=== PATIENT | female | born 1935 | race Caucasian/White ===

== ENCOUNTER 2016-09-27 06:28 | Emergency (ER) | payer OTHER, MEDICARE ==
[~2016-09-27] VITALS: Ht 162.6 cm; Wt 45.0 kg
[~2016-09-27 06:28] MED LIST: MAGN400T6 PO; METO25TA3 PO; XNX25 PO
[2016-09-27 06:32] VITALS: TEMP 36.7; Ht 162.6 cm; Wt 45.0 kg
[2016-09-27] MEDS ORDERED: XNX25 PO (06:49)
[2016-09-27] MEDS ORDERED: TPRSR/25 PO (06:49)
[2016-09-27] MEDS ORDERED: RANI150T2 PO (06:49)
[2016-09-27] MEDS ORDERED: SODIUM CHLORIDE 0.9% 500ML 500 ML IV STA (06:53)
[2016-09-27] MEDS ORDERED: ACET1TAB84 PO (06:54)
--- NOTE | 2016-09-27 06:57 | EMERGENCY ROOM VISIT NOTE ---
History Report prepared by Jeremy: Elina Haro Under the Supervision of: Dr. José Luis Jaime M.D. First contact with patient: 06:46 Chief Complaint: URINARY SYMPTOMS Stated Complaint: WEAKNESS Nursing Triage Summary: patient presents via EMS with c/o urinary frequency and also c/o feeling " shaky and weak" for past two days that worsened tonight. History of Present Illness The patient is a 80 year old female who presents to the Emergency Room with complaints of worsening urinary frequency beginning 2 days prior to arrival. The patient has been experiencing intermittent urinary tract infections for the past few years. She states that when the urinary symptoms present she is also experiencing headache, confusion, shakes, and weakness. The patient has had diarrhea episodes. She states that she saw her PCP on Sunday and no urinary tract infection was shown in the urine. A blood test showed that she was dehydrated. The patient has seen a urologist for the urinary issues. She notes a 30 pound weight loss in the past year with no known cause for the loss. The patient denies syncope episode, cough or fever. 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 A total of 10 systems reviewed and were otherwise negative. Past Medical & Surgical Medical Problems: (1) Depression (2) GERD (gastroesophageal reflux disease) Family History No pertinent family history Social History Smoking Status: Never Smoker Alcohol Use: none Housing Status: lives alone Occupation Status: retired Current/Historical Medications Scheduled Acetaminophen (Tylenol Arthritis Ext Rel), 650 MG PO Q8H Alprazolam (Alprazolam), 0.5 MG PO TID Metoprolol Succinate (Metoprolol Succinate ER), 12.5 MG PO QAM Ranitidine HCl (Ranitidine HCl), 150 MG PO DAILY Allergies Coded Allergies: Iodinated Diagnostic Agents (Unverified Allergy, Severe, Pt unable to describe, 09/27/16) states she was told never to allow to be given again due to severity of reaction Celecoxib (Verified Allergy, Mild, 09/27/16) Macrolides (Verified Allergy, Mild, 09/27/16) Corticosteroids (Verified Allergy, Unknown, 09/27/16) Sulfa Drugs (Verified Allergy, Unknown, 09/27/16) Dextromethorphan (Unverified Adverse Reaction, Intermediate, DIZZY, ) Guaifenesin (Unverified Adverse Reaction, Intermediate, DIZZY, 09/27/16) Procaterol (Unverified Adverse Reaction, Intermediate, Palpitations, ) Yellow Dye (Unverified Adverse Reaction, Intermediate, DIZZY, 09/27/16) Erythromycin (Verified Adverse Reaction, Unknown, stomach upset, 09/27/16) Physical Exam Vital Signs Date Time Temp Pulse Resp B/P (MAP) Pulse Ox O2 Delivery O2 Flow Rate FiO2 09/27/16 09:15 86 18 170/82 99 Room Air 09/27/16 07:58 82 09/27/16 07:55 82 22 160/87 09/27/16 06:39 90 09/27/16 06:32 36.7 88 22 175/96 100 Room Air Physical Exam GENERAL: Patient is frail, anxious appearing and in no acute distress. HEENT: No acute trauma, normocephalic atraumatic, mucous membranes dry, no nasal congestion, no scleral icterus. NECK: No stridor, no adenopathy, no meningismus, trachea is midline. LUNGS: No dyspnea. Clear to auscultation and equal bilaterally. No wheeze, no rhonchi. HEART: Regular rate and rhythm. No murmurs, rubs, gallops appreciated. ABDOMEN: Soft, nontender, bowel sounds positive, no masses appreciated, no peritonitis. BACK: No midline tenderness, no CVA tenderness EXTREMITIES: Normal motion all extremities, no cyanosis, no edema. NEUROLOGIC: Alert and oriented, no acute motor or sensory deficits, no focal weakness, cranial nerves grossly intact. SKIN: No rash, no jaundice, no diaphoresis. Medical Decision & Procedures ER Provider Diagnostic Interpretation: Radiology results and stated below per my review and radiologist interpretation: CT SCAN OF THE BRAIN WITHOUT IV CONTRAST CLINICAL HISTORY: Generalized weakness. COMPARISON STUDY: CT of the brain dated 07/08/2014. TECHNIQUE: Unenhanced axial CT scan of the brain is performed from the vertex to the skull base. CT DOSE: 537.48 mGy.cm FINDINGS: Brain parenchyma: There are age-related involutional changes noting mild subcortical and periventricular microangiopathic change. There is no hemorrhage, mass effect, or evidence of acute territorial ischemia by CT criteria. Morse-white matter is preserved. No extra-axial fluid collection is seen. Ventricles, sulci, cisterns: Prominent secondary to involutional change. Intracranial vasculature: There is atherosclerotic calcification of the cavernous carotid and vertebral arteries. Calvarium: Unremarkable. Sinuses and mastoids: The visualized paranasal sinuses are clear. The mastoid air cells are well pneumatized. Orbits: The bony orbits are grossly intact. IMPRESSION: There is no hemorrhage, mass effect, or evidence of acute territorial ischemia by CT criteria. Electronically signed by: Blair Swift M.D. 09/27/2016 7:52 AM Dictated Date/Time: 09/27/2016 7:50 AM CHEST ONE VIEW PORTABLE CLINICAL HISTORY: Generalized Weakness dyspnea COMPARISON STUDY: 01/08/2006 FINDINGS: Mild emphysematous change. Mild chronic parenchymal fibrotic change. Minimal apical pleural thickening. No acute infiltrate. IMPRESSION: Chronic change. No acute process. Electronically signed by: Arnie Yanez M.D. 09/27/2016 7:07 AM Dictated Date/Time: 09/27/2016 7:06 AM Laboratory Results 09/27/16 07:15 Red Blood Count 3.99, Mean Corpuscular Volume 95.2, Mean Corpuscular Hemoglobin 31.3, Mean Corpuscular Hemoglobin Concent 32.9, Mean Platelet Volume 10.3, Neutrophils (%) (Auto) 68.8, Lymphocytes (%) (Auto) 22.3, Monocytes (%) (Auto) 7.1, Eosinophils (%) (Auto) 0.8, Basophils (%) (Auto) 0.8, Neutrophils # (Auto) 4.35, Lymphocytes # (Auto) 1.41, Monocytes # (Auto) 0.45, Eosinophils # (Auto) 0.05, Basophils # (Auto) 0.05 09/27/16 07:15 Test 09/27/16 06:40 09/27/16 07:15 Urine Color YELLOW Urine Appearance CLEAR (CLEAR) Urine pH 8.5 (4.5-7.5) Urine Specific [place] 1.009 (1.000-1.030) Urine Protein NEG (NEG) Urine Glucose (UA) NEG (NEG) Urine Ketones NEG (NEG) Urine Occult Blood NEG (NEG) Urine Nitrite NEG (NEG) Urine Bilirubin NEG (NEG) Urine Urobilinogen NEG (NEG) Urine Leukocyte Esterase NEG (NEG) Urine WBC (Auto) 0 /hpf (0-5) Urine RBC (Auto) 0-4 /hpf (0-4) Urine Hyaline Casts (Auto) 0 /lpf (0-5) Urine Epithelial Cells (Auto) 0-5 /lpf (0-5) Urine Bacteria (Auto) NEG (NEG) White Blood Count 6.32 K/uL (4.8-10.8) Red Blood Count 3.99 M/uL (4.2-5.4) Hemoglobin 12.5 g/dL (12.0-16.0) Hematocrit 38.0 % (37-47) Mean Corpuscular Volume 95.2 fL (80-100) Mean Corpuscular Hemoglobin 31.3 pg (25-34) Mean Corpuscular Hemoglobin Concent 32.9 g/dl (32-36) Platelet Count 300 K/uL (130-400) Mean Platelet Volume 10.3 fL (7.4-10.4) Neutrophils (%) (Auto) 68.8 % Lymphocytes (%) (Auto) 22.3 % Monocytes (%) (Auto) 7.1 % Eosinophils (%) (Auto) 0.8 % Basophils (%) (Auto) 0.8 % Neutrophils # (Auto) 4.35 K/uL (1.4-6.5) Lymphocytes # (Auto) 1.41 K/uL (1.2-3.4) Monocytes # (Auto) 0.45 K/uL (0.11-0.59) Eosinophils # (Auto) 0.05 K/uL (0-0.5) Basophils # (Auto) 0.05 K/uL (0-0.2) RDW Standard Deviation 47.4 fL (36.4-46.3) RDW Coefficient of Variation 13.6 % (11.5-14.5) Immature Granulocyte % (Auto) 0.2 % Immature Granulocyte # (Auto) 0.01 K/uL (0.00-0.02) Erythrocyte Sedimentation Rate 10 mm/hr (0-21) Prothrombin Time 10.7 SECONDS (9.0-12.0) Prothromb Time International Ratio 1.0 (0.9-1.1) Activated Partial Thromboplast Time 24.5 SECONDS (21.0-31.0) Partial Thromboplastin Ratio 0.9 Anion Gap 7.0 mmol/L (3-11) Est Creatinine Clear Calc Drug Dose 49.8 ml/min Estimated GFR () 97.5 Estimated GFR (Non- 84.1 BUN/Creatinine Ratio 25.0 (10-20) Calcium Level 8.6 mg/dl (8.5-10.1) Phosphorus Level 2.9 mg/dl (2.5-4.9) Magnesium Level 2.4 mg/dl (1.8-2.4) Total Bilirubin 0.5 mg/dl (0.2-1) Direct Bilirubin 0.1 mg/dl (0-0.2) Aspartate Amino Transf (AST/SGOT) 18 U/L (15-37) Alanine Aminotransferase (ALT/SGPT) 23 U/L (12-78) Alkaline Phosphatase 57 U/L (45-117) Total Creatine Kinase 159 U/L (26-192) Creatine Kinase MB 2.9 ng/ml (0.5-3.6) Creatine Kinase MB Ratio 1.8 (0-3.0) Troponin I < 0.015 ng/ml (0-0.045) C-Reactive Protein < 0.29 mg/dl (0-0.29) Total Protein 7.2 gm/dl (6.4-8.2) Albumin 3.7 gm/dl (3.4-5.0) Lipase 158 U/L (73-393) Thyroid Stimulating Hormone (TSH) 1.140 uIu/ml (0.300-4.500) Free Thyroxine 1.20 ng/dl (0.80-1.60) Laboratory results as reviewed by me. Medications Administered Medications (Trade) Dose Ordered Sig/Adriana Route Start Time Stop Time Status Last Admin Dose Admin Sodium Chloride 500 ml @ 999 mls/hr Q31M STAT IV 09/27/16 06:53 09/27/16 07:23 DC 09/27/16 07:53 999 MLS/HR ECG Indication: weakness Rate (beats per minute): 86 Rhythm: normal sinus Findings: [facility] ED Course 0647: The patient was evaluated in room B11. A complete history and physical exam was performed. 0653: Sodium Chloride 500 ml @ 999 mls/hr IV. 0831: The patient is feeling the same. I talked with the family and patient. They are requesting [facility] hospitalist to evaluate the patient. 0836: Discussed the patient's case with Dr. Eugene Gresham. The patient will be evaluated. 920: I spoke with Dr. Eugene Gresham about the patient. He feels she should continue following with PCP and ask about follow up with Urology. 924: Reevaluated the patient. Discussed results and discharge instructions: She verbalized understanding and agreement. The patient is ready for discharge. Medical Decision Differential: Sepsis, Infectious (UTI/Pneumonia/Meningitis/etc), Metabolic/ Electrolyte Abnormality, Cardiac, Hepatic, Endocrine, Toxicologic, Neurologic, amongst other pathologies entertained. Medication Reconciliation: I attest that I have personally reviewed the patient 's current medication list. Blood pressure screening: Patient was found to have an elevated blood pressure and was referred to their primary doctor for recheck and further treatment. 80 yr old female with genearlized weakness, weight loss, and episodes of confusion/forgetfulness over last few weeks/months. She is in no distress here and looks well. Large work-up unremarkable, including negative CT head. Discussed limitations of ED testing and family requested evaluation by hospitalist. Hospitalist agrees no indication for admission at this time and that continued outpatient work-up reasonable. Discussed at length ability to return if worsening symptoms or other concerns. Consults Time Called: 08 Consulting Physician: Dr. Eugene Gresham Returned Call: 0836 Discussed the patient's case with Dr. Eugene Gresham. The patient will be evaluated. Impression Primary Impression: Generalized weakness Scribe Attestation The scribe's documentation has been prepared under my direction and personally reviewed by me in its entirety. I confirm that the note above accurately reflects all work, treatment, procedures, and medical decision making performed by me. Departure Information Dispostion Home / Self-Care Referrals Alonzo Limon D.O. (PCP) Forms HOME CARE DOCUMENTATION FORM, IMPORTANT VISIT INFORMATION Patient Instructions My [facility] Additional Instructions It is advised you follow up with Neurology. Discuss a referral with your primary care provider. We are always here to help. You have been examined and treated today on an emergency basis only. This is not a substitute for, or an effort to provide, complete comprehensive medical care. It is impossible to recognize and treat all injuries or illnesses in a single emergency department visit. It is therefore important that you follow up closely with your Primary Physician. Call as soon as possible for an appointment so you can review all labs, imaging and other testing that you had. Return to Emergency Department, call 911 or seek immediate medical attention if you feel your symptoms are worsening.
--- NOTE | 2016-09-27 07:08 | DIAGNOSTIC IMAGING REPORT ---
CHEST ONE VIEW PORTABLE CLINICAL HISTORY: Generalized Weakness dyspnea COMPARISON STUDY: 01/08/2006 FINDINGS: Mild emphysematous change. Mild chronic parenchymal fibrotic change. Minimal apical pleural thickening. No acute infiltrate. IMPRESSION: Chronic change. No acute process. Electronically signed by: Arnie Yanez M.D. 09/27/2016 7:07 AM Dictated Date/Time: 09/27/2016 7:06 AM
[2016-09-27 07:29] LABS: BASO % 0.8 %; BASO ABS # 0.05 K/uL (0-0.2); COMPLETE YES; EOS % 0.8 %; IG% 0.2 %; LYMPH % 22.3 %; LYMPH ABS # 1.41 K/uL (1.2-3.4); MEAN CELL VOLUME 95.2 fL (80-100); MEAN CORPUSCULAR HEMOGLOBIN 31.3 pg (25-34); MEAN CORPUSCULAR HGB CONC 32.9 g/dl (32-36); MEAN PLATELET VOLUME 10.3 fL (7.4-10.4); MONO % 7.1 %; NEUT % 68.8 %; PLATELET COUNT 300 K/uL (130-400); RED BLOOD COUNT 3.99 M/uL (4.2-5.4); WHITE BLOOD COUNT 6.32 K/uL (4.8-10.8)
[2016-09-27 07:32] LABS: URINE APPEARANCE CLEAR (CLEAR); URINE BILIRUBIN NEG (NEG); URINE COLOR YELLOW; URINE EPITHELIAL CELL AUTO 0-5 /lpf (0-5); URINE NITRITE NEG (NEG); URINE PH 8.5 (4.5-7.5); URINE SPECIFIC GRAVITY 1.009 (1.000-1.030); UROBILINOGEN NEG (NEG); ZZUR CULT IF INDIC CLEAN CATCH NO
[2016-09-27 07:40] LABS: MANUAL MICROSCOPIC REQUIRED? NO; REVIEW REQ? NO
[2016-09-27 07:43] LABS: PARTIAL THROMBOPLASTIN RATIO 0.9; PROTHROMBIN TIME (PATIENT) 10.7 SECONDS (9.0-12.0)
[2016-09-27 07:46] LABS: ALT/SGPT 23 U/L (12-78); AST/SGOT 18 U/L (15-37); BLOOD UREA NITROGEN 16 mg/dl (7-18); CALCIUM 8.6 mg/dl (8.5-10.1); CARBON DIOXIDE 27 mmol/L (21-32); CHLORIDE 111 mmol/L (98-107); CREATININE 0.63 mg/dl (0.60-1.20); GLUCOSE 88 mg/dl (70-99); MAGNESIUM 2.4 mg/dl (1.8-2.4); POTASSIUM 3.9 mmol/L (3.5-5.1); SODIUM 145 mmol/L (136-145)
[2016-09-27 07:50] LABS: ALKALINE PHOSPHATASE 57 U/L (45-117); C-REACTIVE PROTEIN < 0.29 mg/dl (0-0.29); CKMB/CK RATIO 1.8 (0-3.0); PHOSPHORUS 2.9 mg/dl (2.5-4.9)
--- NOTE | 2016-09-27 07:53 | DIAGNOSTIC IMAGING REPORT ---
CT SCAN OF THE BRAIN WITHOUT IV CONTRAST CLINICAL HISTORY: Generalized weakness. COMPARISON STUDY: CT of the brain dated 07/08/2014. TECHNIQUE: Unenhanced axial CT scan of the brain is performed from the vertex to the skull base. CT DOSE: 537.48 mGy.cm FINDINGS: Brain parenchyma: There are age-related involutional changes noting mild subcortical and periventricular microangiopathic change. There is no hemorrhage, mass effect, or evidence of acute territorial ischemia by CT criteria. Morse-white matter is preserved. No extra-axial fluid collection is seen. Ventricles, sulci, cisterns: Prominent secondary to involutional change. Intracranial vasculature: There is atherosclerotic calcification of the cavernous carotid and vertebral arteries. Calvarium: Unremarkable. Sinuses and mastoids: The visualized paranasal sinuses are clear. The mastoid air cells are well pneumatized. Orbits: The bony orbits are grossly intact. IMPRESSION: There is no hemorrhage, mass effect, or evidence of acute territorial ischemia by CT criteria. Electronically signed by: Blair Swift M.D. 09/27/2016 7:52 AM Dictated Date/Time: 09/27/2016 7:50 AM
[2016-09-27 08:16] LABS: THYROID STIMULATING HORMONE 1.14 uIu/ml (0.300-4.500)
[2016-09-27 09:15] VITALS: BP 170/82; PULSE 86; O2SAT 99
== END 2016-09-27 09:58 | disposition home or self-care (01) ==
LOC: EDBD 06:28 → C.EDB 06:29
DX: R53.1 Weakness (principal); F32.9 Major depressive disorder, single episode, unspecified; K21.9 Gastro-esophageal reflux disease without esophagitis

== ENCOUNTER → 2016-10-05 | Outpatient (CLI) | payer OTHER, MEDICARE ==
[~2016-10-05] MED LIST changes: +ACET1TAB84 PO; -MAGN400T6 PO; -METO25TA3 PO; +RANI150T2 PO; +TPRSR/25 PO
--- NOTE | 2016-10-05 16:08 | DIAGNOSTIC IMAGING REPORT ---
MRI OF THE BRAIN WITHOUT CONTRAST CLINICAL HISTORY: Gait dysfunction. Confusion. Dementia. COMPARISON STUDY: Head CT September 27, 2016. TECHNIQUE: Utilizing a 1.5 Daja magnet and dedicated coil, multiplanar, multiecho imaging of the brain was performed without IV contrast. FINDINGS: There are no areas of restricted diffusion. No acute intracranial hemorrhage, midline shift or mass effect is present. Ventricular system is normal for age. Basilar cisterns are patent. Flow-voids for the major intracranial vessels are present. There is mild atrophy. There are are multiple white matter T2 hyperintense foci which suggest small vessel disease. There is no intracranial mass on this unenhanced examination. Calvarial signal is maintained. Orbits and sinuses are unremarkable. IMPRESSION: 1. No acute intracranial findings. 2. Mild atrophy and scattered white matter T2 hyperintense foci which suggest small vessel disease. Electronically signed by: Keshav Perez M.D. 10/05/2016 4:07 PM Dictated Date/Time: 10/05/2016 4:04 PM
--- NOTE | 2016-10-05 16:31 | DIAGNOSTIC IMAGING REPORT ---
CERVICAL SPINE MRI HISTORY: Neck pain. COGNITIVE CHANGES, GAIT DYSFUNCTION TECHNIQUE: Multiplanar multisequence MRI of the cervical spine was performed without the use of contrast. COMPARISON STUDY: None. FINDINGS: Mild levoscoliosis of the cervical spine. Straightening of the cervical spine. Alignment is intact. No fractures within the cervical spine. Prevertebral soft tissues and the C1-C2 interval are maintained. The cervical spinal cord demonstrates a normal signal intensity. Bilateral C3-C4 facets are fused. Mild disc space narrowing at C3-C4. Moderate disc space narrowing at C5-C6 and C6-C7. C2-C3: No significant central canal or neural foraminal narrowing. C3-C4: No significant central canal or neural foraminal narrowing. C4-C5: Small broad-based posterior disc osteophyte complex which abuts and slightly deforms the anterior cord. Mild right neural foraminal narrowing. C5-C6: Tiny broad-based posterior disc osteophyte complex without significant central canal or neural foraminal narrowing. C6-C7: Tiny broad-based posterior disc osteophyte complex without significant central canal or neural foraminal narrowing. C7-T1: No significant central canal or neural foraminal narrowing. IMPRESSION: 1. Straightening of the cervical spine. 2. Mild levoscoliosis. 3. Mild degenerative changes as described above. Electronically signed by: Jermain Elena M.D. 10/05/2016 4:30 PM Dictated Date/Time: 10/05/2016 4:20 PM
== END | disposition home or self-care (01) ==
LOC: C.MRIBC 15:16
PROVIDERS: ATTEND Psychiatry & Neurology Neurology
DX: R26.9 Unspecified abnormalities of gait and mobility (principal); R41.89 Other symptoms and signs involving cognitive functions and awareness

== ENCOUNTER 2018-07-31 11:17 | Observation (INO) ==
[2018-07-31 12:20] LABS: Appearance Urine Clear (Clear); Bacteria Urine Automated Negative (Negative); Bilirubin Urine Negative (Negative); Blood Urine Negative (Negative); Cast Urine Automated 0 /lpf (0-5); Color Urine Yellow; Glucose Urine UA Negative (Negative); Ketones Urine Negative (Negative); Leukocyte Esterase Urine Trace (Negative); Nitrite Urine Negative (Negative); Protein Urine Negative (Negative); RBC Urine Automated 0-4 /hpf (0-4); Specific Gravity Urine 1.011 (1.000-1.030); Urobilinogen Urine Negative (Negative); pH Urine 7.5 (4.5-7.5)
[2018-07-31 12:44] LABS: Basophils # (auto) 0.04 K/uL (0-0.2); Basophils % (auto) 0.5 %; Eosinophils # (auto) 0.11 K/uL (0-0.5); Eosinophils % (auto) 1.3 %; Hematocrit (blood only) 34.9 % (37-47); Hemoglobin 11.4 g/dL (12.0-16.0); Immature Granulocytes # (auto) 0.02 K/uL (0.00-0.02); Immature Granulocytes % (auto) 0.2 %; Lymphocytes # (auto) 2.14 K/uL (1.2-3.4); Lymphocytes % (auto) 25.9 %; Mean Corpuscular Hgb Conc 32.7 g/dL (32-36); Mean Corpuscular Volume 94.1 fL (80-100); Mean Platelet Volume 10.1 fL (7.4-10.4); Monocytes # (auto) 0.74 K/uL (0.11-0.59); Monocytes % (auto) 8.9 %; Neutrophils # (auto) 5.22 K/uL (1.4-6.5); Neutrophils % (auto) 63.2 %; Platelet Count 318 K/uL (130-400); RDW Coefficient of Variation 14.7 % (11.5-14.5); RDW Standard Deviation 50.4 fL (36.4-46.3); Red Blood Count 3.71 M/uL (4.2-5.4); White Blood Count 8.27 K/uL (4.8-10.8)
[2018-07-31 13:05] LABS: Alanine Aminotransferase 19 U/L (12-78); Albumin Level 3.2 gm/dl (3.4-5.0); Aspartate Aminotransferase 17 U/L (15-37); BUN Creatinine Ratio 23.6 (10-20); Blood Urea Nitrogen 16 mg/dl (7-18); Calcium 8.9 mg/dl (8.5-10.1); Carbon Dioxide 30 mmol/L (21-32); Chloride 107 mmol/L (98-107); Creatinine Clr Calc Pharmacy 54.1 ml/min; Est GFR (African American) 93.8; Est GFR (Non-African American) 80.9; Glucose 83 mg/dl (70-99); Potassium 3.9 mmol/L (3.5-5.1); Sodium 142 mmol/L (136-145)
[2018-07-31 13:10] LABS: Albumin Globulin Ratio 0.8 (0.9-2); Alkaline Phosphatase 68 U/L (45-117); Bilirubin,Total 0.3 mg/dl (0.2-1); Globulin 3.9 gm/dl (2.5-4.0); Total Protein 7.1 gm/dl (6.4-8.2); Troponin I < 0.015 ng/ml (0-0.045)
[2018-07-31] MEDS ORDERED: ERTAPENEM SODIUM 1,000 MG in SYRINGE 0 ML IV STA (13:36)
[2018-07-31] MEDS ORDERED: ERTAPENEM SODIUM 1,000 MG in SODIUM CHLORIDE 0.9% 50 ML IV SCH (13:36)
--- NOTE | 2018-07-31 13:48 | Emergency Department Note ---
Entered by Liat Painter acting as a scribe for Minor Altman M.D. History of Present Illness General Chief complaint: Urinary Symptoms Stated complaint: BLADDER ISSUES Source: patient and family Mode of arrival: ambulatory Limitations: no limitations History of Present Illness Maximum Pain Intensity: 7 The patient is an 82 year old female with a history of UTI and dementia who presents to the ED with complaints of constant urinary symptoms that onset 3 days ago. The patient presents with her daughter. She states that the patient lives at the [facility]. Per daughter, the patient is not a good historian. She states that the patient was started on Macrobid yesterday. The patient complains of pain with urination, and fatigue. The patient denies fevers and nausea. She notes that she was recently started on antidepressants. The daughter mentions that she has not had any recent falls. Home Medications Home Medications Medication Instructions Recorded Confirmed Type alprazolam 0.25 mg PO BID 03/02/18 07/31/18 History metoprolol succinate 12.5 mg PO BID 03/02/18 07/31/18 History mirtazapine 15 mg PO BID 03/02/18 07/31/18 History sennosides [Senokot] 8.6 mg PO BID PRN 03/02/18 07/31/18 History nitrofurantoin monohyd/m-cryst 100 mg PO BID 07/31/18 07/31/18 History [Macrobid] pumpkin seed extract-soy germ [Azo 1 dose PO UD PRN 07/31/18 07/31/18 History Bladder Control] Allergies Allergy/AdvReac Type Severity Reaction Status Date / Time Iodinated Contrast- Oral and Allergy Severe Pt unable Unverified 07/31/18 12:10 IV Dye to describe celecoxib Allergy Mild Unknown Verified 07/31/18 12:10 Macrolide Antibiotics Allergy Mild Unknown Verified 07/31/18 12:10 Corticosteroids Allergy Unknown Unknown Verified 07/31/18 12:10 (Glucocorticoids) Sulfa (Sulfonamide Allergy Unknown Unknown Verified 07/31/18 12:10 Antibiotics) dextromethorphan AdvReac Intermediate DIZZY Unverified 07/31/18 12:10 guaifenesin AdvReac Intermediate DIZZY Unverified 07/31/18 12:10 procaterol AdvReac Intermediate Palpitation Unverified 07/31/18 12:10 s yellow dye AdvReac Intermediate DIZZY Unverified 07/31/18 12:10 erythromycin base AdvReac Unknown stomach Verified 07/31/18 12:10 upset Past Med/Surg History Medical History Recurrent UTI Dementia (Chronic) Depression (Resolved) GERD (gastroesophageal reflux disease) (Chronic) Facial laceration (Acute) Fall (Acute) Radial neck fracture (Acute) No pertinent family history Family History Other No significant family history Social History Preferred Language: Gibralt[place] 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: Impaired Beliefs That Will Affect Care: None Current Living Situation: [facility] Current Living Situation Comment: [facility] Other Information That Helps Us Care for You: No Feels Safe at Home: Yes Safety Concerns: Feels Safe At This Time Smoking Status: Never smoker Hx Alcohol Use: No Hx Substance Use: No Review of Systems See HPI for pertinent positives & negatives. and A total of 10 systems reviewed and were otherwise negative Physical Exam Vital Signs Vital Signs - 24 hr 07/31/18 11:28 07/31/18 13:18 07/31/18 13:59 Temperature 36.6 C Temperature Source Oral Sepsis Recent Fever Within 48 Hours No Sepsis New/Unexplained Change in Mental Status No Sepsis Action Taken by Nursing No Action Required Pulse Rate 71 Pulse Rate [Finger] 76 Pulse Rhythm [Finger] Regular Pulse Strength [Finger] Normal Respiratory Rate 17 18 Respiratory Effort / Characteristics Non-Labored Non-Labored Spontaneous Respiratory Depth Normal Normal Respiratory Pattern Regular Blood Pressure 141/69 H Blood Pressure [Right Arm] 152/64 H Blood Pressure Mean 93 Blood Pressure Mean [Right Arm] 93 Blood Pressure Position Sitting Blood Pressure Position [Right Arm] Lying Pulse Oximetry 100 98 Oxygen Delivery Method Room Air Room Air Room Air GENERAL: Awake, alert, well-appearing, in no distress. Some confusion regarding events HENT: Normocephalic, atraumatic. Oropharynx unremarkable. EYES: Normal conjunctiva. Sclera non-icteric. NECK: Supple. No nuchal rigidity. RESPIRATORY: Clear to auscultation. No wheezes. Normal respiratory effort. CARDIAC: Normal rate. Normal rhythm. Extremities warm and well perfused. GI: Soft, non-distended. No tenderness to palpation. No rebound or guarding. No masses. RECTAL: Deferred. MUSCULOSKELETAL: Atraumatic. Chest examination reveals no tenderness. There is no CVA tenderness to palpation. LOWER EXTREMITIES: Calves are equal size bilaterally and non-tender. No edema NEURO: Normal sensorium. No sensory or motor deficits noted. No facial droop. Some confusion regarding events. SKIN: Warm and dry. No rash or jaundice noted. Course 1153: Past medical records reviewed. The patient was evaluated in room C05. A complete history and physical examination was performed. 1326: I reviewed the patient's case with [facility] GARC[facility] Hospitalist Audra Gresham. She will evaluate the patient for further management. Administered Medications Ertapenem 1,000 mg/ Sodium (Chloride) 60 mls @ 100 mls/hr IV TODAY@1336 MARIAA Stop: 07/31/18 19:00 Last Admin: 07/31/18 14:10 Dose: 100 mls/hr Documented by: [id number] Medical Decision Making Differential Diagnosis Differential diagnoses: Metabolic, infection, hypo/hyperglycemia, electrolyte abnormalities, cardiac sources, intracerebral event, toxicologic, neurologic, as well as others were entertained. Medical Records Attestation: I reviewed the patient's medical records. Home Medications Current Medication List: was personally reviewed by me Laboratory Data Attestation: I reviewed the patient's lab results. Result diagrams: 07/31/18 12:14 07/31/18 12:14 Lab Results 07/31/18 07/31/18 07/31/18 Range/Units 11:55 12:14 12:14 WBC 8.27 (4.8-10.8) K/uL RBC 3.71 L (4.2-5.4) M/uL Hgb 11.4 L (12.0-16.0) g/dL Hct 34.9 L (37-47) % MCV 94.1 (80-100) fL MCH 30.7 (25-34) pg MCHC 32.7 (32-36) g/dL RDW Std Deviation 50.4 H (36.4-46.3) fL RDW Coeff of Bull 14.7 H (11.5-14.5) % Plt Count 318 (130-400) K/uL MPV 10.1 (7.4-10.4) fL Immature Gran % (Auto) 0.2 % Neut % (Auto) 63.2 % Lymph % (Auto) 25.9 % [place] % (Auto) 8.9 % Eos % (Auto) 1.3 % Baso % (Auto) 0.5 % Immature Gran # (Auto) 0.02 (0.00-0.02) K/uL Neut # (Auto) 5.22 (1.4-6.5) K/uL Lymph # (Auto) 2.14 (1.2-3.4) K/uL [place] # (Auto) 0.74 H (0.11-0.59) K/uL Eos # (Auto) 0.11 (0-0.5) K/uL Baso # (Auto) 0.04 (0-0.2) K/uL Sodium 142 (136-145) mmol/L Potassium 3.9 (3.5-5.1) mmol/L Chloride 107 (98-107) mmol/L Carbon Dioxide 30 (21-32) mmol/L Anion Gap 6.0 (3-11) BUN 16 (7-18) mg/dl Creatinine 0.68 (0.6-1.2) mg/dl Est Cr Clr Drug Dosing 54.1 ml/min Est GFR ( Amer) 93.8 Est GFR (Non-Af Amer) 80.9 BUN/Creatinine Ratio 23.6 H (10-20) Glucose 83 (70-99) mg/dl Lactate (0.4-2.0) mmol/L Calcium 8.9 (8.5-10.1) mg/dl Total Bilirubin 0.3 (0.2-1) mg/dl AST 17 (15-37) U/L ALT 19 (12-78) U/L Alkaline Phosphatase 68 (45-117) U/L Troponin I < 0.015 (0-0.045) ng/ml Total Protein 7.1 (6.4-8.2) gm/dl Albumin 3.2 L (3.4-5.0) gm/dl Globulin 3.9 (2.5-4.0) gm/dl Albumin/Globulin Ratio 0.8 L (0.9-2) Lipase 127 (73-393) U/L Urine Color Yellow Urine Appearance Clear (Clear) Urine pH 7.5 (4.5-7.5) Ur Specific [place] 1.011 (1.000-1.030) Urine Protein Negative (Negative) Urine Glucose (UA) Negative (Negative) Urine Ketones Negative (Negative) Urine Blood Negative (Negative) Urine Nitrite Negative (Negative) Urine Bilirubin Negative (Negative) Urine Urobilinogen Negative (Negative) Ur Leukocyte Esterase Trace H (Negative) Urine WBC (Auto) 5-10 H (0-5) /hpf Urine RBC (Auto) 0-4 (0-4) /hpf U Hyaline Cast (Auto) 0 (0-5) /lpf U Epithel Cells (Auto) 5-10 H (0-5) /lpf Urine Bacteria (Auto) Negative (Negative) 07/31/18 Range/Units 12:14 WBC (4.8-10.8) K/uL RBC (4.2-5.4) M/uL Hgb (12.0-16.0) g/dL Hct (37-47) % MCV (80-100) fL MCH (25-34) pg MCHC (32-36) g/dL RDW Std Deviation (36.4-46.3) fL RDW Coeff of Bull (11.5-14.5) % Plt Count (130-400) K/uL MPV (7.4-10.4) fL Immature Gran % (Auto) % Neut % (Auto) % Lymph % (Auto) % [place] % (Auto) % Eos % (Auto) % Baso % (Auto) % Immature Gran # (Auto) (0.00-0.02) K/uL Neut # (Auto) (1.4-6.5) K/uL Lymph # (Auto) (1.2-3.4) K/uL [place] # (Auto) (0.11-0.59) K/uL Eos # (Auto) (0-0.5) K/uL Baso # (Auto) (0-0.2) K/uL Sodium (136-145) mmol/L Potassium (3.5-5.1) mmol/L Chloride (98-107) mmol/L Carbon Dioxide (21-32) mmol/L Anion Gap (3-11) BUN (7-18) mg/dl Creatinine (0.6-1.2) mg/dl Est Cr Clr Drug Dosing ml/min Est GFR ( Amer) Est GFR (Non-Af Amer) BUN/Creatinine Ratio (10-20) Glucose (70-99) mg/dl Lactate 0.9 (0.4-2.0) mmol/L Calcium (8.5-10.1) mg/dl Total Bilirubin (0.2-1) mg/dl AST (15-37) U/L ALT (12-78) U/L Alkaline Phosphatase (45-117) U/L Troponin I (0-0.045) ng/ml Total Protein (6.4-8.2) gm/dl Albumin (3.4-5.0) gm/dl Globulin (2.5-4.0) gm/dl Albumin/Globulin Ratio (0.9-2) Lipase (73-393) U/L Urine Color Urine Appearance (Clear) Urine pH (4.5-7.5) Ur Specific [place] (1.000-1.030) Urine Protein (Negative) Urine Glucose (UA) (Negative) Urine Ketones (Negative) Urine Blood (Negative) Urine Nitrite (Negative) Urine Bilirubin (Negative) Urine Urobilinogen (Negative) Ur Leukocyte Esterase (Negative) Urine WBC (Auto) (0-5) /hpf Urine RBC (Auto) (0-4) /hpf U Hyaline Cast (Auto) (0-5) /lpf U Epithel Cells (Auto) (0-5) /lpf Urine Bacteria (Auto) (Negative) ECG Data Attestation: I personally reviewed and interpreted this ECG as follows: Indication: palpitations Rate (beats per minute): 76 Rhythm: sinus rhythm Findings: + LBBB and + PAC Comparison ECG Date: from (03/02/2019) Change: no significant change Blood Pressure Blood Pressure Findings: Elevated blood pressure Blood Pressure Disposition: further management by hospitalist GIDEON Narrative Patient is a 82-year-old female history of some dementia and recurrent UTIs sitting from her facility with reports of a UTI. Recently had symptoms of dysuria and urine culture and urinalysis completed. Started yesterday on Macrobid. Complains of generalized weakness. No significant back pain. Benign exam does not appear grossly septic. Urine culture shows ESBL with concerns for significant resistance. PCP directed here for admission for treatment with IV carbapems. Basic labs here show no evidence of acute dehydration or electrolyte abnormalities. Again reassuring do not believe this is sepsis. Generalized weakness likely related to UTI but no other acute findings or evidence of cardiac injury. No evidence of acute hepatitis or pancreatitis either. Blood cultures were obtained. Discussed with the [facility] hospitalist culture findings. Attempted to set up outpatient ertapenem daily however will require the patient to be observed here overnight for this entire process to be completed for her to receive in the appropriate amount of time. Discussed with patient and family are in agreement. Impression & Plan Acute UTI, Weakness Discharge Plan Visit Data Chief Complaint: Urinary Symptoms Stated Complaint: BLADDER ISSUES ED Provider: Minor Altman Discharge Problem: Acute UTI, Weakness Patient Disposition: Being Evaluated by Hospitalist Forms Stand Alone Forms: My [facility] Prescriptions Prescriptions: No Action sennosides [Senokot] 8.6 mg Tablet 8.6 mg PO BID PRN (Reason: Constipation) RF: 0 alprazolam 0.25 mg tablet 0.25 mg PO BID RF: 0 mirtazapine 15 mg tablet 15 mg PO BID RF: 0 metoprolol succinate 25 mg tablet extended release 24 hr 12.5 mg PO BID RF: 0 nitrofurantoin monohyd/m-cryst [Macrobid] 100 mg Capsule 100 mg PO BID RF: 0 Azo Bladder Control 300 mg Capsule 1 dose PO UD PRN (Reason: NEEDED) RF: 0 Referrals Referrals: YOMI, [Primary Care Provider] - The scribe's documentation has been prepared under my direction and personally reviewed by me in its entirety. I confirm that the note above accurately refl ects all work, treatment, procedures, and medical decision making performed by me.
[2018-07-31] MEDS ORDERED: ACETAMINOPHEN 325 MG TAB PO PRN (14:35)
--- NOTE | 2018-07-31 15:06 | History & Physical Report ---
Date of Service July 31, 2018 Assessment & Plan (1) UTI due to extended-spectrum beta lactamase (ESBL) producing Escherichia coli: -Admit to [facility] -Patient sent from [facility] for evaluation of ESBL producing E. coli urine culture -Patient with history of similar urine culture 05/2018 which was treated with Ceftin -Currently, patient hemodynamically stable without any signs of sepsis -Received IV ertapenem in the ED according to urine culture, will continue -Admit for observation overnight with plans to discharge back to [facility] tomorrow with home health for administration of IV ertapenem -ID consult for recommendation of duration of antibiotic -Patient follows with Dr. Torres, family requesting appointment in October to be moved up (2) HTN (hypertension): -BP controlled, Continue metoprolol (3) Dementia: (4) Depression: -Continue Remeron and alprazolam (5) DVT prophylaxis: -SQ heparin History of Present Illness Chief Complaint: UTI Primary Care Provider: Alonzo Limon DO 82-year-old female who was sent to the ED from [facility] for evaluation of resistant UTI. Patient has underlying dementia so therefore history is somewhat limited from her. Patient's daughters at the bedside who provides some information. They report that the patient chronically complains of urinary burning however it seems as though her complaints of increased over the past couple of weeks. Outpatient urine sample was obtained with culture showing a resistant/ESBL producing E. coli requiring IV antibiotics. Patient also reports lower abdominal/bladder pain. She reports severe burning and pain with urinat ion. She has felt generally weak. No fevers or chills. She denies nausea and vomiting. She reports lightheadedness and dizziness with standing however denies any syncopal events. No chest pain or shortness of breath. In the ED, patient is hemodynamically stable. She was given a dose of IV ertapenem according to urine culture sensitivities. Allergies Allergy/AdvReac Type Severity Reaction Status Date / Time Iodinated Contrast- Oral and Allergy Severe Pt unable Unverified 07/31/18 12:10 IV Dye to describe celecoxib Allergy Mild Unknown Verified 07/31/18 12:10 Macrolide Antibiotics Allergy Mild Unknown Verified 07/31/18 12:10 Corticosteroids Allergy Unknown Unknown Verified 07/31/18 12:10 (Glucocorticoids) Sulfa (Sulfonamide Allergy Unknown Unknown Verified 07/31/18 12:10 Antibiotics) dextromethorphan AdvReac Intermediate DIZZY Unverified 07/31/18 12:10 guaifenesin AdvReac Intermediate DIZZY Unverified 07/31/18 12:10 procaterol AdvReac Intermediate Palpitation Unverified 07/31/18 12:10 s yellow dye AdvReac Intermediate DIZZY Unverified 07/31/18 12:10 erythromycin base AdvReac Unknown stomach Verified 07/31/18 12:10 upset Home Medications Home Medications Medication Instructions Recorded Confirmed Type alprazolam 0.25 mg PO BID 03/02/18 07/31/18 History metoprolol succinate 12.5 mg PO BID 03/02/18 07/31/18 History mirtazapine 30 mg PO HS 03/02/18 07/31/18 History sennosides [Senokot] 8.6 mg PO BID PRN 03/02/18 07/31/18 History nitrofurantoin monohyd/m-cryst 100 mg PO BID 07/31/18 07/31/18 History [Macrobid] pumpkin seed extract-soy germ [Azo 1 dose PO UD PRN 07/31/18 07/31/18 History Bladder Control] Past Med/Surg History Medical History History of hysterectomy (Chronic) LBBB (left bundle branch block) (Chronic) IBS (irritable bowel syndrome) (Chronic) Recurrent UTI (Chronic) Dementia (Chronic) Depression (Chronic) GERD (gastroesophageal reflux disease) (Chronic) Surgical History S/P tonsillectomy and adenoidectomy (Chronic) History of appendectomy (Chronic) H/O arthroscopic knee surgery (Chronic) H/O oophorectomy (Chronic) Family History Father Coronary heart disease Mother Coronary heart disease Social History Preferred Language: Spanish 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: Impaired Beliefs That Will Affect Care: None Current Living Situation: [facility] Current Living Situation Comment: [facility] Other Information That Helps Us Care for You: No Feels Safe at Home: Yes Safety Concerns: Feels Safe At This Time Smoking Status: Never smoker Hx Alcohol Use: No Hx Substance Use: No Review of Systems Review of Systems: ROS per HPI, all other systems reviewed and negative - somewhat limited secondary to patient's underlying dementia Physical Exam Constitutional: WD/WN, vitals as above Eyes: PERRL, conjunctivae normal, anicteric sclerae ENMT: external ear and nose normal, oropharynx normal Respiratory: normal respiratory effort, lungs clear to auscultation Cardiovascular: Rate/Rhythm: regular rate and regular rhythm Vessels: normal peripheral pulses Extremities: no edema Gastrointestinal (Abdomen): Inspection/Auscultation: normal bowel sounds; abdomen not distended Percussion/Palpation: + abdomen tender (Mild suprapubic) and abdomen soft; no hepatosplenomegaly Musculoskeletal: no cyanosis or clubbing, extremities motor strength 5/5 Skin: no rashes, warm and dry Neurologic: PERRL, EOMI, accommodation nl, no face palsy, no dysarthria Psychiatric: Orientation: alert, oriented to person and oriented to place; + not oriented to time Insight: + limited insight Results & Data Vital Signs (Past 12 Hours) Vital Signs Temp Pulse Pulse Resp BP BP Pulse Ox 07/31/18 13:18 76 18 152/64 H 98 07/31/18 11:28 36.6 C 71 17 141/69 H 100 Laboratory Results Laboratory Last Values WBC 8.27 K/uL (4.8-10.8) 07/31/18 12:14 RBC 3.71 M/uL (4.2-5.4) L 07/31/18 12:14 Hgb 11.4 g/dL (12.0-16.0) L 07/31/18 12:14 Hct 34.9 % (37-47) L 07/31/18 12:14 MCV 94.1 fL (80-100) 07/31/18 12:14 MCH 30.7 pg (25-34) 07/31/18 12:14 MCHC 32.7 g/dL (32-36) 07/31/18 12:14 RDW Std Deviation 50.4 fL (36.4-46.3) H 07/31/18 12:14 RDW Coeff of Bull 14.7 % (11.5-14.5) H 07/31/18 12:14 Plt Count 318 K/uL (130-400) 07/31/18 12:14 MPV 10.1 fL (7.4-10.4) 07/31/18 12:14 Immature Gran % (Auto) 0.2 % 07/31/18 12:14 Neut % (Auto) 63.2 % 07/31/18 12:14 Lymph % (Auto) 25.9 % 07/31/18 12:14 [place] % (Auto) 8.9 % 07/31/18 12:14 Eos % (Auto) 1.3 % 07/31/18 12:14 Baso % (Auto) 0.5 % 07/31/18 12:14 Immature Gran # (Auto) 0.02 K/uL (0.00-0.02) 07/31/18 12:14 Neut # (Auto) 5.22 K/uL (1.4-6.5) 07/31/18 12:14 Lymph # (Auto) 2.14 K/uL (1.2-3.4) 07/31/18 12:14 [place] # (Auto) 0.74 K/uL (0.11-0.59) H 07/31/18 12:14 Eos # (Auto) 0.11 K/uL (0-0.5) 07/31/18 12:14 Baso # (Auto) 0.04 K/uL (0-0.2) 07/31/18 12:14 Sodium 142 mmol/L (136-145) 07/31/18 12:14 Potassium 3.9 mmol/L (3.5-5.1) 07/31/18 12:14 Chloride 107 mmol/L (98-107) 07/31/18 12:14 Carbon Dioxide 30 mmol/L (21-32) 07/31/18 12:14 Anion Gap 6.0 (3-11) 07/31/18 12:14 BUN 16 mg/dl (7-18) 07/31/18 12:14 Creatinine 0.68 mg/dl (0.6-1.2) 07/31/18 12:14 Est Cr Clr Drug Dosing 54.1 ml/min 07/31/18 12:14 Est GFR ( Amer) 93.8 07/31/18 12:14 Est GFR (Non-Af Amer) 80.9 07/31/18 12:14 BUN/Creatinine Ratio 23.6 (10-20) H 07/31/18 12:14 Glucose 83 mg/dl (70-99) 07/31/18 12:14 Lactate 0.9 mmol/L (0.4-2.0) 07/31/18 12:14 Calcium 8.9 mg/dl (8.5-10.1) 07/31/18 12:14 Total Bilirubin 0.3 mg/dl (0.2-1) 07/31/18 12:14 AST 17 U/L (15-37) 07/31/18 12:14 ALT 19 U/L (12-78) 07/31/18 12:14 Alkaline Phosphatase 68 U/L (45-117) 07/31/18 12:14 Troponin I < 0.015 ng/ml (0-0.045) 07/31/18 12:14 Total Protein 7.1 gm/dl (6.4-8.2) 07/31/18 12:14 Albumin 3.2 gm/dl (3.4-5.0) L 07/31/18 12:14 Globulin 3.9 gm/dl (2.5-4.0) 07/31/18 12:14 Albumin/Globulin Ratio 0.8 (0.9-2) L 07/31/18 12:14 Lipase 127 U/L (73-393) 07/31/18 12:14 Urine Color Yellow 07/31/18 11:55 Urine Appearance Clear (Clear) 07/31/18 11:55 Urine pH 7.5 (4.5-7.5) 07/31/18 11:55 Ur Specific [place] 1.011 (1.000-1.030) 07/31/18 11:55 Urine Protein Negative (Negative) 07/31/18 11:55 Urine Glucose (UA) Negative (Negative) 07/31/18 11:55 Urine Ketones Negative (Negative) 07/31/18 11:55 Urine Blood Negative (Negative) 07/31/18 11:55 Urine Nitrite Negative (Negative) 07/31/18 11:55 Urine Bilirubin Negative (Negative) 07/31/18 11:55 Urine Urobilinogen Negative (Negative) 07/31/18 11:55 Ur Leukocyte Esterase Trace (Negative) H 07/31/18 11:55 Urine WBC (Auto) 5-10 /hpf (0-5) H 07/31/18 11:55 Urine RBC (Auto) 0-4 /hpf (0-4) 07/31/18 11:55 U Hyaline Cast (Auto) 0 /lpf (0-5) 07/31/18 11:55 U Epithel Cells (Auto) 5-10 /lpf (0-5) H 07/31/18 11:55 Urine Bacteria (Auto) Negative (Negative) 07/31/18 11:55 Code Status & VTE Plan Code Status Patient is a DNR as per my discussion with her and her daughters who were at the bedside. VTE Prophylaxis Plan VTE Prophylaxis will be ordered: Yes Supervising Physician Co-Signing Physician Notes I have seen and examined the patient and have discussed the case with the provider above. I agree with the assessment and plan as stated with the following exceptions. The patient is an 82 yo F with frequent UTIs reported and multiple antibiotic allergies. She currently reports urinary urgency, increased frequency and burning. She is hemodynamically stable and afebrile. Abdominal exam reveals some suprapubic tenderness. Lung and heart exams are normal. She is WNWD and in no acute distress and no respiratory distress. Consented her for a midline to be placed this evening in preparation for a short course of IV antibiotics based on ID recommendations. She lives at [facility]- and home health for daily infusions would be preferred. Appreciate Case Management's assistance with setting this up. Otherwise, plan as above. DO Hema
[2018-07-31] MEDS ORDERED: SENNA 8.6 MG TAB PO PRN (16:25)
[2018-07-31 17:44] LABS: Prothrombin Time 10.6 Seconds (9.0-12.0)
[2018-07-31] MEDS ORDERED: MIRTAZAPINE TAB 15 MG TAB PO SCH (21:00)
[2018-07-31] MEDS: HEPARIN SOD 5,000 UNIT/0.5 ML VIAL SQ SCH (21:14)
[2018-07-31] MEDS: METOPROLOL SUCC 25MG EXT REL TAB PO SCH (21:16)
[2018-07-31] MEDS: ALPRAZolam 0.25 MG TABLET PO SCH (21:21)
[2018-08-01] MEDS: HEPARIN SOD 5,000 UNIT/0.5 ML VIAL SQ SCH ×2 (05:32→13:57)
[2018-08-01 05:39] LABS: Hematocrit (blood only) 32.6 % (37-47); Hemoglobin 10.7 g/dL (12.0-16.0); Mean Corpuscular Hgb Conc 32.8 g/dL (32-36); Mean Corpuscular Volume 93.7 fL (80-100); Mean Platelet Volume 10.1 fL (7.4-10.4); Platelet Count 287 K/uL (130-400); RDW Coefficient of Variation 14.8 % (11.5-14.5); RDW Standard Deviation 50.6 fL (36.4-46.3); Red Blood Count 3.48 M/uL (4.2-5.4); White Blood Count 5.51 K/uL (4.8-10.8)
[2018-08-01 06:07] LABS: BUN Creatinine Ratio 31.1 (10-20); Calcium 8.4 mg/dl (8.5-10.1); Creatinine Clr Calc Pharmacy 62.4 ml/min; Est GFR (African American) 98.2; Est GFR (Non-African American) 84.8; Potassium 3.7 mmol/L (3.5-5.1)
[2018-08-01] MEDS: METOPROLOL SUCC 25MG EXT REL TAB PO SCH (07:19)
[2018-08-01] MEDS: ALPRAZolam 0.25 MG TABLET PO SCH (07:22)
--- NOTE | 2018-08-01 10:13 | Infectious Disease Consult ---
Date of Consultation August 01, 2018 Assessment & Plan (1) UTI due to extended-spectrum beta lactamase (ESBL) producing Escherichia coli: 82-year-old female with recurrent urinary tract infections now with recurrent infection with ESBL producing E. coli. Appears to be clinically responding to IV ertapenem. Would recommend 10-day course of ertapenem, then will have patient follow-up in the office to discuss possibility of rotating antibiotics for suppression of recurrent infection. History of Present Illness Reason for Consultation: ESBL UTI Attending Physician: Hamlet Knight MD History of Present Illness 82-year-old female with history of hypertension, mild dementia, with history of recurrent urinary tract infections over the last several years. She recently was diagnosed as having a recurrent E. coli urinary tract infection, and was treated with Omnicef. However developed progressively worsening dysuria along with mild mental status changes, and isolate was found to be ESBL producing and patient was admitted for IV antibiotics. She was started on IV ertapenem, and today is feeling significantly better with decreasing urinary symptoms and improvement in mental status. Remains afebrile, white count is normal. Currently without abdominal or flank pain. Allergies Allergy/AdvReac Type Severity Reaction Status Date / Time Iodinated Contrast- Oral and Allergy Severe Pt unable Unverified 07/31/18 12:10 IV Dye to describe celecoxib Allergy Mild Unknown Verified 07/31/18 12:10 Macrolide Antibiotics Allergy Mild Unknown Verified 07/31/18 12:10 Corticosteroids Allergy Unknown Unknown Verified 07/31/18 12:10 (Glucocorticoids) Sulfa (Sulfonamide Allergy Unknown Unknown Verified 07/31/18 12:10 Antibiotics) dextromethorphan AdvReac Intermediate DIZZY Unverified 07/31/18 12:10 guaifenesin AdvReac Intermediate DIZZY Unverified 07/31/18 12:10 procaterol AdvReac Intermediate Palpitation Unverified 07/31/18 12:10 s yellow dye AdvReac Intermediate DIZZY Unverified 07/31/18 12:10 erythromycin base AdvReac Unknown stomach Verified 07/31/18 12:10 upset Home Medications Home Medications Medication Instructions Recorded Confirmed Type alprazolam 0.25 mg PO BID 03/02/18 07/31/18 History metoprolol succinate 12.5 mg PO BID 03/02/18 07/31/18 History mirtazapine 30 mg PO HS 03/02/18 07/31/18 History sennosides [Senokot] 8.6 mg PO BID PRN 03/02/18 07/31/18 History nitrofurantoin monohyd/m-cryst 100 mg PO BID 07/31/18 07/31/18 History [Macrobid] pumpkin seed extract-soy germ [Azo 1 dose PO UD PRN 07/31/18 07/31/18 History Bladder Control] Patient History Medical History History of hysterectomy (Chronic) LBBB (left bundle branch block) (Chronic) IBS (irritable bowel syndrome) (Chronic) Recurrent UTI (Chronic) Dementia (Chronic) Depression (Chronic) GERD (gastroesophageal reflux disease) (Chronic) Surgical History S/P tonsillectomy and adenoidectomy (Chronic) History of appendectomy (Chronic) H/O arthroscopic knee surgery (Chronic) H/O oophorectomy (Chronic) Family History Father Coronary heart disease Mother Coronary heart disease Social History Preferred Language: French 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: Impaired Beliefs That Will Affect Care: None Current Living Situation: [facility] Current Living Situation Comment: [facility] Other Information That Helps Us Care for You: No Feels Safe at Home: Yes Safety Concerns: Feels Safe At This Time Smoking Status: Never smoker Hx Alcohol Use: No Hx Substance Use: No Review of Systems Review of Systems: All systems reviewed & are unremarkable except as noted in HPI & below Physical Exam Constitutional: WD/WN, vitals as above comfortable; no acute distress Eyes: PERRL, conjunctivae normal, anicteric sclerae ENMT: external ear and nose normal, oropharynx normal Neck: trachea midline, no thyromegaly neck nontender Respiratory: normal respiratory effort, lungs clear to auscultation normal percussion; does not use accessory muscles Cardiovascular: Rate/Rhythm: regular rate and regular rhythm Heart Sounds: normal S1 and normal S2; no gallop, no murmur and no cardiac rub Vessels: normal peripheral pulses; no JVD Gastrointestinal (Abdomen): normal bowel sounds, soft, nontender, no hepatosplenomegaly Musculoskeletal: no cyanosis or clubbing, extremities motor strength 5/5 Spine: thoracic spine normal to inspection and lumbar spine normal to inspection; no cervical spinal tenderness Skin: no rashes, warm and dry normal turgor; no lesions Neurologic: patellar DTR's 2+ bilat, sensation intact no focal motor deficits Psychiatric: A+Ox3, euthymic affect Orientation: cooperative Lymphatic: no cervical or axillary lymphadenopathy no inguinal lymphadenopathy Results & Data Vital Signs (Past 12 Hours) Vital Signs Temp Pulse Resp BP Pulse Ox 08/01/18 08:12 36.6 C 71 16 161/71 H 97 08/01/18 07:20 69 130/79 07/31/18 22:21 36.5 C 72 18 135/68 98 Laboratory Results Short CBC 07/31/18 08/01/18 Range/Units 12:14 05:13 WBC 8.27 5.51 (4.8-10.8) K/uL Hgb 11.4 L 10.7 L (12.0-16.0) g/dL Hct 34.9 L 32.6 L (37-47) % Plt Count 318 287 (130-400) K/uL BMP 07/31/18 08/01/18 12:14 05:13 Sodium 142 141 Potassium 3.9 3.7 Chloride 107 108 H Carbon Dioxide 30 31 BUN 16 18 Creatinine 0.68 0.59 L Glucose 83 82 Calcium 8.9 8.4 L Cardiac Enzymes 07/31/18 Range/Units 12:14 Troponin I < 0.015 (0-0.045) ng/ml Liver Function 07/31/18 Range/Units 12:14 Total Bilirubin 0.3 (0.2-1) mg/dl AST 17 (15-37) U/L ALT 19 (12-78) U/L Alkaline Phosphatase 68 (45-117) U/L Albumin 3.2 L (3.4-5.0) gm/dl Urine 07/31/18 Range/Units 11:55 Urine Color Yellow Urine Appearance Clear (Clear) Urine pH 7.5 (4.5-7.5) Ur Specific [place] 1.011 (1.000-1.030) Urine Protein Negative (Negative) Urine Glucose (UA) Negative (Negative) Diagnostic Findings Result Verified Site Urine Culture Final 05/29/18-1239 Organism 1 Escherichia coli ESBL [place] Count >100,000 CFU/ml Sens Sensitivities to Follow Sensitivity results indicate an organism with an Extended Spectrum Beta Lactamase. This is considered a Multidrug Resistant Organism. Phoned to EDELMIRA Alvarez on 05/29/18 at 1133 by [place] Miranda. Results were verbalized back. ESBL E col RX M.I.C. --- --------- Amikacin S <=16 Ampicillin R >16 Amp/Sul R >16/8 Cefazolin R >16 Cefepime R >16 Cefotaxime R >32 Cefoxitin S <=8 Ceftriaxone R >32 Cefuroxime R >16 Ciprofloxacin R >2 Ertapenem S <=1 Gentamicin S <=4 Imipenem S <=1 Levofloxacin R >4 Nitrofurantoin S <=32 Tobramycin S <=4 Trimeth/Sulfa R >2/38 Pip/Tazo S <=16 S = SENSITIVE I = INTERMEDIATE R = RESISTANT Name: DAVIS TEJEDA : 1935 PAGE 1 Printed: 08/01/18 1013 END OF REPORT
--- NOTE | 2018-08-01 12:36 | Hospitalist Progress Note ---
Date of Service August 01, 2018 Assessment & Plan (1) UTI due to extended-spectrum beta lactamase (ESBL) producing Escherichia coli: Patient is sent from [facility] for evaluation of ESBL producing E. coli urine culture H/O similar urine culture 05/2018 which was treated with Ceftin No signs of sepsis Started on IV ertapenem-- plan for 10 day course as per ID Appreciate ID Input Blood Culture: pending Patient follows with Dr. Torres as outpatient (2) HTN (hypertension): Stable Continue home metoprolol (3) Dementia: (4) Depression: Continue Remeron and alprazolam (5) DVT prophylaxis: SQ heparin Disposition: Plan to discharge home today Subjective Patient is seen and examined at bedside Reports feeling tired and has minimal dysuria Denies hematuria, abd pain Also denies any chets pain, SOB, dizziness Offers no other complaints Family at bedside Discussed with ID today Review of Systems Review of Systems: All systems reviewed & are unremarkable except as noted in HPI & below Physical Exam Physical Exam: Physical Exam: Vitals signs as noted above General Appearance:Moderately built and nourished, no apparent distress Head: normocephalic, Atraumatic Eyes: normal inspection, EOMI Neck: supple, Trachea midline Respiratory/Chest: Normal breath sounds, CTA Cardiovascular: S1, S2, No murmur Abdomen/GI:Soft, Bowel sounds present Extremities/Musculoskelatal:normal inspection, no edema Neurologic/Psych:AAOX3, grossly no focal neurological deficits Skin: normal color, warm Results & Data Vital Signs (Past 12 Hours) Vital Signs Temp Pulse Resp BP Pulse Ox 08/01/18 08:12 36.6 C 71 16 161/71 H 97 08/01/18 07:20 69 130/79 Laboratory Results Short CBC 08/01/18 Range/Units 05:13 WBC 5.51 (4.8-10.8) K/uL Hgb 10.7 L (12.0-16.0) g/dL Hct 32.6 L (37-47) % Plt Count 287 (130-400) K/uL BMP 08/01/18 05:13 Sodium 141 Potassium 3.7 Chloride 108 H Carbon Dioxide 31 BUN 18 Creatinine 0.59 L Glucose 82 Calcium 8.4 L
--- NOTE | 2018-08-01 13:01 | Discharge Summary ---
Date of Service August 01, 2018 Admission HPI Per Admitting Provider 82-year-old female who was sent to the ED from [facility] for evaluation of resistant UTI. Patient has underlying dementia so therefore history is somewhat limited from her. Patient's daughters at the bedside who provides some information. They report that the patient chronically complains of urinary burning however it seems as though her complaints of increased over the past couple of weeks. Outpatient urine sample was obtained with culture showing a resistant/ESBL producing E. coli requiring IV antibiotics. Patient also reports lower abdominal/bladder pain. She reports severe burning and pain with urinatio n. She has felt generally weak. No fevers or chills. She denies nausea and vomiting. She reports lightheadedness and dizziness with standing however denies any syncopal events. No chest pain or shortness of breath. In the ED, patient is hemodynamically stable. She was given a dose of IV ertapenem according to urine culture sensitivities. Admission Exam Per Admitting Provider Physical Exam Constitutional: WD/WN, vitals as above Eyes: PERRL, conjunctivae normal, anicteric sclerae ENMT: external ear and nose normal, oropharynx normal Respiratory: normal respiratory effort, lungs clear to auscultation Cardiovascular: Rate/Rhythm: regular rate and regular rhythm Vessels: normal peripheral pulses Extremities: no edema Gastrointestinal (Abdomen): Inspection/Auscultation: normal bowel sounds; abdomen not distended Percussion/Palpation: + abdomen tender (Mild suprapubic) and abdomen soft; no hepatosplenomegaly Musculoskeletal: no cyanosis or clubbing, extremities motor strength 5/5 Skin: no rashes, warm and dry Neurologic: PERRL, EOMI, accommodation nl, no face palsy, no dysarthria Psychiatric: Orientation: alert, oriented to person and oriented to place; + not oriented to time Insight: + limited insight Principal Diagnosis ESBL E. Coli UTI Discharge Data Allergies Allergy/AdvReac Type Severity Reaction Status Date / Time Iodinated Contrast- Oral and Allergy Severe Pt unable Unverified 07/31/18 12:10 IV Dye to describe celecoxib Allergy Mild Unknown Verified 07/31/18 12:10 Macrolide Antibiotics Allergy Mild Unknown Verified 07/31/18 12:10 Corticosteroids Allergy Unknown Unknown Verified 07/31/18 12:10 (Glucocorticoids) Sulfa (Sulfonamide Allergy Unknown Unknown Verified 07/31/18 12:10 Antibiotics) dextromethorphan AdvReac Intermediate DIZZY Unverified 07/31/18 12:10 guaifenesin AdvReac Intermediate DIZZY Unverified 07/31/18 12:10 procaterol AdvReac Intermediate Palpitation Unverified 07/31/18 12:10 s yellow dye AdvReac Intermediate DIZZY Unverified 07/31/18 12:10 erythromycin base AdvReac Unknown stomach Verified 07/31/18 12:[address] Steiner, infectious disease Procedures Performed CT head: No acute intracranial abnormality. Age-related change. CXR: Negative chest. Mild emphysematous change. Hospital Course (1) UTI due to extended-spectrum beta lactamase (ESBL) producing Escherichia coli: -Admitted to [facility] -Patient sent from [facility] for evaluation of ESBL producing E. coli urine culture -Patient with history of similar urine culture 05/2018 which was treated with Ceftin -Patient remained hemodynamically stable without signs of sepsis -Received IV ertapenem in the ED according to urine culture which was continued -Evaluated by Dr. Steiner who recommends a total of 10 days of IV Ertapenem and follow up with him for possible initiation of chronic suppressive antibiotics -Midline placed and patient will receive IV Ertapenem at [facility] -PT order written for patient to receive at [facility] (2) HTN (hypertension): -BP remained controlled, Continue metoprolol (3) Dementia: (4) Depression: -Continue Remeron and alprazolam Total Time Total Time Spent Total Time Spent (In Minutes): 35 Discharge Plan Discharge Items Patient Disposition: Personal Residential Reason For Visit: UTI Discharge Diagnosis: ESBL UTI Discharge Goals: Decrease discomfort, Improve disease control, Improve function and Therapeutic intervention Activity: Resume your previous activity Activity Comment: as per PT recommendations Non-emergency contact: Primary Care Provider Call non-emergency contact if: you have any medication questions, your symptoms worsen, your pain is not controlled and you have a fever Follow-up/Referrals: Hernando Steiner MD [Physician] - 08/13/18 2:15 pm ([address]) Hayder Monroy MD [Physician] - 08/05/18 11:45 am Janette Torres MD [Family Provider] - 08/14/18 8:15 am Diet: Regular Addtl Provider Instructions: You were admitted to the hospital for a UTI that requires IV antibiotics for treatment. You were seen by infectious disease physician who recommends a 10 day course of IV antibiotics. It has been arranged for you to receive this medication at the Medical Treatment Unit at [facility]. If you develop worsening urinary symptoms or a fever, report this to your PCP or return to the ED. PT has been ordered for you to receive at [facility]. Follow up: Dr. Steiner on 08/13/18 at 2:15 [address], [address] Dr. Monroy (Dr. Limon did not have any availability) on 08/05/18 at 11:45 Dr. Torres on 08/14/18 at 8:15 Prescriptions: New ertapenem 1 gram recon soln 1 gm IV DAILY 8 Days RF: 0 Continued sennosides [Senokot] 8.6 mg Tablet 8.6 mg PO BID PRN (Reason: Constipation) RF: 0 alprazolam 0.25 mg tablet 0.25 mg PO BID RF: 0 mirtazapine 15 mg tablet 30 mg PO HS RF: 0 metoprolol succinate 25 mg tablet extended release 24 hr 12.5 mg PO BID RF: 0 Azo Bladder Control 300 mg Capsule 1 dose PO UD PRN (Reason: NEEDED) RF: 0 Discontinued nitrofurantoin monohyd/m-cryst [Macrobid] 100 mg Capsule 100 mg PO BID RF: 0 Stand-Alone Forms: [facility] Discharge Orders: Discharge Order (Routine); Ordered 08/01/18 Ordered By: Aspen Perez Admission Data Admit Date/Time: 07/31/18 14:35 Attending Provider: Hamlet Knight Admit Provider: Laurence Garrido Primary Care Provider: Alonzo Limon Other Providers: Laurence Garrido ; Janette Smith Service: Medical Other Interventions: Discharge Summary Assessment (RN) Last Done: 08/01/18 14:06 Pending Studies at Discharge: Yes Studies:: Blood Cultures DC Date/Time DO NOT enter until pt leaves facility: 08/01/18 15:07
[2018-08-01] MEDS ORDERED: ERTAPENEM SODIUM 1,000 MG in SODIUM CHLORIDE 0.9% 50 ML IV SCH (14:00)
--- OUTSIDE RECORDS SUMMARY | 2018-08-05 20:27 | External Medical Summary | Continuity of Care Document ---
:1935 Author Name Aaliyah Campoverde Address Unavailable Unavailable , Care Team Providers Name Role Phone Fran Steiner M.D. 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) Vertigo (780.4) (R42) Nasal congestion (478.19) (R09.81) Arthritis (716.90) (M19.90) Hypertension (401.9) (I10) Urinary tract infection (599.0) (N39.0) Urinary urgency (788.63) (R39.15) Urge incontinence of urine (788.31) (N39.41) Left bundle-branch block (426.3) (I44.7) Allergies and Adverse Reactions albuterol (Allergy) CeleBREX CAPS (Allergy) Ciprofloxacin HCl TABS (Allergy) Contrast Media Ready-Box MISC (Allergy) Cortisone Acetate TABS (Allergy) Erythromycin Base TABS (Allergy) Flonase (Allergy) Sulfa Drugs (Allergy) Medications Azelastine HCl - 0.1 % Nasal Solution; i nstill 2 sprays into each nostril two to three times a day Nirali Tai Start: 05-Jan-2015 Quantity: 3 30 ML Bottle Refills: 6 Boost LIQD Refills: 0 Colace 100 MG Oral Capsule Refills: 0 Toprol XL 25 MG Oral Tablet Extended Release 24 Hour Refills: 0 Xanax TABS Refills: 0 Procedures History of Tonsillectomy With Adenoidectomy Status: Completed History of Ovarian Cystectomy Status: Co mpleted History of Shoulder Surgery Status: Comp leted History of Hysterectomy Status: Complete d History of Arthroscopy Knee Status: Comp leted Immunizations Immunizations not documented Social History - Smoking Status Never smoker Plan of Treatment Planned Encounters Appointment; Hernando Steiner M.D. Start: 13-Aug-2018 14:15 Reques t Planned Observations Planned Goals not documented Results CBC No Diff (Pending) Laboratory: [facility] [address] [facility] [address] tel: 01-Aug-2018 5:13 WBC 5.51 K/uL Range: 4.8-10.8 K/u L RBC 3.48 {M/uL} (below low Range: 4.2-5 .4 M/uL threshold) HEMOGLOBIN 10.7 g/dL (below low Range: 12.0-16.0 g/dL threshold) HEMATOCRIT 32.6 % (below low Range: 37- 47 % threshold) MCV 93.7 fL Range: 80-100 fL MCH 30.7 pg Range: 25-34 pg MEAN CORPUSCULAR HGB CONC 32.8 Range: 3 2-36 g/dL g/dL RED CELL DISTRIBUTION WIDTH SD Range: 3 6.4-46.3 fL 50.6 fL (above high threshold) RED CELL DISTRIBUTION WIDTH CV Range: 1 1.5-14.5 % 14.8 % (above high threshold) PLATELET COUNT 287 K/uL Range: 130-400 K/uL MEAN PLATELET VOLUME 10.1 fL Range: 7.4 -10.4 fL Basic Metabolic Panel Laboratory: [facility] [address] ([address]) [address] [facility] [address] tel: 01-Aug-2018 5:13 SODIUM 141 mmol/L Range: 136-145 mmol /L POTASSIUM 3.7 mmol/L Range: 3.5-5.1 mmo l/L CHLORIDE 108 mmol/L (above high Range: 98-107 mmol/L threshold) CARBON DIOXIDE 31 mmol/L Range: 21-32 m mol/L ANION GAP 2.0 (below low Range: 3-11 threshold) BLOOD UREA NITROGEN 18 mg/dl Range: 7-1 8 mg/dl CREATININE 0.59 mg/dl (below low Range: 0.6-1.2 mg/dl threshold) Estimated Creatinine Clearance Range: m l/min 62.4 ml/min Comments: Est. Creat inine Clearance (Mod Cockcroft-Gault) for pharmacydosing purposes. Estimated GFR () Comment s: Units: ml/min per 98.2 1.73 meters squaredT he estimated GFR (CKD-E PI equation) has not be en validatedfor inpatie nt settings and may not be an accurate reflectiono f renal function in critical ly ill patients or those withrapidly changing renal function (e.g. GERMAN). Estimated GFR (Non- Comments: Uni ts: ml/min per [place]) 84.8 1.73 meters squaredT he estimated GFR (CKD-E PI equation) has not be en validatedfor inpatie nt settings and may not be an accurate reflectiono f renal function in critical ly ill patients or those withrapidly changing renal function (e.g. GERMAN). BUN/CREATININE RATIO 31.1 (above Range: 10-20 high threshold) GLUCOSE 82 mg/dl Range: 70-99 mg/dl CALCIUM 8.4 mg/dl (below low Range: 8.5 -10.1 mg/dl threshold) Encounters Appointment; Hernando Steiner M.D. 13-Aug-2018 14:15 Encounter Diagnosis: Problem not documented
== END 2018-08-01 15:07 | disposition home or self-care (01) ==
LOC: ED 11:17 → 4E 14:35 → INTOOBSV 14:35 → 4E 15:25

== ENCOUNTER 2018-08-06 12:36 | Inpatient (IN) ==
[2018-08-06] MEDS ORDERED: SODIUM CHLORIDE 0.9% 1000ML 1,000 ML IV SCH (14:00)
--- NOTE | 2018-08-06 14:12 | XRay Report ---
XR chest 1V portable HISTORY: 82 years-old Female weakness acute weakness COMPARISON: Chest radiograph 03/02/2018 TECHNIQUE: Portable AP view of the chest FINDINGS: Cardiac silhouette is mildly enlarged, unchanged. Calcification of the thoracic aortic arch. Suggeste d emphysema with chronic interstitial coarsening. No pneumothorax, pleural effusion, focal airspace c onsolidation or overt pulmonary edema. Degenerative changes of the shoulders and spine. IMPRESSION: No acute process. The above report was generated using voice recognition software. It may contain grammatical, syntax o r spelling errors. Electronically signed by: Parvez Rhoades M.D. 08/06/2018 2:11 PM
[2018-08-06 14:46] LABS: Basophils # (auto) 0.02 K/uL (0-0.2); Basophils % (auto) 0.2 %; Eosinophils # (auto) 0.02 K/uL (0-0.5); Eosinophils % (auto) 0.2 %; Hematocrit (blood only) 33.4 % (37-47); Hemoglobin 11.5 g/dL (12.0-16.0); Immature Granulocytes # (auto) 0.02 K/uL (0.00-0.02); Immature Granulocytes % (auto) 0.2 %; Lymphocytes # (auto) 1.46 K/uL (1.2-3.4); Lymphocytes % (auto) 14.4 %; Mean Corpuscular Hgb Conc 34.4 g/dL (32-36); Mean Corpuscular Volume 92.5 fL (80-100); Monocytes # (auto) 0.83 K/uL (0.11-0.59); Monocytes % (auto) 8.2 %; Neutrophils # (auto) 7.77 K/uL (1.4-6.5); Neutrophils % (auto) 76.8 %; Platelet Count 223 K/uL (130-400); RDW Coefficient of Variation 14.5 % (11.5-14.5); RDW Standard Deviation 49.3 fL (36.4-46.3); Red Blood Count 3.61 M/uL (4.2-5.4); White Blood Count 10.12 K/uL (4.8-10.8)
[2018-08-06 15:06] LABS: Appearance Urine Clear (Clear); Bilirubin Urine Negative (Negative); Blood Urine Trace (Negative); Color Urine Yellow; Glucose Urine UA Negative (Negative); Ketones Urine Negative (Negative); Leukocyte Esterase Urine Negative (Negative); Nitrite Urine Negative (Negative); Protein Urine Negative (Negative); Urobilinogen Urine Negative (Negative); pH Urine 6.5 (4.5-7.5)
[2018-08-06 15:07] LABS: Albumin Level 3.2 gm/dl (3.4-5.0); BUN Creatinine Ratio 37.9 (10-20); Calcium 8.7 mg/dl (8.5-10.1); Creatinine Clr Calc Pharmacy 59.4 ml/min; Est GFR (African American) 96.6; Est GFR (Non-African American) 83.4; Magnesium 2.4 mg/dl (1.8-2.4); Potassium 3.6 mmol/L (3.5-5.1)
[2018-08-06 15:18] LABS: Albumin Globulin Ratio 0.8 (0.9-2); Bilirubin,Total 0.5 mg/dl (0.2-1); Total Protein 7.2 gm/dl (6.4-8.2)
--- NOTE | 2018-08-06 15:34 | CT Scan Report ---
CT head/brain wo con CLINICAL HISTORY: 82 years-old Female with AMS. Acutely altered mental status TECHNIQUE: Multiple axial CT images of the head were obtained without contrast. A dose lowering tech nique was utilized adhering to the principles of ALARA. CT DOSE: 720.95 mGycm COMPARISON: CT head 03/02/2018. FINDINGS: No acute intracranial hemorrhage, midline shift, intracranial mass, hydrocephalus, territorial ischem ia or abnormal extra-axial collection. Age-related involutional changes. Minimal white matter hypoden sities redemonstrated suggestive of chronic microvascular ischemic disease. Cerebral vascular calcifi cations are noted. The calvarium is intact. Mild mucosal thickening about the ethmoid air cells. Mastoid air cells and middle ear cavities are clear. Soft tissues and orbits are unremarkable. Prior bilateral cataract rep air. IMPRESSION: No acute intracranial abnormality. The above report was generated using voice recognition software. It may contain grammatical, syntax o r spelling errors. Electronically signed by: Parvez Rhoades M.D. 08/06/2018 3:32 PM
[2018-08-06 16:09] LABS: Bacteria Urine Negative (Negative); Epithelial Cell Urine 0-5 /lpf (0-5); RBC Urine 0-4 /hpf (0-4); WBC Urine 0-5 /hpf (0-5)
--- NOTE | 2018-08-06 17:31 | History & Physical Report ---
Date of Service August 06, 2018 Assessment & Plan (1) Metabolic encephalopathy: (2) UTI due to extended-spectrum beta lactamase (ESBL) producing Escherichia coli: This is an 82yo F with a PMH of ESBL UTI, HTN, depression, dementia and LBBB who presents from [facility] with frequent falls and change to mental status over the past few days. -Fall yesterday, ongoing agitation and hallucinations over past few days -Has dementia at baseline but more agitated and confused than usual -CT head negative for acute changes -Ddx: Side effect of Ertapenem vs ongoing UTI -Daughter discussed with Dr. Steiner yesterday, who recommended holding Ertapenem and giving Fosfomycin x 1 -In touch with [facility] to clarify whether or not dose has been given yet -ID consulted. Will follow cultures -IV fluids (3) Generalized weakness: Weakness in setting of infection -PT/OT evaluation, conditioning for possible SNF placement (4) Diarrhea: Endorses a few episodes yesterday and today -C diff toxin ordered (5) HTN (hypertension): Normotensive. Continue Toprol BID with hold parameters (6) Depression: Continue Remeron HS DVT Ppx: SQ heparin Code status: DNR per discussion with daughter/POA, patient PCP: [facility] Dispo: Admitted to med/surg. Discharge planning ordered. Patient seen in collaboration with Dr. Garrido. Please see addendum. History of Present Illness Chief Complaint: frequent falls, weakness, diarrhea Primary Care Provider: Alonzo Limon, DO This is an 82yo F with a PMH of ESBL UTI, HTN, depression, dementia and LBBB who presents from [facility] with frequent falls and change to mental status over the past few days. Was diagnosed with a UTI 2 weeks ago and culture grew ESBL E Coli. He was first treated with Ceftin and then transition to IV ertapenem last week. Was discharged back to facility with midline in place and has received 6 doses of antibiotic. Had a fall yesterday and was seen in the ED before being discharged back to facility. Has become increasingly agitated with hallucinations and bad dreams, per daughter. Also with continued generalized weakness, urinary incontinence and decreased appetite. Daughter spoke with Dr. Steiner of ID, who recommended that patient come to ED for further evaluation. Also recommended holding IV ertapenem and transitioning to Fosfomycin. It is not clear if patient has received dose yet or not. Will clarify with staff at [facility] and consult ID. Patient feels lightheaded and generally weak. Still experiencing dysuria and some incontinence. Has had a few episodes of diarrhea since yesterday. Denies any fever, chills, headache, chest pain, shortness of breath, nausea, vomiting, abdominal pain or constipation. Daughter/POA is interested in patient transitioning to SNF -- has noted significant decrease in patient's functional capacity in the past few weeks. Allergies Allergy/AdvReac Type Severity Reaction Status Date / Time Iodinated Contrast- Oral and Allergy Severe Pt unable Verified 08/06/18 13:07 IV Dye to describe celecoxib Allergy Mild Unknown Verified 08/06/18 13:07 Macrolide Antibiotics Allergy Mild Unknown Verified 08/06/18 13:07 Corticosteroids Allergy Unknown Unknown Verified 08/06/18 13:07 (Glucocorticoids) Sulfa (Sulfonamide Allergy Unknown Unknown Verified 08/06/18 13:07 Antibiotics) dextromethorphan AdvReac Intermediate DIZZY Verified 08/06/18 13:07 guaifenesin AdvReac Intermediate DIZZY Verified 08/06/18 13:07 procaterol AdvReac Intermediate Palpitation Verified 08/06/18 13:07 s yellow dye AdvReac Intermediate DIZZY Verified 08/06/18 13:07 erythromycin base AdvReac Unknown stomach Verified 08/06/18 13:07 upset Home Medications Home Medications Medication Instructions Recorded Confirmed Type alprazolam 0.125 mg PO BID 03/02/18 08/06/18 History metoprolol succinate 12.5 mg PO BID 03/02/18 08/06/18 History sennosides [Senokot] 8.6 mg PO DAILY PRN 03/02/18 08/06/18 History Azo Bladder Control 1 dose PO UD PRN 07/31/18 08/06/18 History acetaminophen 325 mg PO Q6H PRN MDD 3gm/24hr 08/05/18 08/06/18 History docusate sodium [COLACE Clear] 50 mg PO DAILY PRN 08/05/18 08/06/18 History loperamide [Imodium A-D] 2 mg PO QID PRN 08/05/18 08/06/18 History mirtazapine 30 mg PO HS 08/05/18 08/06/18 History ertapenem 1 g IV UD 08/06/18 08/06/18 History Past Med/Surg History Medical History History of hysterectomy (Chronic) LBBB (left bundle branch block) (Chronic) IBS (irritable bowel syndrome) (Chronic) Recurrent UTI (Chronic) Dementia (Chronic) Depression (Chronic) GERD (gastroesophageal reflux disease) (Chronic) Surgical History S/P tonsillectomy and adenoidectomy (Chronic) History of appendectomy (Chronic) H/O arthroscopic knee surgery (Chronic) H/O oophorectomy (Chronic) Family History Father Coronary heart disease Mother Coronary heart disease Social History Preferred Language: German 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: Effective Code Enforcement Supervisor Required: No Beliefs That Will Affect Care: None Current Living Situation: Personal Care Facility Current Living Situation Comment: [facility] Other Information That Helps Us Care for You: Yes (needs [place] [facility]) Feels Safe at Home: Yes Safety Concerns: Feels Safe At This Time Smoking Status: Unknown if ever smoked Hx Alcohol Use: No Hx Substance Use: No Review of Systems Review of Systems: At least ten systems reviewed and negative except as noted in the HPI. Physical Exam Physical Exam: General Appearance: WD/WN, no apparent distress, elderly, frail, thin Head: normocephalic, atraumatic Eyes: normal inspection, PERRL, EOMI ENT: hearing grossly normal, pharynx normal (moist mucous membranes) Neck: supple, no JVD, no adenopathy Respiratory/Chest: lungs clear to auscultation. No wheezes, rales or rhonci. No respiratory distress or accessory muscle use Cardiovascular: regular rate, rhythm, no murmur, normal peripheral pulses Abdomen/GI: normal bowel sounds, soft, non-tender to palpation Extremities/Musculoskelatal: normal inspection, no calf tenderness, normal capillary refill, no pedal edema Neurologic/Psych: alert, depressed mood, oriented to person & place but not time. Able to follow commands. Skin: normal color, warm/dry Results & Data Vital Signs (Past 12 Hours) Vital Signs Temp Pulse Pulse Resp BP BP Pulse Ox 08/06/18 17:23 86 20 131/73 97 08/06/18 16:47 92 H 16 131/62 97 08/06/18 15:52 93 H 19 129/59 L 97 08/06/18 13:53 97 08/06/18 13:51 96 08/06/18 13:50 103 H 20 125/69 96 08/06/18 13:00 36.9 C 92 H 20 134/66 98 Laboratory Results Short CBC 08/06/18 Range/Units 14:18 WBC 10.12 (4.8-10.8) K/uL Hgb 11.5 L (12.0-16.0) g/dL Hct 33.4 L (37-47) % Plt Count 223 (130-400) K/uL BMP 08/06/18 14:18 Sodium 139 Potassium 3.6 Chloride 106 Carbon Dioxide 28 BUN 23 H Creatinine 0.62 Glucose 95 Calcium 8.7 Cardiac Enzymes 08/06/18 Range/Units 14:18 Troponin I 0.035 (0-0.045) ng/ml Liver Function 08/06/18 Range/Units 14:18 Total Bilirubin 0.5 (0.2-1) mg/dl AST 21 (15-37) U/L ALT 20 (12-78) U/L Alkaline Phosphatase 74 (45-117) U/L Albumin 3.2 L (3.4-5.0) gm/dl Urine 08/06/18 Range/Units 14:45 Urine Color Yellow Urine Appearance Clear (Clear) Urine pH 6.5 (4.5-7.5) Ur Specific [place] 1.010 (1.000-1.030) Urine Protein Negative (Negative) Urine Glucose (UA) Negative (Negative) Diagnostic Findings CT head: IMPRESSION: No acute intracranial abnormality CXR: IMPRESSION: No acute process. ECG Rhythm: sinus tachycardia Supervising Physician Co-Signing Physician Notes I have seen and examined the patient and have discussed the case with the provider above. I agree with the assessment and plan as stated with the following exceptions. Ms. Gilman appears worn out. She has been having hallucinations and delirium per family and staff at care home since starting Ertpenem. She also endorses diarrhea. She has a known h/o multiple sensitivities to drugs in the past. ID was engaged as outpatient and ordered fosfomycin, which she didn't receive yet. This was ordered for tonight. The patient was somewhat apprehensive about taking yet another new drug, and we discussed that she could wait and discuss things further with DR. Steiner tomorrow. However, after considering this with her daughter she decided to go ahead with the fosfomycin now. UA from the ER yesterday appears clear of infection. Original course of ertapenem was for 10 days and she completed 6. Defer further antibiotic management to ID. Of note vitals are stable and she is afebrile and not septic. She has a slightly flushed face but no overt rash and skin is warm and dry. She is mentating at baseline and is articulating how she feels very clearly, with some of the facts mixed up about the last few days. She otherwise denies any specific symptoms aside from weakness and malaise. She hasn't eaten well and doesn't hydrate with water, although this is nothing new for her. Her midline site on the LUE looks clean with no erythema. Suspect symptoms related to adverse side effect of ertapenem which has been stopped with last dose given on 08/05. I spoke with daughter at bedside, who is mPOA, and she is fine with the current plan, also. Hema, DO
[2018-08-06] MEDS ORDERED: ONDANSETRON INJ 2 MG/ML 2 ML VIAL IV PRN (19:14)
[2018-08-06] MEDS ORDERED: ACETAMINOPHEN 325 MG TAB PO PRN (19:14)
--- NOTE | 2018-08-06 20:39 | Emergency Department Note ---
Entered by Manny Enamorado acting as a scribe for Lauryn Colbert MD History of Present Illness General Chief complaint: Weakness Stated complaint: WEAKNESS Source: patient and family Limitations: other (dementia) History of Present Illness Onset (ago): day(s) (past several) Location: head (global ) Pain Consistency: + other (worsening) Quality: + other (altered mental status) Associated symptoms: + weakness History is limited due to dementia. The patient is an 82 year old female from [facility] who presents to the Emergency Room with worsening altered mental status and weakness. The family at bedside reports that this is the patient�s third visit to the ER in the past several days. The first visit she was admitted for E. coli and UTI, and she was placed on Omnicef, switched to Ertapenem of which she received the full course, and then placed on another oral antibiotic. The patient was here yesterday after falling with head trauma. Today the family was called by [facility] and told that she has been hallucinating and weak with an unsteady gait, and this morning she developed diarrhea. The patient was referred to the ER after calling her PCP Dr. Steiner. The patient reports current abdominal pain. Family notes that she has a history of IBS. Home Medications Home Medications Medication Instructions Recorded Confirmed Type alprazolam 0.125 mg PO BID 03/02/18 08/06/18 History metoprolol succinate 12.5 mg PO BID 03/02/18 08/06/18 History sennosides [Senokot] 8.6 mg PO DAILY PRN 03/02/18 08/06/18 History Azo Bladder Control 1 dose PO UD PRN 07/31/18 08/06/18 History acetaminophen 325 mg PO Q6H PRN MDD 3gm/24hr 08/05/18 08/06/18 History docusate sodium [COLACE Clear] 50 mg PO DAILY PRN 08/05/18 08/06/18 History loperamide [Imodium A-D] 2 mg PO QID PRN 08/05/18 08/06/18 History mirtazapine 30 mg PO HS 08/05/18 08/06/18 History ertapenem 1 g IV UD 08/06/18 08/06/18 History Allergies Allergy/AdvReac Type Severity Reaction Status Date / Time Iodinated Contrast- Oral and Allergy Severe Pt unable Verified 08/06/18 13:07 IV Dye to describe celecoxib Allergy Mild Unknown Verified 08/06/18 13:07 Macrolide Antibiotics Allergy Mild Unknown Verified 08/06/18 13:07 Corticosteroids Allergy Unknown Unknown Verified 08/06/18 13:07 (Glucocorticoids) Sulfa (Sulfonamide Allergy Unknown Unknown Verified 08/06/18 13:07 Antibiotics) dextromethorphan AdvReac Intermediate DIZZY Verified 08/06/18 13:07 guaifenesin AdvReac Intermediate DIZZY Verified 08/06/18 13:07 procaterol AdvReac Intermediate Palpitation Verified 08/06/18 13:07 s yellow dye AdvReac Intermediate DIZZY Verified 08/06/18 13:07 erythromycin base AdvReac Unknown stomach Verified 08/06/18 13:07 upset Past Med/Surg History Medical History History of hysterectomy (Chronic) LBBB (left bundle branch block) (Chronic) IBS (irritable bowel syndrome) (Chronic) Recurrent UTI (Chronic) Dementia (Chronic) Depression (Chronic) GERD (gastroesophageal reflux disease) (Chronic) Surgical History S/P tonsillectomy and adenoidectomy (Chronic) History of appendectomy (Chronic) H/O arthroscopic knee surgery (Chronic) H/O oophorectomy (Chronic) Family History Father Coronary heart disease Mother Coronary heart disease Social History Preferred Language: German 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: 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[employer] Required: No Beliefs That Will Affect Care: None Current Living Situation: Personal Care Facility Current Living Situation Comment: [facility] Other Information That Helps Us Care for You: Yes (needs snf) Feels Safe at Home: Yes Safety Concerns: Feels Safe At This Time Smoking Status: Unknown if ever smoked Hx Alcohol Use: No Hx Substance Use: No Review of Systems Unobtainable due to cognitive status (dementia) Physical Exam Vital Signs Vital Signs - 24 hr 08/07/18 21:48 08/08/18 11:26 08/08/18 14:52 Temperature 36.3 C L 36.8 C 36.6 C Temperature Source Axillary Axillary Oral Pulse Rate [Finger] 73 67 Pulse Rate [Left Foot] 95 H Pulse Rhythm [Finger] Regular Pulse Strength [Finger] Normal Respiratory Rate 24 20 Respiratory Depth Normal Blood Pressure [Left Arm] 131/56 L 107/64 124/72 Blood Pressure Mean [Left Arm] 81 78 89 Blood Pressure Position [Left Arm] Lying Lying Lying Pulse Oximetry 95 95 96 Oxygen Delivery Method Room Air Room Air Room Air Vital signs reviewed. General: Elderly-appearing female, in no significant distress. HEENT: No scleral icterus, PERRLA, neck supple. Atraumatic. Cardiovascular: Regular rate and rhythm, no extra sounds. Pulmonary: Clear to auscultation bilaterally, normal work of breathing. Abdomen: Soft, nontender, nondistended, positive bowel sounds. Musculoskeletal: Atraumatic, no peripheral edema. Neurologic: Awake, alert, unable to answer questions appropriately, follows commands, states she is 72 years old. Full strength in all 4 extremities. Cranial nerves 2 through 12 grossly intact. Skin: Warm, dry, no rash Course 1350: The patient was evaluated in room C12B. A complete history and physical examination were performed. 1625: I consulted Kristie Montes PA-C: [facility] Hospitalist with Dr. Garrido. The patient will be reevaluated for hospitalization. 1638: I updated the patient and her family on the current plan. Administered Medications Alprazolam (Xanax) 0.125 mg PO BID [facility] Stop: 09/05/18 20:59 Last Admin: 08/08/18 09:11 Dose: 0.125 mg Documented by: [id number] Admin: 08/07/18 21:43 Dose: 0.125 mg Documented by: [id number] Admin: 08/07/18 08:42 Dose: 0.125 mg Documented by: [id number] Admin: 08/06/18 21:14 Dose: 0.125 mg Documented by: [id number] Heparin Sodium (Beef Lung) (Heparin Sod 10 Unit/Ml Flush) 5 ml FLUSH PRN PRN PRN Reason: Flush Stop: 09/05/18 23:24 Last Admin: 08/08/18 10:44 Dose: 5 ml Documented by: [id number] Admin: 08/07/18 11:52 Dose: 5 ml Documented by: [id number] Admin: 08/07/18 08:55 Dose: 5 ml Documented by: [id number] Admin: 08/07/18 06:21 Dose: 5 ml Documented by: [id number] Heparin Sodium (Porcine) (Heparin Sodium (Porcine)) 5,000 units SQ Q12 MARIAA Stop: 09/05/18 20:59 Last Admin: 08/08/18 09:12 Dose: 5,000 units Documented by: [id number] Cosigned by: [id number] Admin: 08/07/18 21:43 Dose: 5,000 units Documented by: [id number] Cosigned by: [id number] Admin: 08/07/18 08:45 Dose: Not Given Documented by: [id number] Admin: 08/06/18 21:16 Dose: 5,000 units Documented by: [id number] Cosigned by: [id number] Metoprolol Succinate (Toprol Xl) 12.5 mg PO BID MARIAA Stop: 09/05/18 20:59 Last Admin: 08/08/18 09:11 Dose: 12.5 mg Documented by: [id number] Admin: 08/07/18 21:45 Dose: 12.5 mg Documented by: [id number] Admin: 08/07/18 08:43 Dose: 12.5 mg Documented by: [id number] Admin: 08/06/18 21:16 Dose: 12.5 mg Documented by: [id number] Mirtazapine (Remeron) 30 mg PO HS MARIAA Stop: 09/05/18 20:59 Last Admin: 08/07/18 21:43 Dose: 30 mg Documented by: [id number] Admin: 08/06/18 21:15 Dose: 30 mg Documented by: [id number] Discontinued Medications Diphenhydramine HCl (Benadryl) Confirm Administered Dose 50 mg .ROUTE .STK-MED ONE Stop: 08/07/18 11:50 Last Admin: 08/07/18 11:51 Dose: 12.5 mg Documented by: [id number] Fosfomycin Tromethamine (Monurol) 3 gm PO TODAY@2100 MARIAA Stop: 08/06/18 21:01 Last Admin: 08/06/18 21:14 Dose: 3 gm Documented by: [id number] Sodium Chloride (Nss 1000ml) 1,000 mls @ 125 mls/hr IV .Q8H MARIAA Stop: 08/06/18 21:59 Last Infusion: 08/06/18 21:57 Dose: 0 mls/hr Documented by: [id number] Admin: 08/06/18 15:51 Dose: 125 mls/hr Documented by: [id number] Lorazepam (Ativan) 0.5 mg in 1 mls @ 1 mls/min IV TODAY@0900 MARIAA Stop: 08/07/18 10:30 Last Admin: 08/07/18 08:54 Dose: Not Given Documented by: [id number] Lorazepam (Ativan) Confirm Administered Dose 2 mg .ROUTE .STK-MED ONE Stop: 08/07/18 08:52 Last Admin: 08/07/18 08:54 Dose: 0.5 mg Documented by: [id number] Potassium Chloride (Klor-Con M20) 40 meq PO NOW STA Stop: 08/07/18 09:13 Last Admin: 08/07/18 10:02 Dose: 40 meq Documented by: [id number] Medical Decision Making Differential Diagnosis Differential diagnosis includes: metabolic, infection, hypoglycemia, electrolyte abnormalities, cardiac sources, intracerebral event, toxicologic, neurologic, as well as others were entertained. Medical Records Attestation: I reviewed the patient's medical records. Home Medications Current Medication List: was personally reviewed by me Laboratory Data Attestation: I reviewed the patient's lab results. Result diagrams: 08/08/18 08:13 08/08/18 08:13 Lab Results 08/06/18 08/06/18 08/06/18 Range/Units 14:18 14:18 14:18 WBC 10.12 (4.8-10.8) K/uL RBC 3.61 L (4.2-5.4) M/uL Hgb 11.5 L (12.0-16.0) g/dL Hct 33.4 L (37-47) % MCV 92.5 (80-100) fL MCH 31.9 (25-34) pg MCHC 34.4 (32-36) g/dL RDW Std Deviation 49.3 H (36.4-46.3) fL RDW Coeff of Bull 14.5 (11.5-14.5) % Plt Count 223 (130-400) K/uL MPV 10.0 (7.4-10.4) fL Immature Gran % (Auto) 0.2 % Neut % (Auto) 76.8 % Lymph % (Auto) 14.4 % Bay % (Auto) 8.2 % Eos % (Auto) 0.2 % Baso % (Auto) 0.2 % Immature Gran # (Auto) 0.02 (0.00-0.02) K/uL Neut # (Auto) 7.77 H (1.4-6.5) K/uL Lymph # (Auto) 1.46 (1.2-3.4) K/uL Bay # (Auto) 0.83 H (0.11-0.59) K/uL Eos # (Auto) 0.02 (0-0.5) K/uL Baso # (Auto) 0.02 (0-0.2) K/uL Sodium 139 (136-145) mmol/L Potassium 3.6 (3.5-5.1) mmol/L Chloride 106 (98-107) mmol/L Carbon Dioxide 28 (21-32) mmol/L Anion Gap 5.0 (3-11) BUN 23 H (7-18) mg/dl Creatinine 0.62 (0.6-1.2) mg/dl Est Cr Clr Drug Dosing 59.4 ml/min Est GFR ( Amer) 96.6 Est GFR (Non-Af Amer) 83.4 BUN/Creatinine Ratio 37.9 H (10-20) Glucose 95 (70-99) mg/dl Calcium 8.7 (8.5-10.1) mg/dl Magnesium 2.4 (1.8-2.4) mg/dl Total Bilirubin 0.5 (0.2-1) mg/dl AST 21 (15-37) U/L ALT 20 (12-78) U/L Alkaline Phosphatase 74 (45-117) U/L Ammonia (11-32) umol/L Troponin I 0.035 (0-0.045) ng/ml Total Protein 7.2 (6.4-8.2) gm/dl Albumin 3.2 L (3.4-5.0) gm/dl Globulin 4.0 (2.5-4.0) gm/dl Albumin/Globulin Ratio 0.8 L (0.9-2) TSH 0.406 (0.300-4.500) uIu/ml Urine Color Urine Appearance (Clear) Urine pH (4.5-7.5) Ur Specific [place] (1.000-1.030) Urine Protein (Negative) Urine Glucose (UA) (Negative) Urine Ketones (Negative) Urine Blood (Negative) Urine Nitrite (Negative) Urine Bilirubin (Negative) Urine Urobilinogen (Negative) Ur Leukocyte Esterase (Negative) Urine WBC (Auto) Urine RBC (Auto) U Hyaline Cast (Auto) U Epithel Cells (Auto) Urine Bacteria (Auto) Urine RBC (0-4) /hpf Urine WBC (0-5) /hpf Ur Epithelial Cells (0-5) /lpf Urine Bacteria (Negative) Stl C. diff Tox B Gene (Neg) 08/06/18 08/06/18 08/07/18 Range/Units 14:45 21:50 06:21 WBC 8.15 (4.8-10.8) K/uL RBC 3.62 L (4.2-5.4) M/uL Hgb 11.3 L (12.0-16.0) g/dL Hct 33.6 L (37-47) % MCV 92.8 (80-100) fL MCH 31.2 (25-34) pg MCHC 33.6 (32-36) g/dL RDW Std Deviation 49.1 H (36.4-46.3) fL RDW Coeff of Bull 14.4 (11.5-14.5) % Plt Count 242 (130-400) K/uL MPV 10.2 (7.4-10.4) fL Immature Gran % (Auto) % Neut % (Auto) % Lymph % (Auto) % Bay % (Auto) % Eos % (Auto) % Baso % (Auto) % Immature Gran # (Auto) (0.00-0.02) K/uL Neut # (Auto) (1.4-6.5) K/uL Lymph # (Auto) (1.2-3.4) K/uL Bay # (Auto) (0.11-0.59) K/uL Eos # (Auto) (0-0.5) K/uL Baso # (Auto) (0-0.2) K/uL Sodium (136-145) mmol/L Potassium (3.5-5.1) mmol/L Chloride (98-107) mmol/L Carbon Dioxide (21-32) mmol/L Anion Gap (3-11) BUN (7-18) mg/dl Creatinine (0.6-1.2) mg/dl Est Cr Clr Drug Dosing ml/min Est GFR ( Amer) Est GFR (Non-Af Amer) BUN/Creatinine Ratio (10-20) Glucose (70-99) mg/dl Calcium (8.5-10.1) mg/dl Magnesium (1.8-2.4) mg/dl Total Bilirubin (0.2-1) mg/dl AST (15-37) U/L ALT (12-78) U/L Alkaline Phosphatase (45-117) U/L Ammonia (11-32) umol/L Troponin I (0-0.045) ng/ml Total Protein (6.4-8.2) gm/dl Albumin (3.4-5.0) gm/dl Globulin (2.5-4.0) gm/dl Albumin/Globulin Ratio (0.9-2) TSH (0.300-4.500) uIu/ml Urine Color Yellow Yellow Urine Appearance Clear Clear (Clear) Urine pH 6.5 7.5 (4.5-7.5) Ur Specific [place] 1.010 1.014 (1.000-1.030) Urine Protein Negative Negative (Negative) Urine Glucose (UA) Negative Negative (Negative) Urine Ketones Negative Negative (Negative) Urine Blood Trace H Negative (Negative) Urine Nitrite Negative Negative (Negative) Urine Bilirubin Negative Negative (Negative) Urine Urobilinogen Negative Negative (Negative) Ur Leukocyte Esterase Negative Negative (Negative) Urine WBC (Auto) Not Reportable Urine RBC (Auto) Not Reportable U Hyaline Cast (Auto) Not Reportable U Epithel Cells (Auto) Not Reportable Urine Bacteria (Auto) Not Reportable Urine RBC 0-4 (0-4) /hpf Urine WBC 0-5 (0-5) /hpf Ur Epithelial Cells 0-5 (0-5) /lpf Urine Bacteria Negative (Negative) Stl C. diff Tox B Gene (Neg) 08/07/18 08/07/18 08/08/18 Range/Units 06:21 09:59 08:13 WBC 7.98 (4.8-10.8) K/uL RBC 3.74 L (4.2-5.4) M/uL Hgb 11.7 L (12.0-16.0) g/dL Hct 34.5 L (37-47) % MCV 92.2 (80-100) fL MCH 31.3 (25-34) pg MCHC 33.9 (32-36) g/dL RDW Std Deviation 47.9 H (36.4-46.3) fL RDW Coeff of Bull 14.2 (11.5-14.5) % Plt Count 253 (130-400) K/uL MPV 10.3 (7.4-10.4) fL Immature Gran % (Auto) % Neut % (Auto) % Lymph % (Auto) % Bay % (Auto) % Eos % (Auto) % Baso % (Auto) % Immature Gran # (Auto) (0.00-0.02) K/uL Neut # (Auto) (1.4-6.5) K/uL Lymph # (Auto) (1.2-3.4) K/uL Bay # (Auto) (0.11-0.59) K/uL Eos # (Auto) (0-0.5) K/uL Baso # (Auto) (0-0.2) K/uL Sodium 145 (136-145) mmol/L Potassium 3.0 L D (3.5-5.1) mmol/L Chloride 111 H (98-107) mmol/L Carbon Dioxide 27 (21-32) mmol/L Anion Gap 7.0 (3-11) BUN 12 (7-18) mg/dl Creatinine 0.52 L (0.6-1.2) mg/dl Est Cr Clr Drug Dosing 70.8 ml/min Est GFR ( Amer) 102.4 Est GFR (Non-Af Amer) 88.4 BUN/Creatinine Ratio 23.6 H (10-20) Glucose 93 (70-99) mg/dl Calcium 8.5 (8.5-10.1) mg/dl Magnesium (1.8-2.4) mg/dl Total Bilirubin (0.2-1) mg/dl AST (15-37) U/L ALT (12-78) U/L Alkaline Phosphatase (45-117) U/L Ammonia 11.0 (11-32) umol/L Troponin I (0-0.045) ng/ml Total Protein (6.4-8.2) gm/dl Albumin (3.4-5.0) gm/dl Globulin (2.5-4.0) gm/dl Albumin/Globulin Ratio (0.9-2) TSH (0.300-4.500) uIu/ml Urine Color Urine Appearance (Clear) Urine pH (4.5-7.5) Ur Specific [place] (1.000-1.030) Urine Protein (Negative) Urine Glucose (UA) (Negative) Urine Ketones (Negative) Urine Blood (Negative) Urine Nitrite (Negative) Urine Bilirubin (Negative) Urine Urobilinogen (Negative) Ur Leukocyte Esterase (Negative) Urine WBC (Auto) Urine RBC (Auto) U Hyaline Cast (Auto) U Epithel Cells (Auto) Urine Bacteria (Auto) Urine RBC (0-4) /hpf Urine WBC (0-5) /hpf Ur Epithelial Cells (0-5) /lpf Urine Bacteria (Negative) Stl C. diff Tox B Gene (Neg) 08/08/18 08/08/18 Range/Units 08:13 09:43 WBC (4.8-10.8) K/uL RBC (4.2-5.4) M/uL Hgb (12.0-16.0) g/dL Hct (37-47) % MCV (80-100) fL MCH (25-34) pg MCHC (32-36) g/dL RDW Std Deviation (36.4-46.3) fL RDW Coeff of Bull (11.5-14.5) % Plt Count (130-400) K/uL MPV (7.4-10.4) fL Immature Gran % (Auto) % Neut % (Auto) % Lymph % (Auto) % Bay % (Auto) % Eos % (Auto) % Baso % (Auto) % Immature Gran # (Auto) (0.00-0.02) K/uL Neut # (Auto) (1.4-6.5) K/uL Lymph # (Auto) (1.2-3.4) K/uL Bay # (Auto) (0.11-0.59) K/uL Eos # (Auto) (0-0.5) K/uL Baso # (Auto) (0-0.2) K/uL Sodium 143 (136-145) mmol/L Potassium 3.6 D (3.5-5.1) mmol/L Chloride 110 H (98-107) mmol/L Carbon Dioxide 26 (21-32) mmol/L Anion Gap 7.0 (3-11) BUN 11 (7-18) mg/dl Creatinine 0.46 L (0.6-1.2) mg/dl Est Cr Clr Drug Dosing 80.0 ml/min Est GFR ( Amer) 106.6 Est GFR (Non-Af Amer) 92.0 BUN/Creatinine Ratio 23.9 H (10-20) Glucose 81 (70-99) mg/dl Calcium 8.7 (8.5-10.1) mg/dl Magnesium (1.8-2.4) mg/dl Total Bilirubin (0.2-1) mg/dl AST (15-37) U/L ALT (12-78) U/L Alkaline Phosphatase (45-117) U/L Ammonia (11-32) umol/L Troponin I (0-0.045) ng/ml Total Protein (6.4-8.2) gm/dl Albumin (3.4-5.0) gm/dl Globulin (2.5-4.0) gm/dl Albumin/Globulin Ratio (0.9-2) TSH (0.300-4.500) uIu/ml Urine Color Urine Appearance (Clear) Urine pH (4.5-7.5) Ur Specific [place] (1.000-1.030) Urine Protein (Negative) Urine Glucose (UA) (Negative) Urine Ketones (Negative) Urine Blood (Negative) Urine Nitrite (Negative) Urine Bilirubin (Negative) Urine Urobilinogen (Negative) Ur Leukocyte Esterase (Negative) Urine WBC (Auto) Urine RBC (Auto) U Hyaline Cast (Auto) U Epithel Cells (Auto) Urine Bacteria (Auto) Urine RBC (0-4) /hpf Urine WBC (0-5) /hpf Ur Epithelial Cells (0-5) /lpf Urine Bacteria (Negative) Stl C. diff Tox B Gene Negative Cdiff Gene (Neg) Imaging Data Radiologist's Impression: Radiology results as stated below per my review and the radiologist's interpretation: XR chest 1V portable HISTORY: 82 years-old Female weakness acute weakness COMPARISON: Chest radiograph 03/02/2018 TECHNIQUE: Portable AP view of the chest FINDINGS: Cardiac silhouette is mildly enlarged, unchanged. Calcification of the thoracic aortic arch. Suggested emphysema with chronic interstitial coarsening. No pneumothorax, pleural effusion, focal airspace consolidation or overt pulmonary edema. Degenerative changes of the shoulders and spine. IMPRESSION: No acute process. The above report was generated using voice recognition software. It may contain grammatical, syntax or spelling errors. Electronically signed by: Parvez Rhoades M.D. 08/06/2018 2:[address] head/brain wo con CLINICAL HISTORY: 82 years-old Female with AMS. Acutely altered mental status TECHNIQUE: Multiple axial CT images of the head were obtained without contrast. A dose lowering technique was utilized adhering to the principles of ALARA. CT DOSE: 720.95 mGycm COMPARISON: CT head 03/02/2018. FINDINGS: No acute intracranial hemorrhage, midline shift, intracranial mass, hydrocephalus, territorial ischemia or abnormal extra-axial collection. Age- related involutional changes. Minimal white matter hypodensities redemonstrated suggestive of chronic microvascular ischemic disease. Cerebral vascular calcifications are noted. The calvarium is intact. Mild mucosal thickening about the ethmoid air cells. Mastoid air cells and middle ear cavities are clear. Soft tissues and orbits are unremarkable. Prior bilateral cataract repair. IMPRESSION: No acute intracranial abnormality. The above report was generated using voice recognition software. It may contain grammatical, syntax or spelling errors. Electronically signed by: Parvez Rhoades M.D. 08/06/2018 3:32 PM ECG Data Attestation: I personally reviewed and interpreted this ECG as follows: Indication: altered mental status Rate (beats per minute): 111 Rhythm: sinus tachycardia Findings: + other (prolonged QTc of 500), + LBBB and + left axis deviation Comparison ECG Date: from (08/05/18) Change: the following changes noted (only rate has changed) Blood Pressure Blood Pressure Findings: Normal blood pressure Blood Pressure Disposition: did not require urgent referral MDM Narrative This patient was evaluated and appeared to be in no significant distress. Salome bishop is pleasantly confused on exam, otherwise her exam is fairly reassuring. Patient does have a baseline history of dementia, therefore the acuity of the situation is difficult. She has recently had UTI treated with IV antibiotics for multidrug-resistant organism. She is also had multiple trips to the hospital including an overnight stay. I suspect she has many reasons for encephalopathy however she is in assisted living facility and unable to be safely cared for at this time. IV hydration has been gently continued. CT scan of the head is negative for acute abnormality. UA is negative. Case management has been consulted and the patient was discussed with the hospitalist service for further management of encephalopathy and safe disposition. Impression & Plan Altered mental status Discharge Plan Visit Data *Final* Discharge Date/Time: 08/06/18 18:37 Chief Complaint: Weakness Stated Complaint: WEAKNESS Other Complaint: Abdominal Pain Headache ED Provider: Lauryn Colbert Discharge Problem: Altered mental status Patient Disposition: Admitted As Inpatient Discharge Instructions Interventions: ED Discharge Assessment Last Done: 08/06/18 18:37 The scribe's documentation has been prepared under my direction and personally reviewed by me in its entirety. I confirm that the note above accurately reflects all work, treatment, procedures, and medical decision making performed by me.
[2018-08-06] MEDS ORDERED: FOSFOMYCIN TROMETHAMINE 3 GM PACKET PO SCH (21:00)
[2018-08-06] MEDS: ALPRAZolam 0.25 MG TABLET PO SCH (21:14)
[2018-08-06] MEDS: MIRTAZAPINE TAB 15 MG TAB PO SCH (21:15)
[2018-08-06] MEDS: HEPARIN SOD 5,000 UNIT/0.5 ML VIAL SQ SCH (21:16)
[2018-08-06] MEDS: METOPROLOL SUCC 25MG EXT REL TAB PO SCH (21:16)
[2018-08-06] MEDS ORDERED: PHENAZOPYRIDINE HCL 100 MG TAB PO PRN (21:27)
[2018-08-06 22:15] LABS: Appearance Urine Clear (Clear); Bilirubin Urine Negative (Negative); Blood Urine Negative (Negative); Color Urine Yellow; Glucose Urine UA Negative (Negative); Ketones Urine Negative (Negative); Leukocyte Esterase Urine Negative (Negative); Nitrite Urine Negative (Negative); Protein Urine Negative (Negative); Specific Gravity Urine 1.014 (1.000-1.030); Urobilinogen Urine Negative (Negative); pH Urine 7.5 (4.5-7.5)
[2018-08-07 06:48] LABS: Hematocrit (blood only) 33.6 % (37-47); Hemoglobin 11.3 g/dL (12.0-16.0); Mean Corpuscular Hgb Conc 33.6 g/dL (32-36); Mean Corpuscular Volume 92.8 fL (80-100); Mean Platelet Volume 10.2 fL (7.4-10.4); Platelet Count 242 K/uL (130-400); RDW Coefficient of Variation 14.4 % (11.5-14.5); RDW Standard Deviation 49.1 fL (36.4-46.3); Red Blood Count 3.62 M/uL (4.2-5.4); White Blood Count 8.15 K/uL (4.8-10.8)
[2018-08-07 07:40] LABS: BUN Creatinine Ratio 23.6 (10-20); Calcium 8.5 mg/dl (8.5-10.1); Creatinine Clr Calc Pharmacy 70.8 ml/min; Est GFR (African American) 102.4; Est GFR (Non-African American) 88.4
[2018-08-07] MEDS: ALPRAZolam 0.25 MG TABLET PO SCH ×2 (08:42→21:43)
[2018-08-07] MEDS: METOPROLOL SUCC 25MG EXT REL TAB PO SCH ×2 (08:43→21:45)
[2018-08-07] MEDS: HEPARIN SOD 5,000 UNIT/0.5 ML VIAL SQ SCH ×2 (08:45→21:43)
[2018-08-07] MEDS ORDERED: LORazepam 2 MG/4 ML VIAL ONE (08:51)
[2018-08-07] MEDS ORDERED: LORazepam 0.5 MG/1 ML VIAL IV SCH (09:00)
[2018-08-07] MEDS ORDERED: POTASSIUM CHLORIDE 20 MEQ TABCR PO STA (09:12)
--- NOTE | 2018-08-07 10:14 | Infectious Disease Consult ---
Date of Consultation August 07, 2018 Assessment & Plan (1) UTI due to extended-spectrum beta lactamase (ESBL) producing Escherichia coli: 82-year-old female with history of recurrent urinary tract infection under treatment for ESBL producing E. coli urinary tract infection, now with worsening dementia and encephalopathy. Not clear whether this is related to ertapenem use, should clear over the next few days if this is the case. Await follow-up urine culture to see if further antibiotic therapy required. Have ordered serum ammonia level. Will follow. (2) Metabolic encephalopathy: History of Present Illness Reason for Consultation: ESBL UTI Attending Physician: Marium Hull MD History of Present Illness 82-year-old female well-known to me from recent hospitalization, with history of dementia, recurrent urinary tract infection, with recurrent hospitalizations for encephalopathy usually attributed to urinary tract infections. She was recently rehospitalized with an ESBL producing E. coli urinary tract infection, and was treated with ertapenem with improvement. However over the last week she is had progressively worsening dementia with hallucinations, agitation, and ertapenem was discontinued as positive causative agent. She was ordered dose of fosfomycin for treatment. However symptoms worsened and patient was admitted for further management. This morning she is confused, disoriented, slightly agitated, and unable to provide adequate history. Additional history was obtained from her daughter. No report of fever. Allergies Allergy/AdvReac Type Severity Reaction Status Date / Time Iodinated Contrast- Oral and Allergy Severe Pt unable Verified 08/06/18 13:07 IV Dye to describe celecoxib Allergy Mild Unknown Verified 08/06/18 13:07 Macrolide Antibiotics Allergy Mild Unknown Verified 08/06/18 13:07 Corticosteroids Allergy Unknown Unknown Verified 08/06/18 13:07 (Glucocorticoids) Sulfa (Sulfonamide Allergy Unknown Unknown Verified 08/06/18 13:07 Antibiotics) dextromethorphan AdvReac Intermediate DIZZY Verified 08/06/18 13:07 guaifenesin AdvReac Intermediate DIZZY Verified 08/06/18 13:07 procaterol AdvReac Intermediate Palpitation Verified 08/06/18 13:07 s yellow dye AdvReac Intermediate DIZZY Verified 08/06/18 13:07 erythromycin base AdvReac Unknown stomach Verified 08/06/18 13:07 upset Home Medications Home Medications Medication Instructions Recorded Confirmed Type alprazolam 0.125 mg PO BID 03/02/18 08/06/18 History metoprolol succinate 12.5 mg PO BID 03/02/18 08/06/18 History sennosides [Senokot] 8.6 mg PO DAILY PRN 03/02/18 08/06/18 History Azo Bladder Control 1 dose PO UD PRN 07/31/18 08/06/18 History acetaminophen 325 mg PO Q6H PRN MDD 3gm/24hr 08/05/18 08/06/18 History docusate sodium [COLACE Clear] 50 mg PO DAILY PRN 08/05/18 08/06/18 History loperamide [Imodium A-D] 2 mg PO QID PRN 08/05/18 08/06/18 History mirtazapine 30 mg PO HS 08/05/18 08/06/18 History ertapenem 1 g IV UD 08/06/18 08/06/18 History Patient History Medical History History of hysterectomy (Chronic) LBBB (left bundle branch block) (Chronic) IBS (irritable bowel syndrome) (Chronic) Recurrent UTI (Chronic) Dementia (Chronic) Depression (Chronic) GERD (gastroesophageal reflux disease) (Chronic) Surgical History S/P tonsillectomy and adenoidectomy (Chronic) History of appendectomy (Chronic) H/O arthroscopic knee surgery (Chronic) H/O oophorectomy (Chronic) Family History Father Coronary heart disease Mother Coronary heart disease Social History Preferred Language: Monegasque 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: Effective Yacht Master Required: No Beliefs That Will Affect Care: None Current Living Situation: Personal Care Facility Current Living Situation Comment: [facility] Other Information That Helps Us Care for You: Yes (needs alf) Feels Safe at Home: Yes Safety Concerns: Feels Safe At This Time Smoking Status: Unknown if ever smoked Hx Alcohol Use: No Hx Substance Use: No Review of Systems Review of Systems: Unobtainable due to cognitive status Physical Exam Constitutional: well nourished, + thin, + altered mental status and comfortable; no acute distress Eyes: PERRL, conjunctivae normal, anicteric sclerae ENMT: external ear and nose normal, oropharynx normal Neck: trachea midline, no thyromegaly neck nontender Respiratory: normal respiratory effort, lungs clear to auscultation normal percussion; does not use accessory muscles Cardiovascular: Rate/Rhythm: regular rate and regular rhythm Heart Sounds: normal S1 and normal S2; no gallop, no murmur and no cardiac rub Vessels: normal peripheral pulses; no JVD Gastrointestinal (Abdomen): normal bowel sounds, soft, nontender, no hepatosplenomegaly Musculoskeletal: no cyanosis or clubbing, extremities motor strength 5/5 Spine: thoracic spine normal to inspection and lumbar spine normal to inspection; no cervical spinal tenderness Skin: no rashes, warm and dry normal turgor; no lesions Neurologic: moves all extremities and awake Psychiatric: Orientation: alert Motor Behavior: + psychomotor agitation Hallucinations: + visual hallucinations Lymphatic: no cervical or axillary lymphadenopathy no inguinal lymphadenopathy Results & Data Vital Signs (Past 12 Hours) Vital Signs Temp Pulse Resp BP Pulse Ox 08/07/18 07:29 90 16 157/71 H 08/07/18 00:09 36.6 C 76 20 126/66 98 Laboratory Results Short CBC 08/06/18 08/07/18 Range/Units 14:18 06:21 WBC 10.12 8.15 (4.8-10.8) K/uL Hgb 11.5 L 11.3 L (12.0-16.0) g/dL Hct 33.4 L 33.6 L (37-47) % Plt Count 223 242 (130-400) K/uL BMP 08/06/18 08/07/18 14:18 06:21 Sodium 139 145 Potassium 3.6 3.0 L D Chloride 106 111 H Carbon Dioxide 28 27 BUN 23 H 12 Creatinine 0.62 0.52 L Glucose 95 93 Calcium 8.7 8.5 Cardiac Enzymes 08/06/18 Range/Units 14:18 Troponin I 0.035 (0-0.045) ng/ml Liver Function 08/06/18 Range/Units 14:18 Total Bilirubin 0.5 (0.2-1) mg/dl AST 21 (15-37) U/L ALT 20 (12-78) U/L Alkaline Phosphatase 74 (45-117) U/L Albumin 3.2 L (3.4-5.0) gm/dl Urine 08/06/18 08/06/18 Range/Units 14:45 21:50 Urine Color Yellow Yellow Urine Appearance Clear Clear (Clear) Urine pH 6.5 7.5 (4.5-7.5) Ur Specific [place] 1.010 1.014 (1.000-1.030) Urine Protein Negative Negative (Negative) Urine Glucose (UA) Negative Negative (Negative) Diagnostic Findings CT head/brain wo con CLINICAL HISTORY: 82 years-old Female with AMS. Acutely altered mental status TECHNIQUE: Multiple axial CT images of the head were obtained without contrast. A dose lowering technique was utilized adhering to the principles of ALARA. CT DOSE: 720.95 mGycm COMPARISON: CT head 03/02/2018. FINDINGS: No acute intracranial hemorrhage, midline shift, intracranial mass, hydrocephalus, territorial ischemia or abnormal extra-axial collection. Age- related involutional changes. Minimal white matter hypodensities redemonstrated suggestive of chronic microvascular ischemic disease. Cerebral vascular calcifications are noted. The calvarium is intact. Mild mucosal thickening about the ethmoid air cells. Mastoid air cells and middle ear cavities are clear. Soft tissues and orbits are unremarkable. Prior bilateral cataract repair. IMPRESSION: No acute intracranial abnormality. The above report was generated using voice recognition software. It may contain grammatical, syntax or spelling errors.
[2018-08-07] MEDS ORDERED: DiphenhydrAMINE HCL 50 MG/ML VIAL IV PRN (11:16)
[2018-08-07] MEDS ORDERED: DiphenhydrAMINE HCL 50 MG/ML VIAL ONE (11:49)
--- NOTE | 2018-08-07 14:40 | Hospitalist Progress Note ---
Date of Service August 07, 2018 Assessment & Plan (1) Metabolic encephalopathy: Likely secondary to UTI with ESBL and complicated by having dementia and is on medications Symptomatic treatment (2) UTI due to extended-spectrum beta lactamase (ESBL) producing Escherichia coli: This is an 82yo F with a PMH of ESBL UTI, HTN, depression, dementia and LBBB who presents from [facility] with frequent falls and change to mental status over the past few days. -Not any better since admission with occasional agitation and more confusion -Fall yesterday on 08/05, ongoing agitation and hallucinations over past few days -CT head negative for acute changes -Ddx: Side effect of Ertapenem vs ongoing UTI -Daughter discussed with Dr. Steiner yesterday, who recommended holding Ertapenem and giving Fosfomycin x 1 -In touch with [facility] to clarify whether or not dose has been given yet -ID consulted-appreciate input and recommendations -IV fluids -continue for now and monitor volume status (3) Generalized weakness: Weakness in setting of infection -PT/OT evaluation, conditioning for possible SNF placement (4) Diarrhea: Endorses a few episodes yesterday and today -C diff toxin ordered (5) HTN (hypertension): Normotensive. Continue Toprol BID with hold parameters Blood pressure is controlled (6) Depression: Continue Remeron HS Dementia Seems to be acute delirium now DVT Ppx: SQ heparin Code status: DNR per discussion with daughter/POA, patient PCP: [facility] Dispo: Admitted to med/surg. Discharge planning ordered. Discussed with the daughter Subjective 08/07 The patient was seen and examined in the medical floor in the presence of the daughter This is an 82yo F with a PMH of ESBL UTI, HTN, depression, dementia and LBBB who presents from [facility] with frequent falls and change to mental status over the past few days. Noted to have UTI secondary to ESBL Has occasional anxiety with agitation but denies any other symptoms Review of Systems Review of Systems: All systems reviewed and are unremarkable except as mentioned below Constitutional: + fatigue and + problem reported (Agitated and uncooperative at times) Neurologic: + generalized weakness, + abnormal speech, + confusion and + memory loss Physical Exam Physical Exam: Moderate distress at rest Constitutional: + thin and + behavioral limitations Eyes: PERRL, conjunctivae normal, anicteric sclerae ENMT: external ear and nose normal, oropharynx normal Neck: trachea midline, no thyromegaly Respiratory: normal respiratory effort Auscultation: lungs clear to auscultation bilaterally Cardiovascular: Rate/Rhythm: regular rate and regular rhythm Heart Sounds: normal S1 and normal S2; no murmur Gastrointestinal (Abdomen): Inspection/Auscultation: abdomen normal to inspection and normal bowel sounds Percussion/Palpation: abdomen soft; abdomen nontender Neurologic: Alert and awake. Confused. Generally weak Psychiatric: Orientation: alert Affect: + anxious affect and + irritable affect Mood: + anxious mood Results & Data Vital Signs (Past 12 Hours) Vital Signs Pulse Resp BP 08/07/18 07:29 90 16 157/71 H Laboratory Results Short CBC 08/06/18 08/07/18 Range/Units 14:18 06:21 WBC 10.12 8.15 (4.8-10.8) K/uL Hgb 11.5 L 11.3 L (12.0-16.0) g/dL Hct 33.4 L 33.6 L (37-47) % Plt Count 223 242 (130-400) K/uL BMP 08/06/18 08/07/18 14:18 06:21 Sodium 139 145 Potassium 3.6 3.0 L D Chloride 106 111 H Carbon Dioxide 28 27 BUN 23 H 12 Creatinine 0.62 0.52 L Glucose 95 93 Calcium 8.7 8.5 Cardiac Enzymes 08/06/18 Range/Units 14:18 Troponin I 0.035 (0-0.045) ng/ml Liver Function 08/06/18 Range/Units 14:18 Total Bilirubin 0.5 (0.2-1) mg/dl AST 21 (15-37) U/L ALT 20 (12-78) U/L Alkaline Phosphatase 74 (45-117) U/L Albumin 3.2 L (3.4-5.0) gm/dl Urine 08/06/18 08/06/18 Range/Units 14:45 21:50 Urine Color Yellow Yellow Urine Appearance Clear Clear (Clear) Urine pH 6.5 7.5 (4.5-7.5) Ur Specific [place] 1.010 1.014 (1.000-1.030) Urine Protein Negative Negative (Negative) Urine Glucose (UA) Negative Negative (Negative) Medications Administered Current Inpatient Medications Acetaminophen (Tylenol) 325 mg PO Q6H PRN PRN Reason: Fever Or Pain Stop: 09/05/18 19:13 Alprazolam (Xanax) 0.125 mg PO BID MARIAA Stop: 09/05/18 20:59 Last Admin: 08/07/18 08:42 Dose: 0.125 mg Documented by: Diphenhydramine HCl (Benadryl) 12.5 mg IV Q6H PRN PRN Reason: Hives Stop: 09/06/18 11:15 Heparin Sodium (Beef Lung) (Heparin Sod 10 Unit/Ml Flush) 5 ml FLUSH PRN PRN PRN Reason: Flush Stop: 09/05/18 23:24 Last Admin: 08/07/18 11:52 Dose: 5 ml Documented by: Heparin Sodium (Porcine) (Heparin Sodium (Porcine)) 5,000 units SQ Q12 [facility]IAA Stop: 09/05/18 20:59 Last Admin: 08/07/18 08:45 Dose: Not Given Documented by: Metoprolol Succinate (Toprol Xl) 12.5 mg PO BID MARIAA Stop: 09/05/18 20:59 Last Admin: 08/07/18 08:43 Dose: 12.5 mg Documented by: Mirtazapine (Remeron) 30 mg PO HS MARIAA Stop: 09/05/18 20:59 Last Admin: 08/06/18 21:15 Dose: 30 mg Documented by: Ondansetron HCl (Zofran) 4 mg IV Q6H PRN PRN Reason: Nausea Stop: 09/05/18 19:13 Phenazopyridine HCl (Pyridium) 100 mg PO TID PRN PRN Reason: Dysuria Stop: 09/05/18 21:26
[2018-08-07] MEDS: MIRTAZAPINE TAB 15 MG TAB PO SCH (21:43)
[2018-08-08 08:30] LABS: Hematocrit (blood only) 34.5 % (37-47); Hemoglobin 11.7 g/dL (12.0-16.0); Mean Corpuscular Hgb Conc 33.9 g/dL (32-36); Mean Corpuscular Volume 92.2 fL (80-100); Mean Platelet Volume 10.3 fL (7.4-10.4); Platelet Count 253 K/uL (130-400); RDW Coefficient of Variation 14.2 % (11.5-14.5); RDW Standard Deviation 47.9 fL (36.4-46.3); Red Blood Count 3.74 M/uL (4.2-5.4); White Blood Count 7.98 K/uL (4.8-10.8)
[2018-08-08] MEDS: ALPRAZolam 0.25 MG TABLET PO SCH ×2 (09:11→20:01)
[2018-08-08] MEDS: METOPROLOL SUCC 25MG EXT REL TAB PO SCH ×2 (09:11→20:00)
[2018-08-08] MEDS: HEPARIN SOD 5,000 UNIT/0.5 ML VIAL SQ SCH ×2 (09:12→20:00)
[2018-08-08 09:16] LABS: BUN Creatinine Ratio 23.9 (10-20); Calcium 8.7 mg/dl (8.5-10.1); Est GFR (African American) 106.6; Potassium 3.6 mmol/L (3.5-5.1)
--- NOTE | 2018-08-08 12:02 | Hospitalist Progress Note ---
Date of Service August 08, 2018 Assessment & Plan (1) Metabolic encephalopathy: Likely secondary to UTI with ESBL and complicated by having dementia and is on medications Symptomatic treatment Clinically better with acute confusion Ammonia level and other labs unremarkable (2) UTI due to extended-spectrum beta lactamase (ESBL) producing Escherichia coli: This is an 82yo F with a PMH of ESBL UTI, HTN, depression, dementia and LBBB who presents from [facility] with frequent falls and change to mental status over the past few days. -Not any better since admission with occasional agitation and more confusion -Fall yesterday on 08/05, ongoing agitation and hallucinations over past few days -CT head negative for acute changes -Ddx: Side effect of Ertapenem vs ongoing UTI -Daughter discussed with Dr. Steiner yesterday, who recommended holding Ertapenem and giving Fosfomycin x 1 -In touch with [facility] to clarify whether or not dose has been given yet -ID consulted-appreciate input and recommendations -IV fluids -continue for now and monitor volume status -Urine culture has been negative so far (3) Generalized weakness: Weakness in setting of infection -PT/OT evaluation, conditioning for possible SNF placement -Awaiting placement to skilled care facility -Advance to the precaution to electronic (4) Diarrhea: Endorses a few episodes yesterday and today -C diff toxin ordered - THROAT: No sore throat, difficulty swallowing, or hoarseness. -Diarrhea is controlled (5) HTN (hypertension): Normotensive. Continue Toprol BID with hold parameters Blood pressure is controlled (6) Depression: Continue Remeron HS Dementia Seems to be acute delirium now Has acute delirium now but seems to be stable DVT Ppx: SQ heparin Code status: DNR per discussion with daughter/POA, patient Discussed with 2 daughters today They are reasonably happy with the management plan PCP: [facility] Dispo: Admitted to med/surg. Discharge planning ordered. Discussed with the daughter Subjective 08/07 The patient was seen and examined in the medical floor in the presence of the daughter This is an 82yo F with a PMH of ESBL UTI, HTN, depression, dementia and LBBB who presents from [facility] with frequent falls and change to mental status over the past few days. Noted to have UTI secondary to ESBL Has occasional anxiety with agitation but denies any other symptoms 08/08 The patient was seen and examined the medical floor She is confused but agitation She has not been eating or drinking enough Denies any other symptoms Review of Systems Review of Systems: All systems reviewed and are unremarkable except as noted below Constitutional: + fatigue, + weakness and + anorexia Neurologic: + confusion and + memory loss Physical Exam Physical Exam: No apparent distress at rest Constitutional: + thin and + behavioral limitations Eyes: PERRL, conjunctivae normal, anicteric sclerae ENMT: external ear and nose normal, oropharynx normal Neck: trachea midline, no thyromegaly Respiratory: normal respiratory effort Auscultation: lungs clear to auscultation bilaterally Cardiovascular: Rate/Rhythm: regular rate and regular rhythm Heart Sounds: normal S1 and normal S2; no murmur Gastrointestinal (Abdomen): Inspection/Auscultation: abdomen normal to inspection and normal bowel sounds Percussion/Palpation: abdomen soft; abdomen nontender Psychiatric: Orientation: alert Affect: + anxious affect and + irritable affect Mood: + anxious mood Results & Data Vital Signs (Past 12 Hours) Vital Signs Temp Pulse BP Pulse Ox 08/08/18 11:26 36.8 C 73 107/64 95 Laboratory Results Short CBC 08/08/18 Range/Units 08:13 WBC 7.98 (4.8-10.8) K/uL Hgb 11.7 L (12.0-16.0) g/dL Hct 34.5 L (37-47) % Plt Count 253 (130-400) K/uL BMP 08/08/18 08:13 Sodium 143 Potassium 3.6 D Chloride 110 H Carbon Dioxide 26 BUN 11 Creatinine 0.46 L Glucose 81 Calcium 8.7 Medications Administered Current Inpatient Medications Acetaminophen (Tylenol) 325 mg PO Q6H PRN PRN Reason: Fever Or Pain Stop: 09/05/18 19:13 Alprazolam (Xanax) 0.125 mg PO BID MARIAA Stop: 09/05/18 20:59 Last Admin: 08/08/18 09:11 Dose: 0.125 mg Documented by: Diphenhydramine HCl (Benadryl) 12.5 mg IV Q6H PRN PRN Reason: Hives Stop: 09/06/18 11:15 Heparin Sodium (Beef Lung) (Heparin Sod 10 Unit/Ml Flush) 5 ml FLUSH PRN PRN PRN Reason: Flush Stop: 09/05/18 23:24 Last Admin: 08/08/18 10:44 Dose: 5 ml Documented by: Heparin Sodium (Porcine) (Heparin Sodium (Porcine)) 5,000 units SQ Q12 [facility] Stop: 09/05/18 20:59 Last Admin: 08/08/18 09:12 Dose: 5,000 units Documented by: Metoprolol Succinate (Toprol Xl) 12.5 mg PO BID [facility] Stop: 09/05/18 20:59 Last Admin: 08/08/18 09:11 Dose: 12.5 mg Documented by: Mirtazapine (Remeron) 30 mg PO HS [facility] Stop: 09/05/18 20:59 Last Admin: 08/07/18 21:43 Dose: 30 mg Documented by: Ondansetron HCl (Zofran) 4 mg IV Q6H PRN PRN Reason: Nausea Stop: 09/05/18 19:13 Phenazopyridine HCl (Pyridium) 100 mg PO TID PRN PRN Reason: Dysuria Stop: 09/05/18 21:26
[2018-08-08] MEDS: MIRTAZAPINE TAB 15 MG TAB PO SCH (20:01)
[2018-08-09] MEDS: HEPARIN SOD 5,000 UNIT/0.5 ML VIAL SQ SCH ×2 (08:54→21:02)
[2018-08-09] MEDS: ALPRAZolam 0.25 MG TABLET PO SCH ×2 (08:54→20:43)
[2018-08-09] MEDS: METOPROLOL SUCC 25MG EXT REL TAB PO SCH ×2 (08:54→20:44)
[2018-08-09] MEDS: D5NSS + 20MEQ KCL 20 MEQ/1,000 ML BAG IV SCH (13:39)
[2018-08-09] MEDS: MEGESTROL ACETATE SUSP 400 MG/10 ML UDC PO SCH (13:43)
--- NOTE | 2018-08-09 15:53 | Infectious Disease Progress Nt ---
Date of Service August 08, 2018 Assessment & Plan (1) UTI due to extended-spectrum beta lactamase (ESBL) producing Escherichia coli: 82-year-old female with history of recurrent urinary tract infection under treatment for ESBL producing E. coli urinary tract infection, now with worsening dementia and encephalopathy. Not clear whether this is related to ertapenem use, should clear over the next few days if this is the case. Await follow-up urine culture to see if further antibiotic therapy required. (2) Metabolic encephalopathy: Subjective Patient seen in follow-up for acute encephalopathy. Somewhat better this morning, more conversant. Remains afebrile. Cultures negative to date. Review of Systems Review of Systems: Unobtainable due to cognitive status Physical Exam Constitutional: well nourished, + thin, + altered mental status and comfortable; no acute distress Eyes: PERRL, conjunctivae normal, anicteric sclerae ENMT: external ear and nose normal, oropharynx normal Neck: trachea midline, no thyromegaly neck nontender Respiratory: normal respiratory effort, lungs clear to auscultation normal percussion; does not use accessory muscles Cardiovascular: Rate/Rhythm: regular rate and regular rhythm Heart Sounds: normal S1 and normal S2; no gallop, no murmur and no cardiac rub Vessels: normal peripheral pulses; no JVD Gastrointestinal (Abdomen): normal bowel sounds, soft, nontender, no hepatosplenomegaly Musculoskeletal: no cyanosis or clubbing, extremities motor strength 5/5 Spine: thoracic spine normal to inspection and lumbar spine normal to inspection; no cervical spinal tenderness Skin: no rashes, warm and dry normal turgor; no lesions Neurologic: moves all extremities and awake Psychiatric: Orientation: alert Motor Behavior: + psychomotor agitation Hallucinations: + visual hallucinations Lymphatic: no cervical or axillary lymphadenopathy no inguinal lymphaden opathy Results & Data Vital Signs (Past 12 Hours) Vital Signs Temp Pulse Resp BP Pulse Ox 08/09/18 07:46 36.6 C 95 H 18 133/68 96 Laboratory Results Laboratory Results - last 48 hr 08/08/18 08/08/18 08/08/18 08:13 08:13 09:43 WBC 7.98 RBC 3.74 L Hgb 11.7 L Hct 34.5 L MCV 92.2 MCH 31.3 MCHC 33.9 RDW Std Deviation 47.9 H RDW Coeff of Bull 14.2 Plt Count 253 MPV 10.3 Sodium 143 Potassium 3.6 D Chloride 110 H Carbon Dioxide 26 Anion Gap 7.0 BUN 11 Creatinine 0.46 L Est Cr Clr Drug Dosing 80.0 Est GFR ( Amer) 106.6 Est GFR (Non-Af Amer) 92.0 BUN/Creatinine Ratio 23.9 H Glucose 81 Calcium 8.7 Stl C. diff Tox B Gene Negative Cdiff Gene Diagnostic Findings Microbiology 08/06/18 21:50 Urine,Clean Catch Urine Culture - Final No growth - less than 1,000 colonies/mL. 08/06/18 20:17 Blood Blood Culture - Preliminary No growth to date. 08/06/18 20:14 Blood Blood Culture - Preliminary No growth to date.
--- NOTE | 2018-08-09 17:10 | Hospitalist Progress Note ---
Date of Service August 09, 2018 Assessment & Plan (1) Metabolic encephalopathy: Likely secondary to UTI with ESBL and complicated by having dementia and is on medications Symptomatic treatment Clinically better with acute confusion Ammonia level and other labs unremarkable Has been having occasional acute confusion (2) UTI due to extended-spectrum beta lactamase (ESBL) producing Escherichia coli: This is an 82yo F with a PMH of ESBL UTI, HTN, depression, dementia and LBBB who presents from [facility] with frequent falls and change to mental status over the past few days. -Not any better since admission with occasional agitation and more confusion -Fall yesterday on 08/05, ongoing agitation and hallucinations over past few days -CT head negative for acute changes -Ddx: Side effect of Ertapenem vs ongoing UTI -Daughter discussed with Dr. Steiner yesterday, who recommended holding Ertapenem and giving Fosfomycin x 1 -In touch with [facility] to clarify whether or not dose has been given yet -ID consulted-appreciate input and recommendations -IV fluids -continue for now and monitor volume status -Urine culture has been negative (3) Generalized weakness: Weakness in setting of infection -PT/OT evaluation, conditioning for possible SNF placement -Awaiting placement to skilled care facility -Advance to the precaution to electronic (4) Diarrhea: Endorses a few episodes yesterday and today -C diff toxin ordered - THROAT: No sore throat, difficulty swallowing, or hoarseness. -Diarrhea is controlled (5) HTN (hypertension): Normotensive. Continue Toprol BID with hold parameters Blood pressure is controlled (6) Depression: Continue Remeron HS Dementia Seems to be acute delirium now Has acute delirium now but seems to be stable DVT Ppx: SQ heparin Code status: DNR per discussion with daughter/POA, patient Discussed with 2 daughters today They are reasonably happy with the management plan PCP: [facility] Dispo: Admitted to med/surg. Discharge planning ordered. Discussed with the daughter (7) Anorexia: She has not been eating or drinking since admission Will try a small amount of IV fluid Medications for appetite stimulation Awaiting for placement Subjective 08/07 The patient was seen and examined in the medical floor in the presence of the daughter This is an 82yo F with a PMH of ESBL UTI, HTN, depression, dementia and LBBB who presents from [facility] with frequent falls and change to mental status over the past few days. Noted to have UTI secondary to ESBL Has occasional anxiety with agitation but denies any other symptoms 2 The patient was seen and examined the medical floor She is confused but agitation She has not been eating or drinking enough Denies any other symptoms 08/09 Patient was seen and examined in the medical floor She was very agitated and confused this morning Has any eating or drinking any since admission Denies any significant pain or shortness of breath Review of Systems Psychiatric: + depression, + anxiety and + confusion Physical Exam Physical Exam: Generalized weakness with lethargy Constitutional: + thin and + behavioral limitations Eyes: PERRL, conjunctivae normal, anicteric sclerae ENMT: external ear and nose normal, oropharynx normal Neck: trachea midline, no thyromegaly Respiratory: normal respiratory effort Auscultation: lungs clear to auscultation bilaterally Cardiovascular: Rate/Rhythm: regular rate and regular rhythm Heart Sounds: normal S1 and normal S2; no murmur Gastrointestinal (Abdomen): Inspection/Auscultation: abdomen normal to inspection and normal bowel sounds Percussion/Palpation: abdomen soft; abdomen nontender Psychiatric: Orientation: alert Affect: + anxious affect and + irritable affect Mood: + anxious mood Results & Data Vital Signs (Past 12 Hours) Vital Signs Temp Pulse Resp BP Pulse Ox 08/09/18 07:46 36.6 C 95 H 18 133/68 96
[2018-08-09] MEDS: MIRTAZAPINE TAB 15 MG TAB PO SCH (20:43)
[2018-08-10] MEDS: D5NSS + 20MEQ KCL 20 MEQ/1,000 ML BAG IV SCH ×2 (01:24→14:01)
[2018-08-10] MEDS: METOPROLOL SUCC 25MG EXT REL TAB PO SCH ×2 (08:24→20:24)
[2018-08-10] MEDS: MEGESTROL ACETATE SUSP 400 MG/10 ML UDC PO SCH (08:24)
[2018-08-10] MEDS: HEPARIN SOD 5,000 UNIT/0.5 ML VIAL SQ SCH ×2 (08:25→20:29)
[2018-08-10] MEDS: ALPRAZolam 0.25 MG TABLET PO SCH ×2 (08:30→20:23)
--- NOTE | 2018-08-10 15:45 | Hospitalist Progress Note ---
Date of Service August 10, 2018 Assessment & Plan (1) Metabolic encephalopathy: Likely secondary to UTI with ESBL and complicated by having dementia and is on medications Symptomatic treatment Clinically better with acute confusion Ammonia level and other labs unremarkable Has been having occasional acute confusion Remains a stable (2) UTI due to extended-spectrum beta lactamase (ESBL) producing Escherichia coli: This is an 82yo F with a PMH of ESBL UTI, HTN, depression, dementia and LBBB who presents from [facility] with frequent falls and change to mental status over the past few days. -Not any better since admission with occasional agitation and more confusion -Fall yesterday on 08/05, ongoing agitation and hallucinations over past few days -CT head negative for acute changes -Ddx: Side effect of Ertapenem vs ongoing UTI -Daughter discussed with Dr. Steiner yesterday, who recommended holding Ertapenem and giving Fosfomycin x 1 -In touch with [facility] to clarify whether or not dose has been given yet -ID consulted-appreciate input and recommendations -IV fluids -continue for now and monitor volume status -Urine culture has been negative -Denies any urinary symptoms (3) Generalized weakness: Weakness in setting of infection -PT/OT evaluation, conditioning for possible SNF placement -Awaiting placement to skilled care facility -Advance to the precaution to electronic -Will need placement (4) Diarrhea: Endorses a few episodes yesterday and today -C diff toxin ordered - THROAT: No sore throat, difficulty swallowing, or hoarseness. -Diarrhea is controlled (5) HTN (hypertension): Normotensive. Continue Toprol BID with hold parameters Blood pressure is controlled (6) Depression: Continue Remeron HS Dementia Seems to be acute delirium now Has acute delirium now but seems to be stable DVT Ppx: SQ heparin Code status: DNR per discussion with daughter/POA, patient Discussed with 2 daughters today They are reasonably happy with the management plan PCP: [facility] Dispo: Admitted to med/surg. Discharge planning ordered. Discussed with the daughter (7) Anorexia: She has not been eating or drinking since admission Will try a small amount of IV fluid Medications for appetite stimulation Awaiting for placement Subjective 08/07 The patient was seen and examined in the medical floor in the presence of the daughter This is an 82yo F with a PMH of ESBL UTI, HTN, depression, dementia and LBBB who presents from [facility] with frequent falls and change to mental status over the past few days. Noted to have UTI secondary to ESBL Has occasional anxiety with agitation but denies any other symptoms 08/08 The patient was seen and examined the medical floor She is confused but agitation She has not been eating or drinking enough Denies any other symptoms 08/09 Patient was seen and examined in the medical floor She was very agitated and confused this morning Has any eating or drinking any since admission Denies any significant pain or shortness of breath 08/10 Patient was seen and examined in presence of the daughters She has been medically bright She has any eating or drinking Review of Systems Constitutional: + fatigue, + weakness and + anorexia Neurologic: + confusion and + memory loss Psychiatric: + depression, + anxiety and + confusion Physical Exam Physical Exam: No apparent distress at rest Constitutional: + thin and + behavioral limitations Eyes: PERRL, conjunctivae normal, anicteric sclerae ENMT: external ear and nose normal, oropharynx normal Neck: trachea midline, no thyromegaly Respiratory: normal respiratory effort Auscultation: lungs clear to auscultation bilaterally Cardiovascular: Rate/Rhythm: regular rate and regular rhythm Heart Sounds: normal S1 and normal S2; no murmur Gastrointestinal (Abdomen): Inspection/Auscultation: abdomen normal to inspection and normal bowel sounds Percussion/Palpation: abdomen soft; abdomen nontender Psychiatric: Orientation: alert Affect: + anxious affect and + irritable affect Mood: + anxious mood Results & Data Vital Signs (Past 12 Hours) Vital Signs Temp Pulse Resp BP Pulse Ox 08/10/18 15:36 36.7 C 78 18 158/91 H 99 08/10/18 06:36 36.4 C L 89 20 137/74 98 Medications Administered Current Inpatient Medications Acetaminophen (Tylenol) 325 mg PO Q6H PRN PRN Reason: Fever Or Pain Stop: 09/05/18 19:13 Alprazolam (Xanax) 0.125 mg PO BID [facility] Stop: 09/05/18 20:59 Last Admin: 08/10/18 08:30 Dose: 0.125 mg Documented by: Diphenhydramine HCl (Benadryl) 12.5 mg IV Q6H PRN PRN Reason: Hives Stop: 09/06/18 11:15 Heparin Sodium (Beef Lung) (Heparin Sod 10 Unit/Ml Flush) 5 ml FLUSH PRN PRN PRN Reason: Flush Stop: 09/05/18 23:24 Last Admin: 08/08/18 10:44 Dose: 5 ml Documented by: Heparin Sodium (Porcine) (Heparin Sodium (Porcine)) 5,000 units SQ Q12 [facility] Stop: 09/05/18 20:59 Last Admin: 08/10/18 08:25 Dose: 5,000 units Documented by: Potassium Chloride/Dextrose/Sod Cl (D5nss + 20meq Kcl) 20 meq in 1,000 mls @ 80 mls/hr IV .[id number] [facility]IAA Stop: 08/11/18 02:29 Last Admin: 08/10/18 14:01 Dose: 80 mls/hr Documented by: Megestrol Acetate (Megace) 400 mg PO QAM [facility] Stop: 09/08/18 12:14 Last Admin: 08/10/18 08:24 Dose: 400 mg Documented by: Metoprolol Succinate (Toprol Xl) 12.5 mg PO BID [facility] Stop: 09/05/18 20:59 Last Admin: 08/10/18 08:24 Dose: 12.5 mg Documented by: Mirtazapine (Remeron) 30 mg PO HS [facility] Stop: 09/05/18 20:59 Last Admin: 08/09/18 20:43 Dose: 30 mg Documented by: Ondansetron HCl (Zofran) 4 mg IV Q6H PRN PRN Reason: Nausea Stop: 09/05/18 19:13 Phenazopyridine HCl (Pyridium) 100 mg PO TID PRN PRN Reason: Dysuria Stop: 09/05/18 21:26
[2018-08-10] MEDS: MIRTAZAPINE TAB 15 MG TAB PO SCH (20:24)
--- NOTE | 2018-08-10 21:24 | Infectious Disease Progress Nt ---
Date of Service August 10, 2018 Assessment & Plan (1) UTI due to extended-spectrum beta lactamase (ESBL) producing Escherichia coli: 82-year-old female with history of recurrent urinary tract infection under treatment for ESBL producing E. coli urinary tract infection, admitted with worsening dementia and encephalopathy. Possibly side effect of ertapenem, now better off this antibiotic. Follow-up urine culture negative, to hold further antibiotics. Will follow. (2) Metabolic encephalopathy: Subjective Patient seen in follow-up for acute encephalopathy. Somewhat better this morning, more conversant. Remains afebrile. Cultures negative to date. Review of Systems Review of Systems: All systems reviewed & are unremarkable except as noted in HPI & below Physical Exam Constitutional: well nourished, + thin, + altered mental status and comfortable; no acute distress Eyes: PERRL, conjunctivae normal, anicteric sclerae ENMT: external ear and nose normal, oropharynx normal Neck: trachea midline, no thyromegaly neck nontender Respiratory: normal respiratory effort, lungs clear to auscultation normal percussion; does not use accessory muscles Cardiovascular: Rate/Rhythm: regular rate and regular rhythm Heart Sounds: normal S1 and normal S2; no gallop, no murmur and no cardiac rub Vessels: normal peripheral pulses; no JVD Gastrointestinal (Abdomen): normal bowel sounds, soft, nontender, no hepatosplenomegaly Musculoskeletal: no cyanosis or clubbing, extremities motor strength 5/5 Spine: thoracic spine normal to inspection and lumbar spine normal to inspection; no cervical spinal tenderness Skin: no rashes, warm and dry normal turgor; no lesions Neurologic: moves all extremities and awake Psychiatric: Orientation: alert Motor Behavior: + psychomotor agitation Hallucinations: + visual hallucinations Lymphatic: no cervical or axillary lymphadenopathy no inguinal lymphadenopa thy Results & Data Vital Signs (Past 12 Hours) Vital Signs Temp Pulse Resp BP Pulse Ox 08/10/18 15:36 36.7 C 78 18 158/91 H 99 Diagnostic Findings Microbiology 08/06/18 21:50 Urine,Clean Catch Urine Culture - Final No growth - less than 1,000 colonies/mL. 08/06/18 20:17 Blood Blood Culture - Preliminary No growth to date. 08/06/18 20:14 Blood Blood Culture - Preliminary No growth to date.
[2018-08-11] MEDS: MEGESTROL ACETATE SUSP 400 MG/10 ML UDC PO SCH (07:29)
[2018-08-11] MEDS: HEPARIN SOD 5,000 UNIT/0.5 ML VIAL SQ SCH ×2 (07:29→20:56)
[2018-08-11] MEDS: METOPROLOL SUCC 25MG EXT REL TAB PO SCH ×2 (07:29→20:48)
[2018-08-11] MEDS: ALPRAZolam 0.25 MG TABLET PO SCH ×2 (07:31→20:47)
--- NOTE | 2018-08-11 12:17 | Hospitalist Progress Note ---
Date of Service August 11, 2018 Assessment & Plan (1) Metabolic encephalopathy: Likely secondary to UTI with ESBL and complicated by having dementia and is on medications Symptomatic treatment Clinically better with acute confusion Ammonia level and other labs unremarkable Has been having occasional acute confusion Remains a stable (2) UTI due to extended-spectrum beta lactamase (ESBL) producing Escherichia coli: This is an 82yo F with a PMH of ESBL UTI, HTN, depression, dementia and LBBB who presents from [facility] with frequent falls and change to mental status over the past few days. -Not any better since admission with occasional agitation and more confusion -Fall yesterday on 08/05, ongoing agitation and hallucinations over past few days -CT head negative for acute changes -Ddx: Side effect of Ertapenem vs ongoing UTI -Daughter discussed with Dr. Steiner yesterday, who recommended holding Ertapenem and giving Fosfomycin x 1 -In touch with [facility] to clarify whether or not dose has been given yet -ID consulted-appreciate input and recommendations -IV fluids -continue for now and monitor volume status -Urine culture has been negative -Denies any urinary symptoms -Will not start any antibiotic (3) Generalized weakness: Weakness in setting of infection -PT/OT evaluation, conditioning for possible SNF placement -Awaiting placement to skilled care facility -Advance to the precaution to electronic -Will need placement (4) Diarrhea: Endorses a few episodes yesterday and today -C diff toxin ordered - THROAT: No sore throat, difficulty swallowing, or hoarseness. -Diarrhea is controlled (5) HTN (hypertension): Normotensive. Continue Toprol BID with hold parameters Blood pressure is controlled (6) Depression: Continue Remeron HS Dementia Seems to be acute delirium now Has acute delirium now but seems to be stable DVT Ppx: SQ heparin Code status: DNR per discussion with daughter/POA, patient Discussed with 2 daughters today They are reasonably happy with the management plan PCP: [facility] Dispo: Admitted to med/surg. Discharge planning ordered. Discussed with the daughter (7) Anorexia: She has not been eating or drinking since admission Will try a small amount of IV fluid Medications for appetite stimulation Awaiting for placement Continue IV fluid and repeat CBC and BMP in the morning Advised to push food and fluid Subjective 08/07 The patient was seen and examined in the medical floor in the presence of the daughter This is an 82yo F with a PMH of ESBL UTI, HTN, depression, dementia and LBBB who presents from [facility] with frequent falls and change to mental status over the past few days. Noted to have UTI secondary to ESBL Has occasional anxiety with agitation but denies any other symptoms 08/08 The patient was seen and examined the medical floor She is confused but agitation She has not been eating or drinking enough Denies any other symptoms 08/09 Patient was seen and examined in the medical floor She was very agitated and confused this morning Has any eating or drinking any since admission Denies any significant pain or shortness of breath 08/10 Patient was seen and examined in presence of the daughters She has been medically bright She has any eating or drinking 08/11 Patient was seen and examined in presence of daughter in medical floor She could manage to eat some yesterday but could not sleep through the whole night Much drowsy this morning without any acute distress Remains confused Review of Systems Constitutional: + fatigue, + weakness and + anorexia Neurologic: + confusion and + memory loss Psychiatric: + depression, + anxiety and + confusion Physical Exam Physical Exam: No apparent distress at rest Constitutional: + thin and + behavioral limitations Eyes: PERRL, conjunctivae normal, anicteric sclerae ENMT: external ear and nose normal, oropharynx normal Neck: trachea midline, no thyromegaly Respiratory: normal respiratory effort Auscultation: lungs clear to auscultation bilaterally Cardiovascular: Rate/Rhythm: regular rate and regular rhythm Heart Sounds: normal S1 and normal S2; no murmur Gastrointestinal (Abdomen): Inspection/Auscultation: abdomen normal to inspection and normal bowel sounds Percussion/Palpation: abdomen soft; abdomen nontender Psychiatric: Orientation: alert Affect: + anxious affect and + irritable affect Mood: + anxious mood Results & Data Vital Signs (Past 12 Hours) Vital Signs Temp Pulse Resp BP Pulse Ox 08/11/18 07:27 36.4 C L 66 18 142/80 H 94
[2018-08-11] MEDS: D5NSS + 20MEQ KCL 20 MEQ/1,000 ML BAG IV SCH ×2 (12:54→22:34)
[2018-08-11] MEDS: MIRTAZAPINE TAB 15 MG TAB PO SCH (20:47)
--- NOTE | 2018-08-11 21:36 | Infectious Disease Progress Nt ---
Date of Service August 11, 2018 Assessment & Plan (1) UTI due to extended-spectrum beta lactamase (ESBL) producing Escherichia coli: 82-year-old female with history of recurrent urinary tract infection under treatment for ESBL producing E. coli urinary tract infection, admitted with worsening dementia and encephalopathy. Possibly side effect of ertapenem, now better off this antibiotic. Follow-up urine culture negative, to hold further antibiotics. Will follow. (2) Metabolic encephalopathy: Subjective Patient seen in follow-up for acute encephalopathy. She remains somewhat confused, better than on admission. Remains afebrile. Cultures are negative. Review of Systems Review of Systems: All systems reviewed & are unremarkable except as noted in HPI & below Physical Exam Constitutional: well nourished, + thin, + altered mental status and comfortable; no acute distress Eyes: PERRL, conjunctivae normal, anicteric sclerae ENMT: external ear and nose normal, oropharynx normal Neck: trachea midline, no thyromegaly neck nontender Respiratory: normal respiratory effort, lungs clear to auscultation normal percussion; does not use accessory muscles Cardiovascular: Rate/Rhythm: regular rate and regular rhythm Heart Sounds: normal S1 and normal S2; no gallop, no murmur and no cardiac rub Vessels: normal peripheral pulses; no JVD Gastrointestinal (Abdomen): normal bowel sounds, soft, nontender, no hepatosplenomegaly Musculoskeletal: no cyanosis or clubbing, extremities motor strength 5/5 Spine: thoracic spine normal to inspection and lumbar spine normal to inspection; no cervical spinal tenderness Skin: no rashes, warm and dry normal turgor; no lesions Neurologic: moves all extremities and awake Psychiatric: Orientation: alert Motor Behavior: + psychomotor agitation Hallucinations: + visual hallucinations Lymphatic: no cervical or axillary lymphadenopathy no inguinal lympha denopathy Results & Data Vital Signs (Past 12 Hours) Vital Signs Temp Pulse Resp BP Pulse Ox 08/11/18 15:41 36.4 C L 89 18 106/64 98 Diagnostic Findings Microbiology 08/06/18 21:50 Urine,Clean Catch Urine Culture - Final No growth - less than 1,000 colonies/mL. 08/06/18 20:17 Blood Blood Culture - Preliminary No growth to date. 08/06/18 20:14 Blood Blood Culture - Preliminary No growth to date.
[2018-08-12 06:32] LABS: Basophils # (auto) 0.02 K/uL (0-0.2); Basophils % (auto) 0.3 %; Eosinophils # (auto) 0.15 K/uL (0-0.5); Eosinophils % (auto) 2.1 %; Hematocrit (blood only) 32.4 % (37-47); Hemoglobin 10.9 g/dL (12.0-16.0); Immature Granulocytes # (auto) 0.02 K/uL (0.00-0.02); Immature Granulocytes % (auto) 0.3 %; Lymphocytes # (auto) 1.31 K/uL (1.2-3.4); Mean Corpuscular Hgb Conc 33.6 g/dL (32-36); Mean Corpuscular Volume 93.1 fL (80-100); Mean Platelet Volume 10.4 fL (7.4-10.4); Monocytes # (auto) 0.84 K/uL (0.11-0.59); Monocytes % (auto) 11.6 %; Neutrophils # (auto) 4.92 K/uL (1.4-6.5); Neutrophils % (auto) 67.7 %; Platelet Count 285 K/uL (130-400); RDW Coefficient of Variation 14.7 % (11.5-14.5); Red Blood Count 3.48 M/uL (4.2-5.4); White Blood Count 7.26 K/uL (4.8-10.8)
[2018-08-12 06:47] LABS: BUN Creatinine Ratio 28.5 (10-20); Calcium 8.4 mg/dl (8.5-10.1); Creatinine Clr Calc Pharmacy 85.6 ml/min; Est GFR (Non-African American) 94.1; Potassium 4.1 mmol/L (3.5-5.1)
[2018-08-12] MEDS: MEGESTROL ACETATE SUSP 400 MG/10 ML UDC PO SCH (08:21)
[2018-08-12] MEDS: HEPARIN SOD 5,000 UNIT/0.5 ML VIAL SQ SCH ×2 (08:21→20:34)
[2018-08-12] MEDS: METOPROLOL SUCC 25MG EXT REL TAB PO SCH ×2 (08:21→20:40)
[2018-08-12] MEDS: ALPRAZolam 0.25 MG TABLET PO SCH ×2 (08:28→20:39)
[2018-08-12] MEDS: D5NSS + 20MEQ KCL 20 MEQ/1,000 ML BAG IV SCH (08:28)
--- NOTE | 2018-08-12 15:38 | Hospitalist Progress Note ---
Date of Service August 12, 2018 Assessment & Plan (1) Metabolic encephalopathy: Likely secondary to UTI with ESBL and complicated by having dementia and is on medications Symptomatic treatment Clinically better with acute confusion Ammonia level and other labs unremarkable Has been having occasional acute confusion Remains a stable with occasional confusion Explained the current medical condition with the daughters (2) UTI due to extended-spectrum beta lactamase (ESBL) producing Escherichia coli: This is an 82yo F with a PMH of ESBL UTI, HTN, depression, dementia and LBBB who presents from [facility] with frequent falls and change to mental status over the past few days. -Not any better since admission with occasional agitation and more confusion -Fall yesterday on 08/05, ongoing agitation and hallucinations over past few days -CT head negative for acute changes -Ddx: Side effect of Ertapenem vs ongoing UTI -Daughter discussed with Dr. Steiner yesterday, who recommended holding Ertapenem and giving Fosfomycin x 1 -In touch with [facility] to clarify whether or not dose has been given yet -ID consulted-appreciate input and recommendations -IV fluids -continue for now and monitor volume status -Urine culture has been negative -Denies any urinary symptoms -Will not start any antibiotic -Denies any urinary symptoms (3) Generalized weakness: Weakness in setting of infection -PT/OT evaluation, conditioning for possible SNF placement -Awaiting placement to skilled care facility -Advance to the precaution to electronic -Will need placement -Awaiting placement (4) Diarrhea: Endorses a few episodes yesterday and today -C diff toxin ordered - THROAT: No sore throat, difficulty swallowing, or hoarseness. -Diarrhea is controlled (5) HTN (hypertension): Normotensive. Continue Toprol BID with hold parameters Blood pressure is controlled (6) Depression: Continue Remeron HS Dementia Seems to be acute delirium now Has acute delirium now but seems to be stable DVT Ppx: SQ heparin Code status: DNR per discussion with daughter/POA, patient Discussed with 2 daughters today They are reasonably happy with the management plan PCP: [facility] Dispo: Admitted to med/surg. Discharge planning ordered. Discussed with the daughter (7) Anorexia: She has not been eating or drinking since admission Will try a small amount of IV fluid Medications for appetite stimulation Awaiting for placement Continue IV fluid and repeat CBC and BMP in the morning Advised to push food and fluid No significant change with Megace Will try nystatin for Oral thrush Subjective 08/07 The patient was seen and examined in the medical floor in the presence of the daughter This is an 82yo F with a PMH of ESBL UTI, HTN, depression, dementia and LBBB who presents from [facility] with frequent falls and change to mental status over the past few days. Noted to have UTI secondary to ESBL Has occasional anxiety with agitation but denies any other symptoms 08/08 The patient was seen and examined the medical floor She is confused but agitation She has not been eating or drinking enough Denies any other symptoms 08/09 Patient was seen and examined in the medical floor She was very agitated and confused this morning Has any eating or drinking any since admission Denies any significant pain or shortness of breath 08/10 Patient was seen and examined in presence of the daughters She has been medically bright She has any eating or drinking 08/11 Patient was seen and examined in presence of daughter in medical floor She could manage to eat some yesterday but could not sleep through the whole night Much drowsy this morning without any acute distress Remains confused 08/12 The patient was seen and examined in presence of 2 daughters She remains confused with occasional hallucination Has been eating or drinking much Complains some pain in the throat Review of Systems Constitutional: + fatigue, + weakness and + anorexia Neurologic: + confusion and + memory loss Psychiatric: + depression, + anxiety and + confusion Physical Exam Physical Exam: No apparent distress at rest Constitutional: + thin and + behavioral limitations Eyes: PERRL, conjunctivae normal, anicteric sclerae ENMT: external ear and nose normal, oropharynx normal Neck: trachea midline, no thyromegaly Respiratory: normal respiratory effort Auscultation: lungs clear to auscultation bilaterally Cardiovascular: Rate/Rhythm: regular rate and regular rhythm Heart Sounds: normal S1 and normal S2; no murmur Gastrointestinal (Abdomen): Inspection/Auscultation: abdomen normal to inspection and normal bowel sounds Percussion/Palpation: abdomen soft; abdomen nontender Psychiatric: Orientation: alert Affect: + anxious affect and + irritable affect Mood: + anxious mood Results & Data Vital Signs (Past 12 Hours) Vital Signs Temp Pulse Resp BP Pulse Ox 08/12/18 15:23 36.4 C L 83 20 109/66 95 08/12/18 07:05 36.9 C 86 20 120/71 98
[2018-08-12] MEDS: NYSTATIN SUSP 500,000 U/5 ML UDC PO SCH ×3 (18:11→20:34)
--- NOTE | 2018-08-12 19:15 | Infectious Disease Progress Nt ---
Date of Service August 12, 2018 Assessment & Plan (1) UTI due to extended-spectrum beta lactamase (ESBL) producing Escherichia coli: 82-year-old female with history of recurrent urinary tract infection under treatment for ESBL producing E. coli urinary tract infection, admitted with worsening dementia and encephalopathy. Possibly side effect of ertapenem, now better off this antibiotic. Follow-up urine culture negative, to hold further antibiotics. Will follow. (2) Metabolic encephalopathy: Subjective Patient seen in follow-up for acute encephalopathy. She remains somewhat confused, better than on admission. Remains afebrile. Cultures are negative. Physical Exam Constitutional: well nourished, + thin, + altered mental status and comfortable; no acute distress Eyes: PERRL, conjunctivae normal, anicteric sclerae ENMT: external ear and nose normal, oropharynx normal Neck: trachea midline, no thyromegaly neck nontender Respiratory: normal respiratory effort, lungs clear to auscultation normal percussion; does not use accessory muscles Cardiovascular: Rate/Rhythm: regular rate and regular rhythm Heart Sounds: normal S1 and normal S2; no gallop, no murmur and no cardiac rub Vessels: normal peripheral pulses; no JVD Gastrointestinal (Abdomen): normal bowel sounds, soft, nontender, no hepatosplenomegaly Musculoskeletal: no cyanosis or clubbing, extremities motor strength 5/5 Spine: thoracic spine normal to inspection and lumbar spine normal to inspection; no cervical spinal tenderness Skin: no rashes, warm and dry normal turgor; no lesions Neurologic: moves all extremities and awake Psychiatric: Orientation: alert Motor Behavior: + psychomotor agitation Hallucinations: + visual hallucinations Lymphatic: no cervical or axillary lymphadenopathy no inguinal lymphadenopathy Results & Data Vital Signs (Past 12 Hours) Vital Signs Temp Pulse Resp BP Pulse Ox 08/12/18 15:23 36.4 C L 83 20 109/66 95 Laboratory Results Short CBC 08/12/18 Range/Units 06:13 WBC 7.26 (4.8-10.8) K/uL Hgb 10.9 L (12.0-16.0) g/dL Hct 32.4 L (37-47) % Plt Count 285 (130-400) K/uL BMP 08/12/18 06:13 Sodium 145 Potassium 4.1 Chloride 115 H Carbon Dioxide 26 BUN 12 Creatinine 0.43 L Glucose 105 H Calcium 8.4 L Diagnostic Findings Microbiology 08/06/18 20:17 Blood Blood Culture - Final No growth 08/06/18 20:14 Blood Blood Culture - Final No growth 08/06/18 21:50 Urine,Clean Catch Urine Culture - Final No growth - less than 1,000 colonies/mL.
[2018-08-12] MEDS: MIRTAZAPINE TAB 15 MG TAB PO SCH (20:34)
[2018-08-13] MEDS: MEGESTROL ACETATE SUSP 400 MG/10 ML UDC PO SCH (08:55)
[2018-08-13] MEDS: METOPROLOL SUCC 25MG EXT REL TAB PO SCH ×2 (08:56→21:35)
[2018-08-13] MEDS: NYSTATIN SUSP 500,000 U/5 ML UDC PO SCH ×4 (08:56→21:34)
[2018-08-13] MEDS: HEPARIN SOD 5,000 UNIT/0.5 ML VIAL SQ SCH ×2 (08:56→21:32)
[2018-08-13] MEDS: ALPRAZolam 0.25 MG TABLET PO SCH ×2 (09:07→21:33)
[2018-08-13] MEDS: HALOPERIDOL 1 MG TAB PO PRN (13:08)
--- NOTE | 2018-08-13 14:13 | Hospitalist Progress Note ---
Date of Service August 13, 2018 Assessment & Plan (1) Metabolic encephalopathy: Likely secondary to UTI with ESBL and complicated by having dementia and is on medications Symptomatic treatment Clinically better with acute confusion Ammonia level and other labs unremarkable Has been having occasional acute confusion Remains a stable with occasional confusion Explained the current medical condition with the daughters For occasional agitation we will prescribe Haldol as needed Symptoms seems to be secondary to progression of dementia Discussed with the daughters Will discharge when she has a place to go for 24 hours care (2) UTI due to extended-spectrum beta lactamase (ESBL) producing Escherichia coli: This is an 82yo F with a PMH of ESBL UTI, HTN, depression, dementia and LBBB who presents from [facility] with frequent falls and change to mental status over the past few days. -Not any better since admission with occasional agitation and more confusion -Fall yesterday on 08/05, ongoing agitation and hallucinations over past few days -CT head negative for acute changes -Ddx: Side effect of Ertapenem vs ongoing UTI -Daughter discussed with Dr. Steiner yesterday, who recommended holding Ertapenem and giving Fosfomycin x 1 -In touch with [facility] to clarify whether or not dose has been given yet -ID consulted-appreciate input and recommendations -IV fluids -continue for now and monitor volume status -Urine culture has been negative -Denies any urinary symptoms -Will not start any antibiotic -Denies any urinary symptoms -Appreciate ID input and recommendation-no more antibiotic (3) Generalized weakness: Weakness in setting of infection -PT/OT evaluation, conditioning for possible SNF placement -Awaiting placement to skilled care facility -Advance to the precaution to electronic -Will need placement -Awaiting placement (4) Diarrhea: Endorses a few episodes yesterday and today -C diff toxin ordered - THROAT: No sore throat, difficulty swallowing, or hoarseness. -Diarrhea is controlled (5) HTN (hypertension): Normotensive. Continue Toprol BID with hold parameters Blood pressure is controlled (6) Depression: Continue Remeron HS Dementia Seems to be acute delirium now Has acute delirium now but seems to be stable DVT Ppx: SQ heparin Code status: DNR per discussion with daughter/POA, patient Discussed with 2 daughters today They are reasonably happy with the management plan PCP: Braxton Dispo: Admitted to med/surg. Discharge planning ordered. Discussed with the daughter (7) Anorexia: She has not been eating or drinking since admission Will try a small amount of IV fluid Medications for appetite stimulation Awaiting for placement Continue IV fluid and repeat CBC and BMP in the morning Advised to push food and fluid No significant change with Megace Will try nystatin for Oral thrush No improvement with Megace We will discontinue on discharge Subjective 08/07 The patient was seen and examined in the medical floor in the presence of the daughter This is an 82yo F with a PMH of ESBL UTI, HTN, depression, dementia and LBBB who presents from [facility] with frequent falls and change to mental status over the past few days. Noted to have UTI secondary to ESBL Has occasional anxiety with agitation but denies any other symptoms 08/08 The patient was seen and examined the medical floor She is confused but agitation She has not been eating or drinking enough Denies any other symptoms 08/09 Patient was seen and examined in the medical floor She was very agitated and confused this morning Has any eating or drinking any since admission Denies any significant pain or shortness of breath 08/10 Patient was seen and examined in presence of the daughters She has been medically bright She has any eating or drinking 08/11 Patient was seen and examined in presence of daughter in medical floor She could manage to eat some yesterday but could not sleep through the whole night Much drowsy this morning without any acute distress Remains confused 08/12 The patient was seen and examined in presence of 2 daughters She remains confused with occasional hallucination Has been eating or drinking much Complains some pain in the throat 08/13 The patient was seen and examined by me in presence of daughters She has not been drinking or eating and getting agitated at times She does not have any more infection and denies any significant symptoms Review of Systems Neurologic: Alert, awake but pleasantly confused. No focal neuro deficit Physical Exam Physical Exam: No apparent distress at rest Constitutional: + thin and + behavioral limitations Eyes: PERRL, conjunctivae normal, anicteric sclerae ENMT: external ear and nose normal, oropharynx normal Neck: trachea midline, no thyromegaly Respiratory: normal respiratory effort Auscultation: lungs clear to auscultation bilaterally Cardiovascular: Rate/Rhythm: regular rate and regular rhythm Heart Sounds: normal S1 and normal S2; no murmur Gastrointestinal (Abdomen): Inspection/Auscultation: abdomen normal to inspection and normal bowel sounds Percussion/Palpation: abdomen soft; abdomen nontender Psychiatric: Orientation: alert Affect: + anxious affect and + irritable affect Mood: + anxious mood Results & Data Vital Signs (Past 12 Hours) Vital Signs Temp Pulse Resp BP Pulse Ox 08/13/18 07:48 36.5 C 91 H 18 146/65 H 94
--- NOTE | 2018-08-13 14:50 | Infectious Disease Progress Nt ---
Date of Service August 13, 2018 Assessment & Plan (1) UTI due to extended-spectrum beta lactamase (ESBL) producing Escherichia coli: 82-year-old female with history of recurrent urinary tract infection under treatment for ESBL producing E. coli urinary tract infection, admitted with worsening dementia and encephalopathy. Possibly side effect of ertapenem, now better off this antibiotic. Follow-up urine culture negative, to hold further antibiotics. Will follow. (2) Metabolic encephalopathy: Subjective Patient seen in follow-up for acute encephalopathy. She remains somewhat confused, better than on admission. Remains afebrile. Cultures are negative. Review of Systems Review of Systems: All systems reviewed & are unremarkable except as noted in HPI & below Physical Exam Constitutional: well nourished, + thin, + altered mental status and comfortable; no acute distress Eyes: PERRL, conjunctivae normal, anicteric sclerae ENMT: external ear and nose normal, oropharynx normal Neck: trachea midline, no thyromegaly neck nontender Respiratory: normal respiratory effort, lungs clear to auscultation normal percussion; does not use accessory muscles Cardiovascular: Rate/Rhythm: regular rate and regular rhythm Heart Sounds: normal S1 and normal S2; no gallop, no murmur and no cardiac rub Vessels: normal peripheral pulses; no JVD Gastrointestinal (Abdomen): normal bowel sounds, soft, nontender, no hepatosplenomegaly Musculoskeletal: no cyanosis or clubbing, extremities motor strength 5/5 Spine: thoracic spine normal to inspection and lumbar spine normal to inspection; no cervical spinal tenderness Skin: no rashes, warm and dry normal turgor; no lesions Neurologic: moves all extremities and awake Psychiatric: Orientation: alert Motor Behavior: + psychomotor agitation Hallucinations: + visual hallucinations Lymphatic: no cervical or axillary lymphadenopathy no inguinal lympha denopathy Results & Data Vital Signs (Past 12 Hours) Vital Signs Temp Pulse Resp BP Pulse Ox 08/13/18 07:48 36.5 C 91 H 18 146/65 H 94 Laboratory Results Laboratory Results - last 48 hr 08/12/18 08/12/18 06:13 06:13 WBC 7.26 RBC 3.48 L Hgb 10.9 L Hct 32.4 L MCV 93.1 MCH 31.3 MCHC 33.6 RDW Std Deviation 50.0 H RDW Coeff of Bull 14.7 H Plt Count 285 MPV 10.4 Immature Gran % (Auto) 0.3 Neut % (Auto) 67.7 Lymph % (Auto) 18.0 [place] % (Auto) 11.6 Eos % (Auto) 2.1 Baso % (Auto) 0.3 Immature Gran # (Auto) 0.02 Neut # (Auto) 4.92 Lymph # (Auto) 1.31 [place] # (Auto) 0.84 H Eos # (Auto) 0.15 Baso # (Auto) 0.02 Sodium 145 Potassium 4.1 Chloride 115 H Carbon Dioxide 26 Anion Gap 4.0 BUN 12 Creatinine 0.43 L Est Cr Clr Drug Dosing 85.6 Est GFR ( Amer) 109.0 Est GFR (Non-Af Amer) 94.1 BUN/Creatinine Ratio 28.5 H Glucose 105 H Calcium 8.4 L Phosphorus 3.0 Magnesium 2.0 Diagnostic Findings Microbiology 08/06/18 20:17 Blood Blood Culture - Final No growth 08/06/18 20:14 Blood Blood Culture - Final No growth 08/06/18 21:50 Urine,Clean Catch Urine Culture - Final No growth - less than 1,000 colonies/mL.
[2018-08-13] MEDS: MIRTAZAPINE TAB 15 MG TAB PO SCH (21:34)
[2018-08-14] MEDS: MEGESTROL ACETATE SUSP 400 MG/10 ML UDC PO SCH (08:41)
[2018-08-14] MEDS: NYSTATIN SUSP 500,000 U/5 ML UDC PO SCH ×4 (08:41→20:35)
[2018-08-14] MEDS: METOPROLOL SUCC 25MG EXT REL TAB PO SCH ×2 (08:42→20:35)
[2018-08-14] MEDS: HEPARIN SOD 5,000 UNIT/0.5 ML VIAL SQ SCH ×2 (08:43→20:35)
[2018-08-14] MEDS: ALPRAZolam 0.25 MG TABLET PO SCH ×2 (08:44→20:41)
--- NOTE | 2018-08-14 13:40 | Hospitalist Progress Note ---
Date of Service August 14, 2018 Assessment & Plan (1) Metabolic encephalopathy: Likely secondary to UTI with ESBL and complicated by having dementia and is on medications Symptomatic treatment Clinically better with acute confusion Ammonia level and other labs unremarkable Has been having occasional acute confusion Remains a stable with occasional confusion Explained the current medical condition with the daughters For occasional agitation we will prescribe Haldol as needed Symptoms seems to be secondary to progression of dementia Discussed with the daughters Will discharge when she has a place to go for 24 hours care Awaiting for placement Medically stable (2) UTI due to extended-spectrum beta lactamase (ESBL) producing Escherichia coli: This is an 82yo F with a PMH of ESBL UTI, HTN, depression, dementia and LBBB who presents from [facility] with frequent falls and change to mental status over the past few days. -Not any better since admission with occasional agitation and more confusion -Fall yesterday on 08/05, ongoing agitation and hallucinations over past few days -CT head negative for acute changes -Ddx: Side effect of Ertapenem vs ongoing UTI -Daughter discussed with Dr. Steiner yesterday, who recommended holding Ertapenem and giving Fosfomycin x 1 -In touch with [facility] to clarify whether or not dose has been given yet -ID consulted-appreciate input and recommendations -IV fluids -continue for now and monitor volume status -Urine culture has been negative -Denies any urinary symptoms -Will not start any antibiotic -Denies any urinary symptoms -Appreciate ID input and recommendation-no more antibiotic (3) Generalized weakness: Weakness in setting of infection -PT/OT evaluation, conditioning for possible SNF placement -Awaiting placement to skilled care facility -Advance to the precaution to electronic -We will need physical therapy as an outpatient (4) Diarrhea: Endorses a few episodes yesterday and today -C diff toxin ordered - THROAT: No sore throat, difficulty swallowing, or hoarseness. -Diarrhea is controlled (5) HTN (hypertension): Normotensive. Continue Toprol BID with hold parameters Blood pressure is controlled (6) Depression: Continue Remeron HS Dementia Seems to be acute delirium now Has acute delirium now but seems to be stable DVT Ppx: SQ heparin Code status: DNR per discussion with daughter/POA, patient Discussed with 2 daughters today They are reasonably happy with the management plan PCP: Braxton Dispo: Admitted to med/surg. Discharge planning ordered. Discussed with the daughter (7) Anorexia: She has not been eating or drinking since admission Will try a small amount of IV fluid Medications for appetite stimulation Awaiting for placement Continue IV fluid and repeat CBC and BMP in the morning Advised to push food and fluid No significant change with Megace Will try nystatin for Oral thrush No improvement of appetite with Megace (8) Dementia: She has significant dementia Has been having occasional confusion which might have been contributed by antibiotic use with ertapenem and/or UTI The daughter is aware updated about her current condition She will need 24-hour care, physical therapy and supervised feeding Subjective 08/07 The patient was seen and examined in the medical floor in the presence of the daughter This is an 82yo F with a PMH of ESBL UTI, HTN, depression, dementia and LBBB who presents from [facility] with frequent falls and change to mental status over the past few days. Noted to have UTI secondary to ESBL Has occasional anxiety with agitation but denies any other symptoms 08/08 The patient was seen and examined the medical floor She is confused but agitation She has not been eating or drinking enough Denies any other symptoms 08/09 Patient was seen and examined in the medical floor She was very agitated and confused this morning Has any eating or drinking any since admission Denies any significant pain or shortness of breath 08/10 Patient was seen and examined in presence of the daughters She has been medically bright She has any eating or drinking 08/11 Patient was seen and examined in presence of daughter in medical floor She could manage to eat some yesterday but could not sleep through the whole night Much drowsy this morning without any acute distress Remains confused 08/12 The patient was seen and examined in presence of 2 daughters She remains confused with occasional hallucination Has been eating or drinking much Complains some pain in the throat 08/13 The patient was seen and examined by me in presence of daughters She has not been drinking or eating and getting agitated at times She does not have any more infection and denies any significant symptoms 08/14 Patient was seen and examined in medical floor Confusion is better today He has not been eating or drinking Has had some physical therapy yesterday Explained her current situation to the daughters Likely to be discharged when there is a place available for Review of Systems Constitutional: + fatigue, + weakness and + anorexia Neurologic: + confusion and + memory loss Psychiatric: + depression, + anxiety and + confusion Physical Exam Physical Exam: No apparent distress at rest Constitutional: + thin and + behavioral limitations Eyes: PERRL, conjunctivae normal, anicteric sclerae ENMT: external ear and nose normal, oropharynx normal Neck: trachea midline, no thyromegaly Respiratory: normal respiratory effort Auscultation: lungs clear to auscultation bilaterally Cardiovascular: Rate/Rhythm: regular rate and regular rhythm Heart Sounds: normal S1 and normal S2; no murmur Gastrointestinal (Abdomen): Inspection/Auscultation: abdomen normal to ins pection and normal bowel sounds Percussion/Palpation: abdomen soft; abdomen nontender Psychiatric: Orientation: alert Affect: + anxious affect and + irritable affect (At time) Mood: + anxious mood (At times) Lymphatic: no cervical or axillary lymphadenopathy Results & Data Vital Signs (Past 12 Hours) Vital Signs Temp Pulse Resp BP Pulse Ox 08/14/18 07:03 36.6 C 86 20 146/70 H 92
--- NOTE | 2018-08-14 19:55 | Infectious Disease Progress Nt ---
Date of Service August 14, 2018 Assessment & Plan (1) UTI due to extended-spectrum beta lactamase (ESBL) producing Escherichia coli: 82-year-old female with history of recurrent urinary tract infection under treatment for ESBL producing E. coli urinary tract infection, admitted with worsening dementia and encephalopathy. Possibly side effect of ertapenem, now better off this antibiotic. Follow-up urine culture negative, to hold further antibiotics. Will follow. (2) Metabolic encephalopathy: Subjective Patient seen in follow-up for acute encephalopathy. She remains somewhat confused, better than on admission. Remains afebrile. Cultures are negative. Physical Exam Constitutional: well nourished, + thin, + altered mental status and comfortable; no acute distress Eyes: PERRL, conjunctivae normal, anicteric sclerae ENMT: external ear and nose normal, oropharynx normal Neck: trachea midline, no thyromegaly neck nontender Respiratory: normal respiratory effort, lungs clear to auscultation normal percussion; does not use accessory muscles Cardiovascular: Rate/Rhythm: regular rate and regular rhythm Heart Sounds: normal S1 and normal S2; no gallop, no murmur and no cardiac rub Vessels: normal peripheral pulses; no JVD Gastrointestinal (Abdomen): normal bowel sounds, soft, nontender, no hepatosplenomegaly Musculoskeletal: no cyanosis or clubbing, extremities motor strength 5/5 Spine: thoracic spine normal to inspection and lumbar spine normal to inspection; no cervical spinal tenderness Skin: no rashes, warm and dry normal turgor; no lesions Neurologic: moves all extremities and awake Psychiatric: Orientation: alert Motor Behavior: + psychomotor agitation Hallucinations: + visual hallucinations Lymphatic: no cervical or axillary lymphadenopathy no inguinal lymphadenopathy Results & Data Vital Signs (Past 12 Hours) Vital Signs Temp Pulse Resp BP Pulse Ox 08/14/18 15:26 37.0 C 64 20 108/67 95 Diagnostic Findings Microbiology 08/06/18 20:17 Blood Blood Culture - Final No growth 08/06/18 20:14 Blood Blood Culture - Final No growth 08/06/18 21:50 Urine,Clean Catch Urine Culture - Final No growth - less than 1,000 colonies/mL.
[2018-08-14] MEDS: MIRTAZAPINE TAB 15 MG TAB PO SCH (20:35)
[2018-08-15] MEDS: METOPROLOL SUCC 25MG EXT REL TAB PO SCH (08:35)
[2018-08-15] MEDS: MEGESTROL ACETATE SUSP 400 MG/10 ML UDC PO SCH (08:36)
[2018-08-15] MEDS: NYSTATIN SUSP 500,000 U/5 ML UDC PO SCH ×2 (08:36→13:24)
[2018-08-15] MEDS: HEPARIN SOD 5,000 UNIT/0.5 ML VIAL SQ SCH (08:36)
[2018-08-15] MEDS: ALPRAZolam 0.25 MG TABLET PO SCH (08:40)
--- NOTE | 2018-08-15 15:41 | Hospitalist Progress Note ---
Date of Service August 15, 2018 Assessment & Plan (1) Metabolic encephalopathy: Likely secondary to UTI with ESBL and complicated by having dementia and is on medications Symptomatic treatment Clinically better with acute confusion Ammonia level and other labs unremarkable Has been having occasional acute confusion Remains a stable with occasional confusion Explained the current medical condition with the daughters For occasional agitation we will prescribe Haldol as needed Symptoms seems to be secondary to progression of dementia Update provided to daughter Medically stable Will discharge to SNF today (2) UTI due to extended-spectrum beta lactamase (ESBL) producing Escherichia coli: This is an 82yo F with a PMH of ESBL UTI, HTN, depression, dementia and LBBB who presents from [facility] with frequent falls and change to mental status over the past few days. -Not any better since admission with occasional agitation and more confusion -Fall yesterday on 08/05, ongoing agitation and hallucinations over past few days -CT head negative for acute changes -Ddx: Side effect of Ertapenem vs ongoing UTI -Daughter discussed with Dr. Steiner yesterday, who recommended holding Ertapenem and giving Fosfomycin x 1 -In touch with [facility] to clarify whether or not dose has been given yet -ID consulted-appreciate input and recommendations -IV fluids -continue for now and monitor volume status -Urine culture has been negative -Denies any urinary symptoms -Will not start any antibiotic -Denies any urinary symptoms -Appreciate ID input and recommendation-no more antibiotic (3) Generalized weakness: Weakness in setting of infection -PT/OT evaluation, conditioning for possible SNF placement -Awaiting placement to skilled care facility -Advance to the precaution to electronic -Continue physical therapy and occupational therapy as an outpatient (4) Diarrhea: -Endorses a few episodes yesterday and today -C diff toxin ordered - THROAT: No sore throat, difficulty swallowing, or hoarseness. -Diarrhea is controlled (5) HTN (hypertension): Normotensive. Continue Toprol BID with hold parameters Blood pressure is controlled (6) Anorexia: Very poor appetite Medications for appetite stimulation Continue Megace Will try nystatin for Oral thrush No improvement of appetite with Megace (7) Dementia: She has significant dementia Has been having occasional confusion which might have been contributed by antibiotic use with ertapenem and/or UTI The daughter is aware updated about her current condition She will need 24-hour care, physical therapy and supervised feeding (8) Depression: Continue Remeron HS Dementia Seems to be acute delirium now Has acute delirium now but seems to be stable DVT Ppx: SQ heparin Code status: DNR per discussion with daughter/POA, patient PCP: Braxton Dispo: Discharge to [facility] Subjective Pt was seen and examined Lying in bed with no distress with daughter at bedside Daughter said that pt seems much better today Continue to have low appetite Denies any chest pain, palpitation, dizziness and SOB Physical Exam Physical Exam: Physical Exam: No acute distress Constitutional: + thin and + behavioral limitations Eyes: PERRL, conjunctivae normal, anicteric sclerae ENMT: external ear and nose normal, oropharynx normal Neck: trachea midline, no thyromegaly Respiratory: lungs clear to auscultation bilaterally Cardiovascular: Regular, no murmur Gastrointestinal: +BS, non tender, non distended Psychiatric: alert, mood anxiety, Lymphatic: no cervical or axillary lymphadenopathy Results & Data Vital Signs (Past 12 Hours) Vital Signs Temp Pulse Resp BP Pulse Ox 08/15/18 15:24 36.2 C L 91 H 21 108/68 97 08/15/18 07:14 36.4 C L 65 18 107/67 99
[2018-08-15] MEDS: HALOPERIDOL 1 MG TAB PO PRN (16:25)
--- NOTE | 2018-08-17 00:14 | Discharge Summary ---
Date of Service August 15, 2018 Admission HPI Per Admitting Provider This is an 82yo F with a PMH of ESBL UTI, HTN, depression, dementia and LBBB who presents from [facility] with frequent falls and change to mental status over the past few days. Was diagnosed with a UTI 2 weeks ago and culture grew ESBL E Coli. He was first treated with Ceftin and then transition to IV ertapenem last week. Was discharged back to facility with midline in place and has received 6 doses of antibiotic. Had a fall yesterday and was seen in the ED before being discharged back to facility. Has become increasingly agitated with hallucinations and bad dreams, per daughter. Also with continued generalized weakness, urinary incontinence and decreased appetite. Daughter spoke with Dr. Steiner of ID, who recommended that patient come to ED for further evaluation. Also recommended holding IV ertapenem and transitioning to Fosfomycin. It is not clear if patient has received dose yet or not. Will clarify with staff at [facility] and consult ID. Patient feels lightheaded and generally weak. Still experiencing dysuria and some incontinence. Has had a few episodes of diarrhea since yesterday. Denies any fever, chills, headache, chest pain, shortness of breath, nausea, vomiting, abdominal pain or constipation. Daughter/POA is interested in patient transitioning to SNF -- has noted significant decrease in patient's functional capacity in the past few weeks. Admission Exam Per Admitting Provider General Appearance: WD/WN, no apparent distress, elderly, frail, thin Head: normocephalic, atraumatic Eyes: normal inspection, PERRL, EOMI ENT: hearing grossly normal, pharynx normal (moist mucous membranes) Neck: supple, no JVD, no adenopathy Respiratory/Chest: lungs clear to auscultation. No wheezes, rales or rhonci. No respiratory distress or accessory muscle use Cardiovascular: regular rate, rhythm, no murmur, normal peripheral pulses Abdomen/GI: normal bowel sounds, soft, non-tender to palpation Extremities/Musculoskelatal: normal inspection, no calf tenderness, normal capillary refill, no pedal edema Neurologic/Psych: alert, depressed mood, oriented to person & place but not time. Able to follow commands. Skin: normal color, warm/dry Principal Diagnosis Metabolic encephalopathy UTI Weakness Diarrhea HTN Depression Discharge Exam Physical Exam: No acute distress Constitutional: + thin and + behavioral limitations Eyes: PERRL, conjunctivae normal, anicteric sclerae ENMT: external ear and nose normal, oropharynx normal Neck: trachea midline, no thyromegaly Respiratory: lungs clear to auscultation bilaterally Cardiovascular: Regular, no murmur Gastrointestinal: +BS, non tender, non distended Psychiatric: alert, mood anxiety, Lymphatic: no cervical or axillary lymphadenopathy Discharge Data Allergies Allergy/AdvReac Type Severity Reaction Status Date / Time Iodinated Contrast- Oral and Allergy Severe Pt unable Verified 08/06/18 13:07 IV Dye to describe celecoxib Allergy Mild Unknown Verified 08/06/18 13:07 Macrolide Antibiotics Allergy Mild Unknown Verified 08/06/18 13:07 Corticosteroids Allergy Unknown Unknown Verified 08/06/18 13:07 (Glucocorticoids) Sulfa (Sulfonamide Allergy Unknown Unknown Verified 08/06/18 13:07 Antibiotics) dextromethorphan AdvReac Intermediate DIZZY Verified 08/06/18 13:07 guaifenesin AdvReac Intermediate DIZZY Verified 08/06/18 13:07 procaterol AdvReac Intermediate Palpitation Verified 08/06/18 13:07 s yellow dye AdvReac Intermediate DIZZY Verified 08/06/18 13:07 erythromycin base AdvReac Unknown stomach Verified 08/06/18 13:07 upset Consultations 08/06/18 16:35 ED Decision to Admit Stat 08/06/18 19:14 Consult Case Management - Discharge Planning Routine Consult Infectious Diseases Routine Ordered Studies 08/06/18 13:53 CT head/brain wo con Stat XR chest 1V portable HISTORY: 82 years-old Female weakness acute weakness COMPARISON: Chest radiograph 03/02/2018 TECHNIQUE: Portable AP view of the chest FINDINGS: Cardiac silhouette is mildly enlarged, unchanged. Calcification of the thoracic aortic arch. Suggested emphysema with chronic interstitial coarsening. No pneumothorax, pleural effusion, focal airspace consolidation or overt pulmonary edema. Degenerative changes of the shoulders and spine. IMPRESSION: No acute process. The above report was generated using voice recognition software. It may contain grammatical, syntax or spelling errors. Electronically signed by: Parvez Rhoades M.D. 08/06/2018 2:11 PM Dictated: 08/06/18 1410 Transcribed: 08/06/[address] head/brain wo con CLINICAL HISTORY: 82 years-old Female with AMS. Acutely altered mental status TECHNIQUE: Multiple axial CT images of the head were obtained without contrast. A dose lowering technique was utilized adhering to the principles of ALARA. CT DOSE: 720.95 mGycm COMPARISON: CT head 03/02/2018. FINDINGS: No acute intracranial hemorrhage, midline shift, intracranial mass, hydrocephalus, territorial ischemia or abnormal extra-axial collection. Age- related involutional changes. Minimal white matter hypodensities redemonstrated suggestive of chronic microvascular ischemic disease. Cerebral vascular calcifications are noted. The calvarium is intact. Mild mucosal thickening about the ethmoid air cells. Mastoid air cells and middle ear cavities are clear. Soft tissues and orbits are unremarkable. Prior bilateral cataract repair. IMPRESSION: No acute intracranial abnormality. The above report was generated using voice recognition software. It may contain grammatical, syntax or spelling errors. Electronically signed by: Parvez Rhoades M.D. 08/06/2018 3:32 PM Dictated: 08/06/18 1530 Transcribed: 08/06/18 1530 Hospital Course (1) Metabolic encephalopathy: Likely secondary to UTI with ESBL and complicated by having dementia and is on medications Symptomatic treatment Clinically better with acute confusion Ammonia level and other labs unremarkable Has been having occasional acute confusion Remains a stable with occasional confusion Explained the current medical condition with the daughters For occasional agitation we will prescribe Haldol as needed Symptoms seems to be secondary to progression of dementia Update provided to daughter Medically stable Will discharge to SNF today (2) UTI due to extended-spectrum beta lactamase (ESBL) producing Escherichia coli: This is an 82yo F with a PMH of ESBL UTI, HTN, depression, dementia and LBBB who presents from [facility] with frequent falls and change to mental status over the past few days. -Not any better since admission with occasional agitation and more confusion -Fall yesterday on 08/05, ongoing agitation and hallucinations over past few days -CT head negative for acute changes -Ddx: Side effect of Ertapenem vs ongoing UTI -Daughter discussed with Dr. Steiner yesterday, who recommended holding Ertapenem and giving Fosfomycin x 1 -In touch with [facility] to clarify whether or not dose has been given yet -ID consulted-appreciate input and recommendations -IV fluids -continue for now and monitor volume status -Urine culture has been negative -Denies any urinary symptoms -Will not start any antibiotic -Denies any urinary symptoms -Appreciate ID input and recommendation-no more antibiotic (3) Generalized weakness: Weakness in setting of infection -PT/OT evaluation, conditioning for possible SNF placement -Awaiting placement to skilled care facility -Advance to the precaution to electronic -Continue physical therapy and occupational therapy as an outpatient (4) Diarrhea: -Endorses a few episodes yesterday and today -C diff toxin ordered - THROAT: No sore throat, difficulty swallowing, or hoarseness. -Diarrhea is controlled (5) HTN (hypertension): Normotensive. Continue Toprol BID with hold parameters Blood pressure is controlled (6) Anorexia: Very poor appetite Medications for appetite stimulation Continue Megace Will try nystatin for Oral thrush No improvement of appetite with Megace (7) Dementia: She has significant dementia Has been having occasional confusion which might have been contributed by antibiotic use with ertapenem and/or UTI The daughter is aware updated about her current condition She will need 24-hour care, physical therapy and supervised feeding (8) Depression: Continue Remeron HS Dementia Seems to be acute delirium now Has acute delirium now but seems to be stable DVT Ppx: SQ heparin Code status: DNR per discussion with daughter/POA, patient PCP: [facility] Dispo: Discharge to [facility] Total Time Total Time Spent Total Time Spent (In Minutes): 35 minutes Total Time Includes: Examination of the Patient, Discharge Planning, Medication Reconciliation, Communication With Other Providers and Other Discharge Plan Discharge Items Patient Disposition[facility] Reason For Visit: ESBL UTI,FALLS,AMS Discharge Diagnosis: Metabolic encephalopathy UTI Weakness Discharge Goals: Decrease discomfort, Improve disease control, Improve function and Increase independence Activity: Resume your previous activity Activity Comment: as tolerated Non-emergency contact: Primary Care Provider Call non-emergency contact if: you have any medication questions and your temperature is above 101 Follow-up/Referrals: Alonzo Limon, [Primary Care Provider] - Diet: Heart Healthy Addtl Provider Instructions: Follow up with your primary care provider once discharge form [facility] Continue physical and occupational therapy Fall precaution Prescriptions: New nystatin 100,000 unit/mL Suspension 5 ml PO QID 7 Days Qty: 140 RF: 0 haloperidol 1 mg Tablet 1 mg PO Q12H PRN (Reason: agitation) Qty: 30 RF: 0 megestrol 400 mg/10 mL (40 mg/mL) Suspension 10 mg PO QAM Qty: 240 RF: 0 phenazopyridine [Pyridium] 100 mg Tablet 100 mg PO TID PRN (Reason: bladder spasms) 5 Days Qty: 14 RF: 0 Continued Colace Clear 50 mg Capsule 50 mg PO DAILY PRN (Reason: Constipation) RF: 0 mirtazapine 30 mg tablet 30 mg PO HS RF: 0 acetaminophen 325 mg Tablet 325 mg PO Q6H MDD 3gm/24hr PRN (Reason: Fever Or Pain) RF: 0 loperamide [Imodium A-D] 2 mg Capsule 2 mg PO QID PRN (Reason: Diarrhea) RF: 0 sennosides [Senokot] 8.6 mg Tablet 8.6 mg PO DAILY PRN (Reason: Constipation) RF: 0 alprazolam 0.25 mg tablet 0.125 mg PO BID RF: 0 metoprolol succinate 25 mg tablet extended release 24 hr 12.5 mg PO BID RF: 0 Azo Bladder Control 300 mg Capsule 1 dose PO UD PRN (Reason: NEEDED) RF: 0 Discontinued ertapenem 1 gram Recon Soln 1 g IV UD RF: 0 Stand-Alone Forms: [facility] Discharge Orders: Discharge Order (Routine); Ordered 08/15/18 Ordered By: Dustin Bailon Skilled Items Patient informed of condition?: Yes DNR: Yes Discharge Level of Care: Skilled Communicable Disease: No Discharge Prognosis: Stable Admission Data Admit Date/Time: 08/06/18 17:28 Attending Provider: Dustin Bailon Admit Provider: Laurence Garrido Primary Care Provider: Alonzo Limon Other Providers: Laurence Garrido ; Hernando Steiner ; Marium Hull Service: Medical Other Interventions: Discharge Summary Assessment (RN) Last Done: 08/15/18 15:55 DC Date/Time DO NOT enter until pt leaves facility: 08/15/18 17:10
== END 2018-08-15 17:10 | DRG 689 ==
LOC: ED 12:36 → SUATTDRO 17:28 → 4E 17:28 → 4W 08-07 19:15